=== PATIENT | female | born 1945 | race Caucasian/White ===

== ENCOUNTER 2018-08-20 19:31 | Inpatient (IN) | payer BC, MEDICAID ==
[~2018-08-20] VITALS: Ht 152.4 cm; Wt 74.7 kg
[~2018-08-20 19:31] MED LIST: ALEN70TA5 PO; ASPI81TA52 PO; CALC500T PO; ENAL5TAB PO; MTF1000T PO; SITA50TA2 PO
--- NOTE | 2018-08-20 21:26 | ERD ---
ER Documentation Chief Complaint Chief Complaint PALPITATIONS, SOB X 2 DAYS; HX OF RT BREAST CA, ON CHEMO HPI During the patient's encounter translation services were utilized Language: Aremenian Source: [employer]. 72-year-old female undergoing breast cancer chemotherapy at outside facility who presents the emergency room with 2 days of shortness of breath. The patient is describing palpitations. No chest pain or pressure or pleuritic pain. Bilateral lower extremity swelling is noted. Patient notes worsening shortness of breath over this timeframe. They do not know the medication she is taking for chemotherapy. No fevers chills or hemoptysis. Symptoms are moderate to severe. ROS All systems reviewed and are negative except as per history of present illness. Medications Home Meds Active Scripts Metformin* (Glucophage*) 1,000 Mg Tablet, 1000 MG PO BID, #60 TAB Prov:JANESSA MEDINA MD 11/25/15 Reported Medications Enalapril Maleate* (Enalapril Maleate*) 5 Mg Tablet, 5 MG PO DAILY, TAB 11/25/15 Calcium Carbonate* (Os-Cody 500*) 1 Tab Tablet, 1 TAB PO BID, TAB 11/25/15 Alendronate Sodium* (Fosamax*) 70 Mg Tablet, 70 MG PO Q7D, #4 TAB 11/25/15 Aspirin (Low Dose Aspirin) 81 Mg Tablet.dr, 81 MG PO DAILY, #30 TAB 11/25/15 Sitagliptin* (Januvia*) 50 Mg Tablet, 50 MG PO DAILY, #30 TAB 11/25/15 Allergies Allergies: Coded Allergies: No Known Allergy (Unverified , 11/25/15) PMhx/Soc History of Surgery: No Anesthesia Reaction: No Hx 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 Disorder: No Hx Respiratory Disorders: No Hx Cardiac Disorders: No Hx Psychiatric Problems: No Hx Miscellaneous Medical Probl: No Hx Alcohol Use: No Hx Substance Use: No Hx Tobacco Use: No FmHx Family History: No diabetes Physical Exam Vitals Vital Signs Date Temp Pulse Resp B/P (MAP) Pulse Ox O2 O2 Flow FiO2 Time Delivery Rate 08/20/18 118 30 122/85 100 BIPAP 22:44 (97) 08/20/18 124 100 50 21:36 08/20/18 122 29 124/83 99 21:20 (97) 08/20/18 Nasal 3 21:20 Cannula 08/20/18 97.7 135 32 165/72 98 20:40 (103) Physical Exam General: Increased work of breathing, anxious Head: Normocephalic, atraumatic. Eyes: Pupils equally reactive, EOM intact ENT: Moist mucous membranes Neck: Supple, no lymphadenopathy Respiratory: Scant rales at the right base, good aeration, increased work of breathing Cardiovascular: RRR, no murmurs, rubs, or gallops Abdominal: Soft, non-tender, non-distended, no peritoneal signs : Deferred MSK: bilateral lower extremity pitting edema, no unilateral swelling, 5/5 stre ngth Neurologic: Alert and oriented, moving all extremities, normal speech, no focal weakness, no cerebellar signs Skin: No rash Psych: Normal mood Result Diagram: 08/20/18213308/20/182133 Results 24 hrs Laboratory Tests Test 08/20/18 21:34 White Blood Count 6.2 10^3/ul Red Blood Count 3.59 10^6/ul Hemoglobin 10.2 g/dl Hematocrit 33.1 % Mean Corpuscular Volume 92.2 fl Mean Corpuscular Hemoglobin 28.4 pg Mean Corpuscular Hemoglobin Concent 30.8 g/dl Red Cell Distribution Width 18.4 % Platelet Count 304 10^3/UL Mean Platelet Volume 10.3 fl Immature Granulocytes % 1.500 % Neutrophils % 66.8 % Lymphocytes % 21.8 % Monocytes % 8.1 % Eosinophils % 1.3 % Basophils % 0.5 % Nucleated Red Blood Cells % 0.0 /100WBC Immature Granulocytes # 0.090 10^3/ul Neutrophils # 4.1 10^3/ul Lymphocytes # 1.4 10^3/ul Monocytes # 0.5 10^3/ul Eosinophils # 0.1 10^3/ul Basophils # 0.0 10^3/ul Nucleated Red Blood Cells # 0.0 10^3/ul Prothrombin Time 14.1 Sec Prothrombin Time Ratio 1.1 INR International Normalized Ratio 1.08 Activated Partial Thromboplast Time 36.0 Sec Sodium Level 144 mmol/L Potassium Level 4.8 mmol/L Chloride Level 107 mmol/L Carbon Dioxide Level 24 mmol/L Anion Gap 13 Blood Urea Nitrogen 14 mg/dl Creatinine 0.77 mg/dl Est Glomerular Filtrat Rate mL/min mL/min Glucose Level 183 mg/dl Calcium Level 9.3 mg/dl Total Bilirubin 0.2 mg/dl Direct Bilirubin 0.00 mg/dl Indirect Bilirubin 0.2 mg/dl Aspartate Amino Transf (AST/SGOT) 32 IU/L Alanine Aminotransferase (ALT/SGPT) 40 IU/L Alkaline Phosphatase 44 IU/L Troponin I 0.138 ng/ml B-Type Natriuretic Peptide 7300 PG/ML Total Protein 7.1 g/dl Albumin 3.9 g/dl Globulin 3.20 g/dl Albumin/Globulin Ratio 1.21 Current Medications Medications Dose Sig/Tera Start Time Status Last (Trade) Ordered Route PRN Stop Time Admin Dose Reason Admin Furosemide 40 mg ONCE ONCE 08/20/18 DC 08/20/18 (Lasix) IV 22:00 22:46 08/20/18 22:01 1 inch ONCE ONCE 08/20/18 DC 08/20/18 Nitroglycerin TD 22:00 22:46 08/20/18 22:01 (Nitroglyceri n 2% Oint) IV Flush 10 ml STK-MED 08/20/18 DC (NS 10 ml) ONCE .ROUTE 22:14 08/20/18 22:15 Sodium 100 ml @ ud STK-MED 08/20/18 DC Chloride ONCE .ROUTE 22:14 08/20/18 22:15 Iohexol 100 ml @ ud STK-MED 08/20/18 DC ONCE .ROUTE 22:14 08/20/18 22:15 Aspirin 162 mg ONCE ONCE 08/21/18 (Aspirin) PO 00:00 08/21/18 00:01 Procedures/MDM EKG, MONITORS, & DIAGNOSTIC IMAGING: EKG: I reviewed and interpreted a 12-lead EKG. Rhythm: Normal sinus rhythm ST Changes: No contiguous ST segment elevations T waves: No contiguous T wave inversions Impression: [No evidence of acute cardiac ischemia] Chest x-ray: I reviewed and interpreted a 1 view of the chest Mediastinum: No enlargement Cardiac silhouette: Mild cardiomegaly Airspace: Pulmonary edema Bones: No evidence of fracture CT PE: Pending LAB INTERPRETATION: I reviewed the laboratory testing and it shows small troponin elevation and BNP elevation MEDICAL DECISION MAKING: The patient has shortness of breath, increased work of breathing in the setting of breast cancer, chemotherapy and lower extremity edema. Consider possible chemotherapy-induced cardiomyopathy, CHF, pulmonary embolism, anxiety, pleural effusion. BP elevated but possibly stress response. Tx based on CXR if volume noted, lasix would be indication with mild NTG. Patient's work of breathing necessitates BIPAP. ER COURSE: * The patient was initially placed on positive pressure ventilation with improved symptomatology. She was given diuretic and nitroglycerin with appropriate preload and afterload reduction. The patient is better and has discontinued positive pressure ventilation. * Unclear etiology of the patient's non-ST elevation myocardial infarction. Consider possible chemo related cardiomyopathy, pulmonary embolism among others. The patient would warrant inpatient hospitalization and is unstable for transfer. * CTPA is pending at the time of signout. To be endorsed to the oncoming team and admitting team to follow-up. * Aspirin provided CONSULTATION: [None] DISPOSITION PLAN: Telemetry admission for management of non-ST elevation microinfarction Accepting care team and consultations: I discussed the current laboratory data, diagnostic imaging and emergency care provided. Admitting team: Dr. Dupree Admitting team indication: Insurance directed Critical Care Note: Total time: 30 minutes Indication/Organ System Threat: Acute respiratory failure I spent the above amount of critical care time with the patient, not including billable procedures. This included chart review, consultations, repeat bedside evaluations, and titration of appropriate medications to prevent cardiopulmonary or respiratory collapse. Departure Diagnosis: Primary Impression: Acute respiratory failure Respiratory failure complication: unspecified whether with hypoxia or hypercapnia Qualified Codes: J96.00 - Acute respiratory failure, unspecified whether with hypoxia or hypercapnia Additional Impressions: Acute pulmonary edema Non-ST elevation myocardial infarction (NSTEMI) History of breast cancer Condition: ANAM Barrios MD Aug 20, 2018 21:26
[2018-08-20] MEDS ORDERED: FUROSEMIDE 40 MG INJ IV ONE (22:00)
[2018-08-20] MEDS ORDERED: NITROGLYCERIN 2% 1 GM OINT PKT TD ONE (22:00)
[2018-08-20] MEDS ORDERED: IOHEXOL 100 ML ONE (22:14)
[2018-08-20] MEDS ORDERED: SOD CHLORIDE 0.9% 100 ML ONE (22:14)
[2018-08-21] VITALS (17 sets, daily range): BP systolic 78–127; BP diastolic 54–96; PULSE 95–108; RESP 20–39; Ht 152.4 cm; Wt 74.7 kg
[2018-08-21] MEDS ORDERED: ASPIRIN 81 MG TAB PO ONE
[2018-08-21] MEDS ORDERED: IBUPROFEN 200 MG TAB ONE (01:03)
[2018-08-21] MEDS ORDERED: ATOR20TA65 PO (01:22)
[2018-08-21] MEDS ORDERED: AMIT100T2 PO (01:22)
[2018-08-21] MEDS ORDERED: FENO134C PO (01:22)
[2018-08-21] MEDS ORDERED: ERGO500013 PO (01:22)
[2018-08-21] MEDS ORDERED: SITA1TAB5 PO (01:22)
[2018-08-21] MEDS ORDERED: CALC500T11 PO (01:22)
[2018-08-21] MEDS ORDERED: ASPI-817 PO (01:22)
[2018-08-21] MEDS ORDERED: LOSA1TAB22 PO (01:22)
[2018-08-21] MEDS ORDERED: METO-335 PO (01:22)
[2018-08-21] MEDS ORDERED: GABA300C16 PO (01:22)
[2018-08-21] MEDS ORDERED: INSU100I33 SQ (01:22)
[2018-08-21] MEDS ORDERED: NACL 0.9% 3 ML SYG IV SCH (04:00)
[2018-08-21] MEDS ORDERED: ONDANSETRON 4 MG INJ IV PRN ×2 (04:00)
[2018-08-21] MEDS ORDERED: NITROGLYCERIN (SL) 0.4 MG TAB SL PRN (04:00)
[2018-08-21] MEDS ORDERED: ACETAMINOPHEN 325 MG TAB PO PRN ×2 (04:00)
--- NOTE | 2018-08-21 05:51 | HP ---
Date/Time of Note Date/Time of Note DATE: 08/21/18 TIME: 05:47 Assessment/Plan VTE Prophylaxis Pharmacological prophylaxis: heparin Lines/Catheters IV Catheter Type (from Nrs): portacath accessed Assessment/Plan Assessment/Plan 1. Shortness of breath and palpitation, 2/2 new onset CHF: ?Side effect of chemo vs CAD -Obtain 2D echo -Lasix -Trend troponin -CTPA shows no PE 2. Positive troponin: NSTEMI vs demand ischemia -will treat as NSTEMI -Supplemental oxygen, aspirin, treatment of Lovenox 3. Right breast cancer on chemo: Oncology consult Result Diagram: 08/20/18213308/20/182133 Results 24hrs Laboratory Tests Test 08/20/18 21:34 08/21/18 03:42 White Blood Count 6.2 # Red Blood Count 3.59 #L Hemoglobin 10.2 #L Hematocrit 33.1 #L Mean Corpuscular Volume 92.2 Mean Corpuscular Hemoglobin 28.4 L Mean Corpuscular Hemoglobin Concent 30.8 L Red Cell Distribution Width 18.4 #H Platelet Count 304 Mean Platelet Volume 10.3 Immature Granulocytes % 1.500 H Neutrophils % 66.8 Lymphocytes % 21.8 Monocytes % 8.1 Eosinophils % 1.3 Basophils % 0.5 Nucleated Red Blood Cells % 0.0 Immature Granulocytes # 0.090 H Neutrophils # 4.1 Lymphocytes # 1.4 Monocytes # 0.5 Eosinophils # 0.1 Basophils # 0.0 Nucleated Red Blood Cells # 0.0 Prothrombin Time 14.1 Prothrombin Time Ratio 1.1 INR International Normalized Ratio 1.08 Activated Partial Thromboplast Time 36.0 H Sodium Level 144 Potassium Level 4.8 Chloride Level 107 Carbon Dioxide Level 24 Anion Gap 13 Blood Urea Nitrogen 14 Creatinine 0.77 Est Glomerular Filtrat Rate mL/min Glucose Level 183 Calcium Level 9.3 Total Bilirubin 0.2 Direct Bilirubin 0.00 Indirect Bilirubin 0.2 Aspartate Amino Transf (AST/SGOT) 32 Alanine Aminotransferase (ALT/SGPT) 40 Alkaline Phosphatase 44 Troponin I 0.138 *H 0.161 *H B-Type Natriuretic Peptide 7300 H Total Protein 7.1 Albumin 3.9 Globulin 3.20 Albumin/Globulin Ratio 1.21 Creatine Kinase 40 Creatine Kinase Index 4.3 Creatinine Kinase MB (Mass) 1.72 HPI/ROS Admit Date/Time Admit Date/Time Hx of Present Illness This is a 72-year-old female with a history of right breast cancer on chemo who was brought to the ER for a shortness of breath and palpitations. Symptoms been going on for the past 2 days. Denied chest pain. When she presented to ER, she was tachycardic with a heart rate of 135 and tachypneic in the high 20s. Chest x-ray shows mild pulmonary vascular congestion and mild cardiomegaly. CTPA shows findings suggestive of CHF. No PE. A 0.5 cm lung nodule was also noted. PMH/Family/Social Past Medical History Past Surgical History Past Surgical Hx: other (see hpi) Family History Significant Family History: other Social History Smoking Status: Unknown if ever smoked Drug Use: other Exam Constitutional: other (no acute distress) Eyes: EOMI, PERRL Neck: supple Respiratory: normal air movement Cardiovascular: nl pulses Gastrointestinal: soft Extremities: normal pulses Medications Current Medications Ondansetron HCl (Zofran Inj) 4 mg ER BRIDGE PRN IV NAUSEA/VOMITING; Start 07/27 12/13 at 00:00; Stop 08/21/18 at 23:59 Acetaminophen (Tylenol Tab) 650 mg ER BRIDGE PRN PO .MILD PAIN 1-3 OR TEMP; Start 08/21/18 at 00:00; Stop 08/21/18 at 23:59 IV Flush (NS 3 ml) 3 ml PER PROTOCOL IV ; Start 08/21/18 at 04:00 Ondansetron HCl (Zofran Inj) 4 mg Q6H PRN IV NAUSEA/VOMITING; Start 08/21/18 at 04:00 Nitroglycerin (Nitroglycerin (Sl Tab) 0.4 Mg) 1 tab Q5M PRN SL .CHEST PAIN; Start 08/21/18 at 04:00 Acetaminophen (Tylenol Tab) 650 mg Q6H PRN PO .PAIN 1-3 OR TEMP; Start 08/21/18 at 04:00 Heparin Sodium (Porcine) (Heparin (5000 Units/1ml)) 5,000 unit Q12 SC ; Start 08/21/18 at 09:00 Albuterol/ Ipratropium (Duoneb) 3 ml Q2H RESP THERAPY PRN HHN SHORTNESS OF BREATH; Start 08/21/18 at 04:00 Amitriptyline HCl (Elavil) 1,200 mg DAILY PO ; Start 08/21/18 at 09:00; Status UNV Aspirin (Halfprin) 81 mg DAILY PO ; Start 08/21/18 at 09:00 Atorvastatin Calcium (Lipitor) 20 mg DAILY@2100 PO ; Start 08/21/18 at 21:00 Calcium Carbonate (Oyster Shell Calcium) 1.25 gm DAILY PO ; Start 08/21/18 at 09:00 Enalapril Maleate (Vasotec) 5 mg DAILY PO ; Start 08/21/18 at 09:00 Gabapentin (Neurontin) 30 mg TID PO ; Start 08/21/18 at 09:00; Status UNV Metoprolol Succinate (Toprol Xl) 25 mg DAILY PO ; Start 08/21/18 at 09:00 Furosemide (Lasix) 20 mg DAILY IV ; Start 08/21/18 at 09:00 Fenofibrate (Tricor) 145 mg DAILY PO ; Start 08/21/18 at 09:00 Coded Allergies: No Known Allergy (Unverified , 08/21/18) Social History Smoking Status: Unknown if ever smoked Exam/Review of Systems Vital Signs Vitals Vital Signs Date Temp Pulse Resp B/P (MAP) Pulse Ox O2 O2 Flow FiO2 Time Delivery Rate 08/21/18 107 25 108/75 100 Nasal 2.0 04:45 (86) Cannula 08/20/18 50 21:36 08/20/18 97.7 20:40 EVERETT RUSSELL MD Aug 21, 2018 05:51
[2018-08-21] MEDS ORDERED: ENOXAPARIN 80 MG/0.8 ML SYG SC SCH (06:00)
[2018-08-21] MEDS ORDERED: NON-FORMULARY/PATIENT OWN MED (Fenofibrate, Micronized (Fenofibrate) 134 MG) PO SCH (09:00)
[2018-08-21] MEDS ORDERED: METOPROLOL (XL) 25 MG TAB PO SCH (09:00)
[2018-08-21] MEDS ORDERED: HEPARIN 5,000 UNIT/1 ML VIAL SC SCH (09:00)
[2018-08-21] MEDS ORDERED: AMITRIPTYLINE 50 MG TAB PO SCH (09:00)
[2018-08-21] MEDS ORDERED: ENALAPRIL 5 MG TAB PO SCH (09:00)
[2018-08-21] MEDS: FUROSEMIDE 20 MG INJ IV SCH (11:18)
[2018-08-21] MEDS: ASPIRIN (EC) 81 MG TAB PO SCH (11:26)
[2018-08-21] MEDS: FENOFIBRATE 145 MG TAB PO SCH (11:27)
[2018-08-21] MEDS: CALCIUM CARBONATE 1.25 GM TAB PO SCH (11:28)
[2018-08-21] MEDS ORDERED: SOD CHLORIDE 0.9% 500 ML IV ONE (14:30)
[2018-08-21] MEDS ORDERED: GLUCOSE GEL 15 GRAM TUBE BUCCAL PRN (15:00)
[2018-08-21] MEDS ORDERED: GLUCAGON 1 MG INJ IM PRN (15:00)
[2018-08-21] MEDS ORDERED: GLUCOSE GEL 15 GRAM TUBE PO PRN ×2 (15:00)
[2018-08-21] MEDS ORDERED: DEXTROSE 50% 50 ML SYRINGE IV PRN ×2 (15:00)
--- NOTE | 2018-08-21 15:27 | PN ---
Date/Time of Note Date/Time of Note DATE: 08/21/18 TIME: 15:16 Assessment/Plan VTE Prophylaxis Pharmacological prophylaxis: LMWH Lines/Catheters IV Catheter Type (from Nrs): portacath accessed Assessment/Plan Hospital Course Subjective : feels a bit better, hungry also having headaches, per son , patient has also been having flulike symptoms Objective : General: A&O x3, answering questions appropriately, obese, has lost all her hair, elderly, ill looking HEENT: NC/ AT. PERRL. EOM intact, + pallor Neck: supple CVS: S1, S2,tachycardia. no murmurs. no pain on chest wall palpation Lungs: CTA b/l. no wheezing or rhonchi, but quite diminished bilaterally Abd: soft, nontender, +BS Ext: moving all extremities, edema skin: no rashes CTA 08/21/18 2am : 1. Limited CT pulmonary angiogram due to breathing motion artifact. Negative for evidence of central PE in the main pulmonary arteries, lobar branches or first order segmental branches. Evaluation of subsegmental branches of the pulmonary arteries is not possible. 2. Interstitial pulmonary edema with interlobular septal thickening and right greater than left pleural effusions in keeping with volume overload or CHF. 3. Mild cardiomegaly. Reflux of contrast from the right heart into the intrahepatic IVC may be due to right heart dysfunction. 4. Focal bronchiolitis in the right middle lobe may be infectious or inflammatory. 5. 0.5 cm pulmonary nodule in the right middle lobe. In the absence of risk factors or a known primary neoplasm, no further imaging is required per 2017 Fleischner Society guidelines. In a high risk patient, follow-up low-dose chest CT at 12 months is optional. Alternatively, recommend correlation with previous imaging. assessment and plan: 72-year-old female undergoing breast cancer chemotherapy at outside facility who presents the emergency room with 2 days of shortness of breath managed as follws : 1. Resp failure, mild, acute , 2/2 #2, improved, now on 3L 2. Fluid overload, New CHF? -BNP 7300, f/u echo -2/2 #3 3. NSTEMI vs demand: 4. Hypotension -got lasix, metoprolol and enalapril, likely med induced 5. LRTI, Bronchiolitis 6. DM A1c 8.0 7. Breast Ca on weekly chemo [facility]?) 8. dyslipidemia 9. Hypochromic anemia : -likely 2/2 chronic disease PLAN: -change level of care to ICU based on hypotension -send blood and urine cultures -empiric abx -Cardiology consult, f/u echo report -No further diuresis for now -continue treatment dose lovenox -continue to trend troponins -SSI and diabetic diet -Continue supportive care Further interventions per course Care time >40mins Result Diagram: 08/21/18 0754 08/21/18 0754 Results 24hrs Laboratory Tests Test 08/20/18 21:34 08/21/18 03:42 08/21/18 07:54 08/21/18 09:41 White Blood Count 6.2 # 6.3 Red Blood Count 3.59 #L 3.71 L Hemoglobin 10.2 #L 10.5 L Hematocrit 33.1 #L 33.9 L Mean Corpuscular 92.2 91.4 Volume Mean Corpuscular 28.4 L 28.3 L Hemoglobin Mean Corpuscular 30.8 L 31.0 L Hemoglobin Concent Red Cell 18.4 #H 18.4 H Distribution Width Platelet Count 304 298 Mean Platelet Volume 10.3 10.0 Immature 1.500 H 1.300 H Granulocytes % Neutrophils % 66.8 70.6 Lymphocytes % 21.8 18.5 Monocytes % 8.1 7.6 Eosinophils % 1.3 1.7 Basophils % 0.5 0.3 Nucleated Red Blood 0.0 0.3 H Cells % Immature 0.090 H 0.080 H Granulocytes # Neutrophils # 4.1 4.5 Lymphocytes # 1.4 1.2 Monocytes # 0.5 0.5 Eosinophils # 0.1 0.1 Basophils # 0.0 0.0 Nucleated Red Blood 0.0 0.0 Cells # Prothrombin Time 14.1 Prothrombin Time 1.1 Ratio INR International 1.08 Normalized Ratio Activated 36.0 H Partial Thromboplast Time Sodium Level 144 145 H Potassium Level 4.8 4.8 Chloride Level 107 106 Carbon Dioxide Level 24 27 Anion Gap 13 12 Blood Urea Nitrogen 14 14 Creatinine 0.77 0.84 Est Glomerular Filtrat Rate mL/min Glucose Level 183 133 # Calcium Level 9.3 9.5 Total Bilirubin 0.2 0.3 Direct Bilirubin 0.00 0.00 Indirect Bilirubin 0.2 0.3 Aspartate Amino 32 30 Transf (AST/SGOT) Alanine 40 31 Aminotransferase (AL T/SGPT) Alkaline Phosphatase 44 43 Troponin I 0.138 *H 0.161 *H 0.121 H B-Type Natriuretic 7300 H Peptide Total Protein 7.1 7.2 Albumin 3.9 4.0 Globulin 3.20 3.20 Albumin/Globulin 1.21 1.25 Ratio Creatine Kinase 40 39 Creatine Kinase 4.3 3.9 Index Creatinine Kinase MB 1.72 1.53 (Mass) Hemoglobin A1c 8.0 H Magnesium Level 1.9 Triglycerides Level 193 H Cholesterol Level 118 LDL Cholesterol, 50 Calculated HDL Cholesterol 29 L Cholesterol/HDL 4.0 Ratio Thyroid Stimulating 4.060 Hormone (TSH) Test 08/21/18 11:30 08/21/18 11:42 08/21/18 12:24 Bedside Glucose 142 131 Lab Scanned Report LAB Exam/Review of Systems Exam Vitals Vital Signs Date Temp Pulse Resp B/P (MAP) Pulse Ox O2 O2 Flow FiO2 Time Delivery Rate 08/21/18 101 28 82/53 (63) 99 Nasal 2.0 13:30 Cannula 08/21/18 98.0 11:00 08/20/18 50 21:36 Results Results 24hrs Laboratory Tests Test 08/20/18 21:34 08/21/18 03:42 08/21/18 07:54 08/21/18 09:41 White Blood Count 6.2 # 6.3 Red Blood Count 3.59 #L 3.71 L Hemoglobin 10.2 #L 10.5 L Hematocrit 33.1 #L 33.9 L Mean Corpuscular 92.2 91.4 Volume Mean Corpuscular 28.4 L 28.3 L Hemoglobin Mean Corpuscular 30.8 L 31.0 L Hemoglobin Concent Red Cell 18.4 #H 18.4 H Distribution Width Platelet Count 304 298 Mean Platelet Volume 10.3 10.0 Immature 1.500 H 1.300 H Granulocytes % Neutrophils % 66.8 70.6 Lymphocytes % 21.8 18.5 Monocytes % 8.1 7.6 Eosinophils % 1.3 1.7 Basophils % 0.5 0.3 Nucleated Red Blood 0.0 0.3 H Cells % Immature 0.090 H 0.080 H Granulocytes # Neutrophils # 4.1 4.5 Lymphocytes # 1.4 1.2 Monocytes # 0.5 0.5 Eosinophils # 0.1 0.1 Basophils # 0.0 0.0 Nucleated Red Blood 0.0 0.0 Cells # Prothrombin Time 14.1 Prothrombin Time 1.1 Ratio INR International 1.08 Normalized Ratio Activated 36.0 H Partial Thromboplast Time Sodium Level 144 145 H Potassium Level 4.8 4.8 Chloride Level 107 106 Carbon Dioxide Level 24 27 Anion Gap 13 12 Blood Urea Nitrogen 14 14 Creatinine 0.77 0.84 Est Glomerular Filtrat Rate mL/min Glucose Level 183 133 # Calcium Level 9.3 9.5 Total Bilirubin 0.2 0.3 Direct Bilirubin 0.00 0.00 Indirect Bilirubin 0.2 0.3 Aspartate Amino 32 30 Transf (AST/SGOT) Alanine 40 31 Aminotransferase (AL T/SGPT) Alkaline Phosphatase 44 43 Troponin I 0.138 *H 0.161 *H 0.121 H B-Type Natriuretic 7300 H Peptide Total Protein 7.1 7.2 Albumin 3.9 4.0 Globulin 3.20 3.20 Albumin/Globulin 1.21 1.25 Ratio Creatine Kinase 40 39 Creatine Kinase 4.3 3.9 Index Creatinine Kinase MB 1.72 1.53 (Mass) Hemoglobin A1c 8.0 H Magnesium Level 1.9 Triglycerides Level 193 H Cholesterol Level 118 LDL Cholesterol, 50 Calculated HDL Cholesterol 29 L Cholesterol/HDL 4.0 Ratio Thyroid Stimulating 4.060 Hormone (TSH) Test 08/21/18 11:30 08/21/18 11:42 08/21/18 12:24 Bedside Glucose 142 131 Lab Scanned Report LAB Medications Medication Current Medications Ondansetron HCl (Zofran Inj) 4 mg ER BRIDGE PRN IV NAUSEA/VOMITING; Start 08/21/18 at 00:00; Stop 08/21/18 at 23:59 Acetaminophen (Tylenol Tab) 650 mg ER BRIDGE PRN PO .MILD PAIN 1-3 OR TEMP; Start 08/21/18 at 00:00; Stop 08/21/18 at 23:59 IV Flush (NS 3 ml) 3 ml PER PROTOCOL IV ; Start 08/21/18 at 04:00 Ondansetron HCl (Zofran Inj) 4 mg Q6H PRN IV NAUSEA/VOMITING; Start 08/21/18 at 04:00 Nitroglycerin (Nitroglycerin (Sl Tab) 0.4 Mg) 1 tab Q5M PRN SL .CHEST PAIN; Start 08/21/18 at 04:00 Acetaminophen (Tylenol Tab) 650 mg Q6H PRN PO .PAIN 1-3 OR TEMP; Start 08/21/18 at 04:00 Albuterol/ Ipratropium (Duoneb) 3 ml Q2H RESP THERAPY PRN HHN SHORTNESS OF BREATH; Start 08/21/18 at 04:00 Aspirin (Halfprin) 81 mg DAILY PO Last administered on 08/21/18at 11:26; Admin Dose 81 MG; Start 08/21/18 at 09:00 Atorvastatin Calcium (Lipitor) 20 mg DAILY@2100 PO ; Start 08/21/18 at 21:00 Calcium Carbonate (Oyster Shell Calcium) 1.25 gm DAILY PO Last administered on 08/21/18at 11:28; Admin Dose 1.25 GM; Start 08/21/18 at 09:00 Gabapentin (Neurontin) 300 mg TID PO ; Start 08/21/18 at 13:00 Furosemide (Lasix) 20 mg DAILY IV Last administered on 08/21/18at 11:18; Admin Dose 20 MG; Start 08/21/18 at 09:00 Fenofibrate (Tricor) 145 mg DAILY PO Last administered on 08/21/18at 11:27; Admin Dose 145 MG; Start 08/21/18 at 09:00 Enoxaparin Sodium (Lovenox) 75 mg Q12H SC Last administered on 08/21/18at 11:18; Admin Dose 75 MG; Start 08/21/18 at 06:00 Sodium Chloride 500 ml @ 500 mls/hr Q1H ONCE IV ; Start 08/21/18 at 14:30; Stop 08/21/18 at 15:29 Insulin Aspart (Novolog Insulin Pen) NOVOLOG *MILD* ALGORITHM WITH MEALS BEDTIME SC ; Start 08/21/18 at 18:00 Miscellaneous Information 1 ea NOTE XX ; Start 08/21/18 at 15:00 Glucose (Glutose) 15 gm Q15M PRN PO DECREASED GLUCOSE; Start 08/21/18 at 15:00 Glucose (Glutose) 22.5 gm Q15M PRN PO DECREASED GLUCOSE; Start 08/21/18 at 15:00 Dextrose (D50w Syringe) 25 ml Q15M PRN IV DECREASED GLUCOSE; Start 08/21/18 at 15:00 Dextrose (D50w Syringe) 50 ml Q15M PRN IV DECREASED GLUCOSE; Start 08/21/18 at 15:00 Glucagon (Glucagen) 1 mg Q15M PRN IM DECREASED GLUCOSE; Start 08/21/18 at 15:00 Glucose (Glutose) 15 gm Q15M PRN BUCCAL DECREASED GLUCOSE; Start 08/21/18 at 15:00 ALEXYS VÁZQUEZ Aug 21, 2018 15:27
--- NOTE | 2018-08-21 15:32 | RADRPT ---
Echocardiogram Report Patient Name: BRANDON PICHARDOPatient ID: [id number] : 1945 (72y 10m)Study Date: 08/21/2018 8:21:24 AM Gender: FAccession #: [id number] Tech: Haley Mcneil SHYAM [facility] Ref.Physician: EVERETT RUSSELL Height(Cm): BSA: Weight(Kg): Quality: AdequateAccount #: Procedures: Echocardiographic Report: Transthoracic echocardiogram with complete 2D, M-Mode, and doppler examination. Indications: NSTEMI. Measurements: 2D/M Mode Doppler Measurement Value Normal Range Measurement Value Normal Range LVIDd 2D 5.4 [ 3.8 - 5.2 ] cm AV Peak Carlos 0.9 [ 100.0 - 170.0 ] cm/sec LVIDs 2D 4.7 [ 2.2 - 3.5 ] cm AV Peak PG 4.0 [ 2.0 - 9.0 ] mmHg LVPWd 2D 0.9 [ 0.6 - 0.9 ] cm LVOT Peak Carlos 0.7 [ 70.0 - 110.0 ] cm/sec IVSd 2D 1.0 [ 0.6 - 0.9 ] cm LVOT Peak PG 2.0 [ 2.0 - 6.0 ] mmHg IVS/LVPW 2D 1.0 ratio AoR Diam 2D 2.6 [ 2.3 - 3.1 ] cm LA/Ao 2D 1 ratio LA Dimen 2D 3.8 [ 2.7 - 3.8 ] cm Findings: Left Ventricle: Normal left ventricular cavity size. Mild concentric left ventricular hypertrophy. Severe left ventricular systolic dysfunction. Ejection fraction is visually estimated at 30 %. Abnormal Diastolic Function. Right Ventricle: Normal right ventricular size. Normal right ventricular systolic function. Left Atrium: Upper limit of normal left atrial size. Right Atrium: The right atrium is normal in size. Mitral Valve: Mitral valve leaflets appear mildly thickened. Mild mitral annular calcification. Moderate mitral valve regurgitation. Aortic Valve: Normal appearance of the aortic valve. No significant aortic stenosis or insufficiency. Tricuspid Valve: Normal appearance of the tricuspid valve. There is mild tricuspid regurgitation. Pulmonic Valve: Normal pulmonic valve appearance. Pericardium: Normal pericardium with no significant pericardial effusion. Aorta: Normal aortic root. IVC: Normal size and normal respiratory collapse consistent with normal right atrial pressure. Conclusions: Normal left ventricular cavity size. Mild concentric left ventricular hypertrophy. Severe left ventricular systolic dysfunction. Ejection fraction is visually estimated at 30 %. Abnormal Diastolic Function. Normal right ventricular size. Normal right ventricular systolic function. Upper limit of normal left atrial size. The right atrium is normal in size. Moderate mitral valve regurgitation. No significant aortic stenosis or insufficiency. There is mild tricuspid regurgitation. Normal pericardium with no significant pericardial effusion. Electronically Signed By: Lucas Otto 2018-08-21 15:31:10 PDT
--- NOTE | 2018-08-21 16:10 | CONS ---
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 Echocardiogram with LV ejection fraction 30%. -Patient was put on antihypertensives and diuretics there was sudden drop in blood pressure. -Would hold antihypertensives at the current time, would continue diuretics as blood pressure and renal function tolerates -Troponins minimally elevated and trending down, this is likely secondary to decompensated congestive heart failure and overall clinical state -Continue telemetry monitoring. Consultation Date/Type/Reason Admit Date/Time Type of Consult Cardiology Reason for Consultation Shortness of breath and fatigue Date/Time of Note DATE: 08/21/18 TIME: 16:04 Hx of Present Illness This is a very pleasant 72-year-old female with history of breast cancer undergoing chemotherapy, hypertension who presents with multiple complaints. Patient underwent chemotherapy 1 week ago today for breast cancer. Since then, she has been feeling progressively weaker and tired. She also developed shortness of breath over the past few days, intermittent palpitations. She denies any chest pain. Because of worsening symptoms, she came to the emergency room for evaluation and care. With standing up, she does get symptoms of dizziness at times. She does feel weak but is requesting food. She does complain of intermittent nausea and abdominal discomfort. She denies any fevers or chills. She does have intermittent cough but is nonproductive. 12 point review of systems was performed with all pertinent positives and negatives mentioned above and all else is negative Past Medical History Breast cancer Medical History: diabetes, hypertension Home Meds Reported Medications Insulin Glargine,Hum.rec.anlog (Basaglar Kwikpen U-100) 100 Unit/1 Ml Insuln.pen, 40 UNIT SQ QHS 08/21/18 Sitagliptin Phos/Metformin HCl (Janumet 50-1,000 mg Tablet) 1 Each Tablet, 1 TAB PO BID for 30 Days, #60 08/21/18 Metoprolol Succinate* (Toprol XL*) 25 Mg Tab.sr.24h, 25 MG PO DAILY for 30 Days, #30 08/21/18 Amitriptyline Hcl* (Amitriptyline Hcl*) 100 Mg Tablet, 100 MG PO DAILY for 30 Days, #30 08/21/18 Fenofibrate, Micronized (Fenofibrate) 134 Mg Capsule, 134 MG PO DAILY for 30 Days, #30 08/21/18 Atorvastatin Calcium (Atorvastatin Calcium) 20 Mg Tablet, 20 MG PO DAILY for 30 Days, #30 08/21/18 Losartan-Hydrochlorothiazide (Losartan-HCTZ) 50-12.5 Mg Tab, 1 TAB PO DAILY for 30 Days, #30 08/21/18 Gabapentin* (Gabapentin*) 300 Mg Capsule, 300 MG PO TID for 30 Days, #90 08/21/18 Aspirin* (Aspirin* EC) 81 Mg Tablet.dr, 81 MG PO DAILY for 30 Days, #30 08/21/18 Ergocalciferol (Vitamin D2) (VITAMIN D2) 50,000 Unit Capsule, 19358 MG PO Q7D for 28 Days, #4 08/21/18 Calcium Carbonate (Oysco-500) 500 Mg Tablet, 500 MG PO DAILY for 30 Days, #60 08/21/18 Enalapril Maleate* (Enalapril Maleate*) 5 Mg Tablet, 5 MG PO DAILY, TAB 11/25/15 Calcium Carbonate* (Os-Cody 500*) 1 Tab Tablet, 1 TAB PO BID, TAB 11/25/15 Alendronate Sodium* (Fosamax*) 70 Mg Tablet, 70 MG PO Q7D PRN for QFRI, #4 TAB 11/25/15 Discontinued Reported Medications Aspirin (Low Dose Aspirin) 81 Mg Tablet.dr, 81 MG PO DAILY, #30 TAB 11/25/15 Sitagliptin* (Januvia*) 50 Mg Tablet, 50 MG PO DAILY, #30 TAB 11/25/15 Discontinued Scripts Metformin* (Glucophage*) 1,000 Mg Tablet, 1000 MG PO BID, #60 TAB Prov:JANESSA MEDINA MD 11/25/15 Medications Current Medications Ondansetron HCl (Zofran Inj) 4 mg ER BRIDGE PRN IV NAUSEA/VOMITING; Start 08/21/18 at 00:00; Stop 08/21/18 at 23:59 Acetaminophen (Tylenol Tab) 650 mg ER BRIDGE PRN PO .MILD PAIN 1-3 OR TEMP; Start 08/21/18 at 00:00; Stop 08/21/18 at 23:59 IV Flush (NS 3 ml) 3 ml PER PROTOCOL IV ; Start 08/21/18 at 04:00 Ondansetron HCl (Zofran Inj) 4 mg Q6H PRN IV NAUSEA/VOMITING; Start 08/21/18 at 04:00 Nitroglycerin (Nitroglycerin (Sl Tab) 0.4 Mg) 1 tab Q5M PRN SL .CHEST PAIN; Start 08/21/18 at 04:00 Acetaminophen (Tylenol Tab) 650 mg Q6H PRN PO .PAIN 1-3 OR TEMP Last administered on 08/21/18at 15:33; Admin Dose 650 MG; Start 08/21/18 at 04:00 Albuterol/ Ipratropium (Duoneb) 3 ml Q2H RESP THERAPY PRN HHN SHORTNESS OF BREATH; Start 08/21/18 at 04:00 Aspirin (Halfprin) 81 mg DAILY PO Last administered on 08/21/18 11:26; Admin Dose 81 MG; Start 08/21/18 at 09:00 Atorvastatin Calcium (Lipitor) 20 mg DAILY@2100 PO ; Start 08/21/18 at 21:00 Calcium Carbonate (Oyster Shell Calcium) 1.25 gm DAILY PO Last administered on 08/21/18at 11:28; Admin Dose 1.25 GM; Start 08/21/18 at 09:00 Gabapentin (Neurontin) 300 mg TID PO ; Start 08/21/18 at 13:00 Furosemide (Lasix) 20 mg DAILY IV Last administered on 08/21/18 11:18; Admin Dose 20 MG; Start 08/21/18 at 09:00 Fenofibrate (Tricor) 145 mg DAILY PO Last administered on 08/21/18 11:27; Admin Dose 145 MG; Start 08/21/18 at 09:00 Enoxaparin Sodium (Lovenox) 75 mg Q12H SC Last administered on 08/21/18at 11:18; Admin Dose 75 MG; Start 08/21/18 at 06:00 Insulin Aspart (Novolog Insulin Pen) NOVOLOG *MILD* ALGORITHM WITH MEALS BEDTIME SC ; Start 08/21/18 at 18:00 Miscellaneous Information 1 ea NOTE XX ; Start 08/21/18 at 15:00 Glucose (Glutose) 15 gm Q15M PRN PO DECREASED GLUCOSE; Start 08/21/18 at 15:00 Glucose (Glutose) 22.5 gm Q15M PRN PO DECREASED GLUCOSE; Start 08/21/18 at 15:00 Dextrose (D50w Syringe) 25 ml Q15M PRN IV DECREASED GLUCOSE; Start 08/21/18 at 15:00 Dextrose (D50w Syringe) 50 ml Q15M PRN IV DECREASED GLUCOSE; Start 08/21/18 at 15:00 Glucagon (Glucagen) 1 mg Q15M PRN IM DECREASED GLUCOSE; Start 08/21/18 at 15:00 Glucose (Glutose) 15 gm Q15M PRN BUCCAL DECREASED GLUCOSE; Start 08/21/18 at 15:00 Cefepime HCl 50 ml @ 100 mls/hr Q24H IVPB ; Start 08/21/18 at 15:30 Allergies: Coded Allergies: No Known Allergy (Unverified , 08/21/18) Family History Significant Family History: no pertinent family hx Social History Smoking Status: Unknown if ever smoked Exam/Review of Systems Vital Signs Vitals Vital Signs Date Temp Pulse Resp B/P (MAP) Pulse Ox O2 O2 Flow FiO2 Time Delivery Rate 08/21/18 98.7 105 28 106/87 99 Nasal 2.0 15:27 (93) Cannula 08/20/18 50 21:36 Exam Constitutional: alert, oriented (Lying in bed, appears tired, able to 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 to me 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 with 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) Head: normocephalic Respiratory: other (Coarse breath sounds bilaterally, mild scattered crackles, no wheezing) Cardiovascular: regular rate and rhythm (S1-S2 heard) Gastrointestinal: soft, non-tender, bowel sounds Extremities: edema Labs Result Diagram: 08/21/18 0754 08/21/18 0754 Results 24hrs Laboratory Tests Test 08/20/18 21:34 08/21/18 03:42 08/21/18 07:54 08/21/18 09:41 White Blood Count 6.2 # 6.3 Red Blood Count 3.59 #L 3.71 L Hemoglobin 10.2 #L 10.5 L Hematocrit 33.1 #L 33.9 L Mean Corpuscular 92.2 91.4 Volume Mean Corpuscular 28.4 L 28.3 L Hemoglobin Mean Corpuscular 30.8 L 31.0 L Hemoglobin Concent Red Cell 18.4 #H 18.4 H Distribution Width Platelet Count 304 298 Mean Platelet Volume 10.3 10.0 Immature 1.500 H 1.300 H Granulocytes % Neutrophils % 66.8 70.6 Lymphocytes % 21.8 18.5 Monocytes % 8.1 7.6 Eosinophils % 1.3 1.7 Basophils % 0.5 0.3 Nucleated Red Blood 0.0 0.3 H Cells % Immature 0.090 H 0.080 H Granulocytes # Neutrophils # 4.1 4.5 Lymphocytes # 1.4 1.2 Monocytes # 0.5 0.5 Eosinophils # 0.1 0.1 Basophils # 0.0 0.0 Nucleated Red Blood 0.0 0.0 Cells # Prothrombin Time 14.1 Prothrombin Time 1.1 Ratio INR International 1.08 Normalized Ratio Activated 36.0 H Partial Thromboplast Time Sodium Level 144 145 H Potassium Level 4.8 4.8 Chloride Level 107 106 Carbon Dioxide Level 24 27 Anion Gap 13 12 Blood Urea Nitrogen 14 14 Creatinine 0.77 0.84 Est Glomerular Filtrat Rate mL/min Glucose Level 183 133 # Calcium Level 9.3 9.5 Total Bilirubin 0.2 0.3 Direct Bilirubin 0.00 0.00 Indirect Bilirubin 0.2 0.3 Aspartate Amino 32 30 Transf (AST/SGOT) Alanine 40 31 Aminotransferase (AL T/SGPT) Alkaline Phosphatase 44 43 Troponin I 0.138 *H 0.161 *H 0.121 H B-Type Natriuretic 7300 H Peptide Total Protein 7.1 7.2 Albumin 3.9 4.0 Globulin 3.20 3.20 Albumin/Globulin 1.21 1.25 Ratio Creatine Kinase 40 39 Creatine Kinase 4.3 3.9 Index Creatinine Kinase MB 1.72 1.53 (Mass) Hemoglobin A1c 8.0 H Magnesium Level 1.9 Triglycerides Level 193 H Cholesterol Level 118 LDL Cholesterol, 50 Calculated HDL Cholesterol 29 L Cholesterol/HDL 4.0 Ratio Thyroid Stimulating 4.060 Hormone (TSH) Test 08/21/18 11:30 08/21/18 11:42 08/21/18 12:24 08/21/18 15:00 Bedside Glucose 142 131 Lab Scanned Report LAB D-Dimer 829.88 H D-Dimer Comment Imaging Imaging ECG with sinus rhythm/tachycardia at 130 bpm, QRS 72 ms, poor R wave progre ssion, nonspecific ST abnormalities Telemetry currently heart rate 105 Medications Medications Current Medications Ondansetron HCl (Zofran Inj) 4 mg ER BRIDGE PRN IV NAUSEA/VOMITING; Start 08/21/18 at 00:00; Stop 08/21/18 at 23:59 Acetaminophen (Tylenol Tab) 650 mg ER BRIDGE PRN PO .MILD PAIN 1-3 OR TEMP; Start 08/21/18 at 00:00; Stop 08/21/18 at 23:59 IV Flush (NS 3 ml) 3 ml PER PROTOCOL IV ; Start 08/21/18 at 04:00 Ondansetron HCl (Zofran Inj) 4 mg Q6H PRN IV NAUSEA/VOMITING; Start 08/21/18 at 04:00 Nitroglycerin (Nitroglycerin (Sl Tab) 0.4 Mg) 1 tab Q5M PRN SL .CHEST PAIN; Start 08/21/18 at 04:00 Acetaminophen (Tylenol Tab) 650 mg Q6H PRN PO .PAIN 1-3 OR TEMP Last administered on 08/21/18at 15:33; Admin Dose 650 MG; Start 08/21/18 at 04:00 Albuterol/ Ipratropium (Duoneb) 3 ml Q2H RESP THERAPY PRN HHN SHORTNESS OF BREATH; Start 08/21/18 at 04:00 Aspirin (Halfprin) 81 mg DAILY PO Last administered on 08/21/18at 11:26; Admin Dose 81 MG; Start 08/21/18 at 09:00 Atorvastatin Calcium (Lipitor) 20 mg DAILY@2100 PO ; Start 08/21/18 at 21:00 Calcium Carbonate (Oyster Shell Calcium) 1.25 gm DAILY PO Last administered on 08/21/18at 11:28; Admin Dose 1.25 GM; Start 08/21/18 at 09:00 Gabapentin (Neurontin) 300 mg TID PO ; Start 08/21/18 at 13:00 Furosemide (Lasix) 20 mg DAILY IV Last administered on 08/21/18 11:18; Admin Dose 20 MG; Start 08/21/18 at 09:00 Fenofibrate (Tricor) 145 mg DAILY PO Last administered on 08/21/18 11:27; Admin Dose 145 MG; Start 08/21/18 at 09:00 Enoxaparin Sodium (Lovenox) 75 mg Q12H SC Last administered on 3/27/19at 11:18; Admin Dose 75 MG; Start 08/21/18 at 06:00 Insulin Aspart (Novolog Insulin Pen) NOVOLOG *MILD* ALGORITHM WITH MEALS BEDTIME SC ; Start 08/21/18 at 18:00 Miscellaneous Information 1 ea NOTE XX ; Start 08/21/18 at 15:00 Glucose (Glutose) 15 gm Q15M PRN PO DECREASED GLUCOSE; Start 08/21/18 at 15:00 Glucose (Glutose) 22.5 gm Q15M PRN PO DECREASED GLUCOSE; Start 08/21/18 at 15:00 Dextrose (D50w Syringe) 25 ml Q15M PRN IV DECREASED GLUCOSE; Start 08/21/18 at 15:00 Dextrose (D50w Syringe) 50 ml Q15M PRN IV DECREASED GLUCOSE; Start 08/21/18 at 15:00 Glucagon (Glucagen) 1 mg Q15M PRN IM DECREASED GLUCOSE; Start 08/21/18 at 15:00 Glucose (Glutose) 15 gm Q15M PRN BUCCAL DECREASED GLUCOSE; Start 08/21/18 at 15:00 Cefepime HCl 50 ml @ 100 mls/hr Q24H IVPB ; Start 08/21/18 at 15:30 Lucas Otto DO Aug 21, 2018 16:10
[2018-08-21] MEDS: GABAPENTIN 300 MG CAP PO SCH ×2 (17:09→21:00)
[2018-08-21] MEDS: CEFEPIME 1GM/50 ML (PMX) 50 ML IVPB SCH (17:09)
[2018-08-21] MEDS: ATORVASTATIN 20 MG TAB PO SCH (21:00)
[2018-08-21] MEDS ORDERED: PHENYLephrine 20MG IN 250 ML 250 ML IV SCH (21:30)
[2018-08-21] MEDS ORDERED: SOD CHLORIDE 0.9% 250 ML IV ONE (21:30)
[2018-08-21] MEDS: INSULIN ASPART [NOVOLOG] 3 ML PEN SC SCH ×2 (22:06→22:27)
[2018-08-21] MEDS: PHENYLephrine 20MG IN 250 ML 250 ML IV SCH (22:23)
[2018-08-22] VITALS (73 sets, daily range): BP systolic 72–133; BP diastolic 44–119; PULSE 79–118; RESP 18–34
[2018-08-22] MEDS: PHENYLephrine 20MG IN 250 ML 250 ML IV SCH ×2 (02:59→10:14)
[2018-08-22] MEDS: GABAPENTIN 300 MG CAP PO SCH ×3 (08:12→20:39)
[2018-08-22] MEDS: FUROSEMIDE 20 MG INJ IV SCH (08:12)
[2018-08-22] MEDS: ASPIRIN (EC) 81 MG TAB PO SCH (08:12)
[2018-08-22] MEDS: INSULIN ASPART [NOVOLOG] 3 ML PEN SC SCH ×4 (08:17→20:39)
[2018-08-22] MEDS: CALCIUM CARBONATE 1.25 GM TAB PO SCH (09:00)
[2018-08-22] MEDS: FENOFIBRATE 145 MG TAB PO SCH (09:00)
--- NOTE | 2018-08-22 10:16 | PN ---
Date/Time of Note Date/Time of Note DATE: 08/22/18 TIME: 10:16 Assessment/Plan VTE Prophylaxis Pharmacological prophylaxis: LMWH Lines/Catheters IV Catheter Type (from Nrs): port-a-cath Assessment/Plan Hospital Course Subjective : remains on pressor support, but is very "mobile" per nurses Objective : General: A&O x3, answering questions appropriately, obese, has lost all her hair, elderly, ill looking HEENT: NC/ AT. PERRL. EOM intact, + pallor Neck: supple CVS: S1, S2,tachycardia. no murmurs. no pain on chest wall palpation Lungs: CTA b/l. no wheezing or rhonchi, but quite diminished bilaterally Abd: soft, nontender, +BS Ext: moving all extremities, edema skin: no rashes CTA 08/21/18 2am : 1. Limited CT pulmonary angiogram due to breathing motion artifact. Negative for evidence of central PE in the main pulmonary arteries, lobar branches or first order segmental branches. Evaluation of subsegmental branches of the pulmonary arteries is not possible. 2. Interstitial pulmonary edema with interlobular septal thickening and right greater than left pleural effusions in keeping with volume overload or CHF. 3. Mild cardiomegaly. Reflux of contrast from the right heart into the intrahepatic IVC may be due to right heart dysfunction. 4. Focal bronchiolitis in the right middle lobe may be infectious or in flammatory. 5. 0.5 cm pulmonary nodule in the right middle lobe. In the absence of risk factors or a known primary neoplasm, no further imaging is required per 2017 Fleischner Society guidelines. In a high risk patient, follow-up low-dose chest CT at 12 months is optional. Alternatively, recommend correlation with previous imaging. assessment and plan: 72-year-old female undergoing breast cancer chemotherapy at outside facility who presents the emergency room with 2 days of shortness of breath managed as follws : 1. Resp failure, mild, acute , 2/2 #2, improved, now on 2L 2. CHF , acute, systolic and diastolic -BNP 7300 -echo showed Severe left ventricular systolic dysfunction with EF of 30 % and abnormal Diastolic Function, also with moderate mitral valve regurgitation. 3. NSTEMI vs demand: -levels trending down, trend to normal? 4. Hypotension / shock -got lasix, metoprolol and enalapril, likely med induced -labile BP versus septic shock, less likely cardiogenic -wean pressors 5. LRTI, Bronchiolitis -try to get sputum belinda cultures 6. DM A1c 8.0 7. Breast Ca on weekly chemo -oncologist is in [place] (raulito hamm?) 8. dyslipidemia 9. Hypochromic anemia : -likely 2/2 chronic disease 10. CM with EF 30% PLAN: -Continue diuresis with Lasix -Iron reserves are low, so will gently replenish with IV iron -Continue gentle diuresis with Lasix, cardiology managing -Continue empiric antibiotics until at least patient's blood pressure is stable and we have negative blood and urine cultures -Continue Lovenox at DVT prophylactic dose -Continue all other supportive care. -If we are able to wean the patient off pressor support, may be transferred to telemetry for continued management. -SSI and diabetic diet -Continue supportive care Further interventions per course Care time >40mins Result Diagram: 08/22/18 0434 08/22/18 0434 Results 24hrs Laboratory Tests Test 08/21/18 11:30 08/21/18 11:42 08/21/18 12:24 08/21/18 15:00 Bedside Glucose 142 131 Lab Scanned Report LAB D-Dimer 829.88 H D-Dimer Comment Test 08/21/18 21:07 08/21/18 22:03 08/22/18 04:34 08/22/18 08:15 Bedside Glucose 151 167 151 White Blood Count 9.0 # Red Blood Count 3.69 L Hemoglobin 10.6 L Hematocrit 34.1 L Mean Corpuscular 92.4 Volume Mean Corpuscular 28.7 L Hemoglobin Mean Corpuscular 31.1 L Hemoglobin Concent Red Cell 18.9 H Distribution Width Platelet Count 364 # Mean Platelet Volume 10.8 H Immature 1.700 H Granulocytes % Neutrophils % 66.6 Lymphocytes % 20.2 Monocytes % 9.5 Eosinophils % 1.6 Basophils % 0.4 Nucleated Red Blood 0.6 H Cells % Immature 0.150 H Granulocytes # Neutrophils # 6.0 Lymphocytes # 1.8 Monocytes # 0.9 Eosinophils # 0.1 Basophils # 0.0 Nucleated Red Blood 0.1 H Cells # Sodium Level 144 Potassium Level 4.5 Chloride Level 104 Carbon Dioxide Level 27 Anion Gap 13 Blood Urea Nitrogen 15 Creatinine 0.95 Est Glomerular Filtrat Rate mL/min Glucose Level 134 Calcium Level 9.1 Phosphorus Level 5.7 H Magnesium Level 2.1 Iron Level 49 Total Iron Binding 385 Capacity Percent Iron 13 L Saturation Exam/Review of Systems Exam Vitals Vital Signs Date Temp Pulse Resp B/P (MAP) Pulse Ox O2 O2 Flow FiO2 Time Delivery Rate 08/22/18 102 26 102/88 100 06:45 (93) 08/22/18 Nasal 06:00 Cannula 08/22/18 97.9 04:00 08/22/18 2.0 03:00 08/20/18 50 21:36 Intake and Output 08/21/18 08/21/18 08/22/18 1515:00 23:00 07:00 IntakeIntake Total 430 ml 316.875 ml OutputOutput Total 450 ml 300 ml BalanceBalance -20 ml 16.875 ml Results Results 24hrs Laboratory Tests Test 08/21/18 11:30 08/21/18 11:42 08/21/18 12:24 08/21/18 15:00 Bedside Glucose 142 131 Lab Scanned Report LAB D-Dimer 829.88 H D-Dimer Comment Test 08/21/18 21:07 08/21/18 22:03 08/22/18 04:34 08/22/18 08:15 Bedside Glucose 151 167 151 White Blood Count 9.0 # Red Blood Count 3.69 L Hemoglobin 10.6 L Hematocrit 34.1 L Mean Corpuscular 92.4 Volume Mean Corpuscular 28.7 L Hemoglobin Mean Corpuscular 31.1 L Hemoglobin Concent Red Cell 18.9 H Distribution Width Platelet Count 364 # Mean Platelet Volume 10.8 H Immature 1.700 H Granulocytes % Neutrophils % 66.6 Lymphocytes % 20.2 Monocytes % 9.5 Eosinophils % 1.6 Basophils % 0.4 Nucleated Red Blood 0.6 H Cells % Immature 0.150 H Granulocytes # Neutrophils # 6.0 Lymphocytes # 1.8 Monocytes # 0.9 Eosinophils # 0.1 Basophils # 0.0 Nucleated Red Blood 0.1 H Cells # Sodium Level 144 Potassium Level 4.5 Chloride Level 104 Carbon Dioxide Level 27 Anion Gap 13 Blood Urea Nitrogen 15 Creatinine 0.95 Est Glomerular Filtrat Rate mL/min Glucose Level 134 Calcium Level 9.1 Phosphorus Level 5.7 H Magnesium Level 2.1 Iron Level 49 Total Iron Binding 385 Capacity Percent Iron 13 L Saturation Medications Medication Current Medications IV Flush (NS 3 ml) 3 ml PER PROTOCOL IV ; Start 08/21/18 at 04:00 Ondansetron HCl (Zofran Inj) 4 mg Q6H PRN IV NAUSEA/VOMITING; Start 08/21/18 at 04:00 Nitroglycerin (Nitroglycerin (Sl Tab) 0.4 Mg) 1 tab Q5M PRN SL .CHEST PAIN; Start 08/21/18 at 04:00 Acetaminophen (Tylenol Tab) 650 mg Q6H PRN PO .PAIN 1-3 OR TEMP Last administered on 08/21/18at 15:33; Admin Dose 650 MG; Start 08/21/18 at 04:00 Albuterol/ Ipratropium (Duoneb) 3 ml Q2H RESP THERAPY PRN HHN SHORTNESS OF BREATH; Start 08/21/18 at 04:00 Aspirin (Halfprin) 81 mg DAILY PO Last administered on 08/22/18 08:12; Admin Dose 81 MG; Start 08/21/18 at 09:00 Atorvastatin Calcium (Lipitor) 20 mg DAILY@2100 PO Last administered on 08/21/18 21:00; Admin Dose 20 MG; Start 08/21/18 at 21:00 Calcium Carbonate (Oyster Shell Calcium) 1.25 gm DAILY PO Last administered on 08/21/18 11:28; Admin Dose 1.25 GM; Start 08/21/18 at 09:00 Gabapentin (Neurontin) 300 mg TID PO Last administered on 08/22/18 08:12; Admin Dose 300 MG; Start 08/21/18 at 13:00 Furosemide (Lasix) 20 mg DAILY IV Last administered on 08/22/18 08:12; Admin Dose 20 MG; Start 08/21/18 at 09:00 Fenofibrate (Tricor) 145 mg DAILY PO Last administered on 08/21/18 11:27; Admin Dose 145 MG; Start 08/21/18 at 09:00 Insulin Aspart (Novolog Insulin Pen) NOVOLOG *MILD* ALGORITHM WITH MEALS BEDTIME SC Last administered on 08/22/18 08:17; Admin Dose 1 UNIT; Start 08/21/18 at 18:00 Miscellaneous Information 1 ea NOTE XX ; Start 08/21/18 at 15:00 Glucose (Glutose) 15 gm Q15M PRN PO DECREASED GLUCOSE; Start 08/21/18 at 15:00 Glucose (Glutose) 22.5 gm Q15M PRN PO DECREASED GLUCOSE; Start 08/21/18 at 15:00 Dextrose (D50w Syringe) 25 ml Q15M PRN IV DECREASED GLUCOSE; Start 08/21/18 at 15:00 Dextrose (D50w Syringe) 50 ml Q15M PRN IV DECREASED GLUCOSE; Start 08/21/18 at 15:00 Glucagon (Glucagen) 1 mg Q15M PRN IM DECREASED GLUCOSE; Start 08/21/18 at 15:00 Glucose (Glutose) 15 gm Q15M PRN BUCCAL DECREASED GLUCOSE; Start 08/21/18 at 15:00 Cefepime HCl 50 ml @ 100 mls/hr Q24H IVPB Last administered on 08/21/18at 17:09; Admin Dose 100 MLS/HR; Start 08/21/18 at 15:30 Phenylephrine HCl 250 ml @ 75 mls/hr TITRATE IV Last administered on 08/22/18at 10:14; Admin Dose 15 MLS/HR; Start 08/21/18 at 21:32 ALEXYS VÁZQUEZ Aug 22, 2018 10:16
--- NOTE | 2018-08-22 10:43 | CONS ---
Assessment/Plan Assessment/Plan Assessment/Plan (Daily) Assessment and recommendations; 1. Patient admitted with shortness of breath likely due to underlying CHF possibly exacerbated by chemotherapy for breast cancer. 2. Other comorbidities include history of recently diagnosed right breast cancer, history of hypertension, and neuropathy. 3. Positive troponins, and STEMI. Significance is unclear at this point. Continue current supportive care. Consider stopping antibiotics 24 hours. Further recommendations per special education aide. I did have a detailed discussion with the patient's son at bedside and answered all his questions. Consultation Date/Type/Reason Admit Date/Time Date of Consultation: Aug 22, 2018 Type of Consult Pulmonary/critical care Pulmonary consult requested for evaluation of shortness of breath. Patient is a pleasant 72-year-old lady who came into the emergency room with a history of 2 days of shortness of breath without any associated chest pain, wheezing coughing or sputum production. Patient also denies having any fever or chills. Upon e valuation chest x-ray was done which is showing changes of mild pulmonary edema which was subsequently confirmed by CT of the chest. Also there was no pulmonary embolism seen on CT of the chest as well. Patient has been started on IV Lasix and also requiring low-dose pressor support. By the time I saw her, the patient is completely awake and alert and according to her she is markedly improved. Denies any recent fever, chills, any abdominal pain, nausea vomiting. Past medical history; 1. History of right breast cancer currently on chemotherapy. 2. History of hypertension. 3. Neuropathy. 4. Positive troponins during current admission, significance of that is unclear. Possibly demand ischemia. Medications; reviewed. Allergies; none. Family history; noncontributory. Patient does have a supportive family though. Social history; patient never smoked. Occupational history; noncontributory. Review of systems; denies any headache, seizures, visual changes. Shortness of breath is markedly improved. Denies any coughing, wheezing, sputum production or hemoptysis. Denies any abdominal pain, nausea vomiting. Any melena hematochezia, diarrhea or constipation. Any urinary symptoms. Any orthopnea. Any weight change. Any skin changes or any new arthritis symptoms. General exam; elderly female, awake alert, currently no distress. Laying comfortably in bed. Date/Time of Note DATE: 08/22/18 TIME: 10:38 Past Medical History Home Meds Reported Medications Insulin Glargine,Hum.rec.anlog (Basaglar Kwikpen U-100) 100 Unit/1 Ml Insuln.pen, 40 UNIT SQ QHS 08/21/18 Sitagliptin Phos/Metformin HCl (Janumet 50-1,000 mg Tablet) 1 Each Tablet, 1 TAB PO BID for 30 Days, #60 08/21/18 Metoprolol Succinate* (Toprol XL*) 25 Mg Tab.sr.24h, 25 MG PO DAILY for 30 Days, #30 08/21/18 Amitriptyline Hcl* (Amitriptyline Hcl*) 100 Mg Tablet, 100 MG PO DAILY for 30 Days, #30 08/21/18 Fenofibrate, Micronized (Fenofibrate) 134 Mg Capsule, 134 MG PO DAILY for 30 Days, #30 08/21/18 Atorvastatin Calcium (Atorvastatin Calcium) 20 Mg Tablet, 20 MG PO DAILY for 30 Days, #30 08/21/18 Losartan-Hydrochlorothiazide (Losartan-HCTZ) 50-12.5 Mg Tab, 1 TAB PO DAILY for 30 Days, #30 08/21/18 Gabapentin* (Gabapentin*) 300 Mg Capsule, 300 MG PO TID for 30 Days, #90 08/21/18 Aspirin* (Aspirin* EC) 81 Mg Tablet.dr, 81 MG PO DAILY for 30 Days, #30 08/21/18 Ergocalciferol (Vitamin D2) (VITAMIN D2) 50,000 Unit Capsule, 15422 MG PO Q7D for 28 Days, #4 08/21/18 Calcium Carbonate (Oysco-500) 500 Mg Tablet, 500 MG PO DAILY for 30 Days, #60 08/21/18 Enalapril Maleate* (Enalapril Maleate*) 5 Mg Tablet, 5 MG PO DAILY, TAB 11/25/15 Calcium Carbonate* (Os-Cody 500*) 1 Tab Tablet, 1 TAB PO BID, TAB 11/25/15 Alendronate Sodium* (Fosamax*) 70 Mg Tablet, 70 MG PO Q7D PRN for QFRI, #4 TAB 11/25/15 Discontinued Reported Medications Aspirin (Low Dose Aspirin) 81 Mg Tablet.dr, 81 MG PO DAILY, #30 TAB 11/25/15 Sitagliptin* (Januvia*) 50 Mg Tablet, 50 MG PO DAILY, #30 TAB 11/25/15 Discontinued Scripts Metformin* (Glucophage*) 1,000 Mg Tablet, 1000 MG PO BID, #60 TAB Prov:JANESSA MEDINA MD 11/25/15 Medications Current Medications IV Flush (NS 3 ml) 3 ml PER PROTOCOL IV ; Start 08/21/18 at 04:00 Ondansetron HCl (Zofran Inj) 4 mg Q6H PRN IV NAUSEA/VOMITING; Start 08/21/18 at 04:00 Nitroglycerin (Nitroglycerin (Sl Tab) 0.4 Mg) 1 tab Q5M PRN SL .CHEST PAIN; Start 08/21/18 at 04:00 Acetaminophen (Tylenol Tab) 650 mg Q6H PRN PO .PAIN 1-3 OR TEMP Last administered on 08/21/18 15:33; Admin Dose 650 MG; Start 08/21/18 at 04:00 Albuterol/ Ipratropium (Duoneb) 3 ml Q2H RESP THERAPY PRN HHN SHORTNESS OF BREATH; Start 08/21/18 at 04:00 Aspirin (Halfprin) 81 mg DAILY PO Last administered on 08/22/18 08:12; Admin Dose 81 MG; Start 08/21/18 at 09:00 Atorvastatin Calcium (Lipitor) 20 mg DAILY@2100 PO Last administered on 08/21/18 21:00; Admin Dose 20 MG; Start 08/21/18 at 21:00 Calcium Carbonate (Oyster Shell Calcium) 1.25 gm DAILY PO Last administered on 08/21/18 11:28; Admin Dose 1.25 GM; Start 08/21/18 at 09:00 Gabapentin (Neurontin) 300 mg TID PO Last administered on 08/22/18 08:12; Admin Dose 300 MG; Start 08/21/18 at 13:00 Furosemide (Lasix) 20 mg DAILY IV Last administered on 08/22/18 08:12; Admin Dose 20 MG; Start 08/21/18 at 09:00 Fenofibrate (Tricor) 145 mg DAILY PO Last administered on 08/21/18 11:27; Admin Dose 145 MG; Start 08/21/18 at 09:00 Insulin Aspart (Novolog Insulin Pen) NOVOLOG *MILD* ALGORITHM WITH MEALS BEDTIME SC Last administered on 08/22/18 08:17; Admin Dose 1 UNIT; Start 08/21/18 at 18:00 Miscellaneous Information 1 ea NOTE XX ; Start 08/21/18 at 15:00 Glucose (Glutose) 15 gm Q15M PRN PO DECREASED GLUCOSE; Start 08/21/18 at 15:00 Glucose (Glutose) 22.5 gm Q15M PRN PO DECREASED GLUCOSE; Start 08/21/18 at 15:00 Dextrose (D50w Syringe) 25 ml Q15M PRN IV DECREASED GLUCOSE; Start 08/21/18 at 15:00 Dextrose (D50w Syringe) 50 ml Q15M PRN IV DECREASED GLUCOSE; Start 08/21/18 at 15:00 Glucagon (Glucagen) 1 mg Q15M PRN IM DECREASED GLUCOSE; Start 08/21/18 at 15:00 Glucose (Glutose) 15 gm Q15M PRN BUCCAL DECREASED GLUCOSE; Start 08/21/18 at 15:00 Cefepime HCl 50 ml @ 100 mls/hr Q24H IVPB Last administered on 08/21/18at 17:09; Admin Dose 100 MLS/HR; Start 08/21/18 at 15:30 Phenylephrine HCl 250 ml @ 75 mls/hr TITRATE IV Last administered on 08/22/18at 10:14; Admin Dose 15 MLS/HR; Start 08/21/18 at 21:32 Allergies: Coded Allergies: No Known Allergy (Unverified , 08/21/18) Social History Smoking Status: Never smoker Exam/Review of Systems Exam Vitals Vital Signs Date Temp Pulse Resp B/P (MAP) Pulse Ox O2 O2 Flow FiO2 Time Delivery Rate 08/22/18 102 26 102/88 100 06:45 (93) 08/22/18 Nasal 06:00 Cannula 08/22/18 97.9 04:00 08/22/18 2.0 03:00 08/20/18 50 21:36 Intake and Output 08/21/18 08/21/18 08/22/18 1515:00 23:00 07:00 IntakeIntake Total 430 ml 316.875 ml OutputOutput Total 450 ml 300 ml BalanceBalance -20 ml 16.875 ml Exam HEENT exam; supple neck, no JVD. No lymphadenopathy. Midline trachea. No thyromegaly. Patient is alopecic. Is edentulous. No neck masses. Chest exam; diminished but clear breath sounds. S1-S2 audible, no murmurs. Regular rhythm. Abdomen exam; soft, no organomegaly. Bowel sounds audible. Extremity exam; no peripheral edema or clubbing. Pulses 1+. [employer] exam; no focal deficit. Results Result Diagram: 08/22/18 0434 08/22/18 0434 Results 24hrs Laboratory Tests Test 08/21/18 11:30 08/21/18 11:42 08/21/18 12:24 08/21/18 15:00 Bedside Glucose 142 131 Lab Scanned Report LAB D-Dimer 829.88 H D-Dimer Comment Test 08/21/18 21:07 08/21/18 22:03 08/22/18 04:34 08/22/18 08:15 Bedside Glucose 151 167 151 White Blood Count 9.0 # Red Blood Count 3.69 L Hemoglobin 10.6 L Hematocrit 34.1 L Mean Corpuscular 92.4 Volume Mean Corpuscular 28.7 L Hemoglobin Mean Corpuscular 31.1 L Hemoglobin Concent Red Cell 18.9 H Distribution Width Platelet Count 364 # Mean Platelet Volume 10.8 H Immature 1.700 H Granulocytes % Neutrophils % 66.6 Lymphocytes % 20.2 Monocytes % 9.5 Eosinophils % 1.6 Basophils % 0.4 Nucleated Red Blood 0.6 H Cells % Immature 0.150 H Granulocytes # Neutrophils # 6.0 Lymphocytes # 1.8 Monocytes # 0.9 Eosinophils # 0.1 Basophils # 0.0 Nucleated Red Blood 0.1 H Cells # Sodium Level 144 Potassium Level 4.5 Chloride Level 104 Carbon Dioxide Level 27 Anion Gap 13 Blood Urea Nitrogen 15 Creatinine 0.95 Est Glomerular Filtrat Rate mL/min Glucose Level 134 Calcium Level 9.1 Phosphorus Level 5.7 H Magnesium Level 2.1 Iron Level 49 Total Iron Binding 385 Capacity Percent Iron 13 L Saturation Medications Medication Current Medications IV Flush (NS 3 ml) 3 ml PER PROTOCOL IV ; Start 08/21/18 at 04:00 Ondansetron HCl (Zofran Inj) 4 mg Q6H PRN IV NAUSEA/VOMITING; Start 08/21/18 at 04:00 Nitroglycerin (Nitroglycerin (Sl Tab) 0.4 Mg) 1 tab Q5M PRN SL .CHEST PAIN; Start 08/21/18 at 04:00 Acetaminophen (Tylenol Tab) 650 mg Q6H PRN PO .PAIN 1-3 OR TEMP Last administered on 08/21/18at 15:33; Admin Dose 650 MG; Start 08/21/18 at 04:00 Albuterol/ Ipratropium (Duoneb) 3 ml Q2H RESP THERAPY PRN HHN SHORTNESS OF BREATH; Start 08/21/18 at 04:00 Aspirin (Halfprin) 81 mg DAILY PO Last administered on 08/22/18 08:12; Admin Dose 81 MG; Start 08/21/18 at 09:00 Atorvastatin Calcium (Lipitor) 20 mg DAILY@2100 PO Last administered on 08/21/18 21:00; Admin Dose 20 MG; Start 08/21/18 at 21:00 Calcium Carbonate (Oyster Shell Calcium) 1.25 gm DAILY PO Last administered on 08/21/18 11:28; Admin Dose 1.25 GM; Start 08/21/18 at 09:00 Gabapentin (Neurontin) 300 mg TID PO Last administered on 08/22/18 08:12; Admin Dose 300 MG; Start 08/21/18 at 13:00 Furosemide (Lasix) 20 mg DAILY IV Last administered on 08/22/18 08:12; Admin Dose 20 MG; Start 08/21/18 at 09:00 Fenofibrate (Tricor) 145 mg DAILY PO Last administered on 08/21/18 11:27; Admin Dose 145 MG; Start 08/21/18 at 09:00 Insulin Aspart (Novolog Insulin Pen) NOVOLOG *MILD* ALGORITHM WITH MEALS BEDTIME SC Last administered on 08/22/18 08:17; Admin Dose 1 UNIT; Start 08/21/18 at 18:00 Miscellaneous Information 1 ea NOTE XX ; Start 08/21/18 at 15:00 Glucose (Glutose) 15 gm Q15M PRN PO DECREASED GLUCOSE; Start 08/21/18 at 15:00 Glucose (Glutose) 22.5 gm Q15M PRN PO DECREASED GLUCOSE; Start 08/21/18 at 15:00 Dextrose (D50w Syringe) 25 ml Q15M PRN IV DECREASED GLUCOSE; Start 08/21/18 at 15:00 Dextrose (D50w Syringe) 50 ml Q15M PRN IV DECREASED GLUCOSE; Start 08/21/18 at 15:00 Glucagon (Glucagen) 1 mg Q15M PRN IM DECREASED GLUCOSE; Start 08/21/18 at 15:00 Glucose (Glutose) 15 gm Q15M PRN BUCCAL DECREASED GLUCOSE; Start 08/21/18 at 15:00 Cefepime HCl 50 ml @ 100 mls/hr Q24H IVPB Last administered on 08/21/18at 17:09; Admin Dose 100 MLS/HR; Start 08/21/18 at 15:30 Phenylephrine HCl 250 ml @ 75 mls/hr TITRATE IV Last administered on 08/22/18at 10:14; Admin Dose 15 MLS/HR; Start 08/21/18 at 21:32 BRIEN BUSBY Aug 22, 2018 10:43
[2018-08-22] MEDS ORDERED: SOD FERRIC GLUC COMPLX 125 MG in SOD CHLORIDE 0.9% 100 ML IVPB SCH (13:30)
[2018-08-22] MEDS: CEFEPIME 1GM/50 ML (PMX) 50 ML IVPB SCH (14:48)
--- NOTE | 2018-08-22 15:16 | CONS ---
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 Continue to titrate down as tolerated with maintaining SBP greater than 90 and/or map above 55 -Continue to hold antihypertensives -Antibiotics as per primary team -Troponins minimally elevated and trending down, this is likely secondary to decompensated congestive heart failure and overall clinical state -Continue aspirin and statin therapy -Continue telemetry monitoring. -Greater than 33 minutes of critical care time taken in the care of this patient Consultation Date/Type/Reason Admit Date/Time Aug 20, 2018 at 23:52 Initial Consult Date 08/22/18 Type of Consult Cardiology Date/Time of Note DATE: 08/22/18 TIME: 15:13 24 HR Interval Summary Free Text/Dictation Shortness of breath is better. No palpitations, chest pain Exam/Review of Systems Vital Signs Vitals Vital Signs Date Temp Pulse Resp B/P (MAP) Pulse Ox O2 O2 Flow FiO2 Time Delivery Rate 08/22/18 107 27 98/74 (82) 97 14:00 08/22/18 97.8 Nasal 2.0 12:00 Cannula 08/20/18 50 21:36 Intake and Output 08/21/18 08/21/18 08/22/18 1515:00 23:00 07:00 IntakeIntake Total 430 ml 326.250 ml OutputOutput Total 450 ml 300 ml BalanceBalance -20 ml 26.250 ml Exam Constitutional: alert, oriented (No apparent distress, speaking 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, on the phone) Head: normocephalic Respiratory: other (Coarse breath sounds bilaterally, minimal scattered crackles) Cardiovascular: regular rate and rhythm (S1-S2 heard), systolic murmur Gastrointestinal: soft, non-tender, bowel sounds Extremities: edema Labs Result Diagram: 08/22/18 0434 08/22/18 0434 Results 24hrs Laboratory Tests Test 08/21/18 21:07 08/21/18 22:03 08/22/18 04:34 08/22/18 08:15 Bedside Glucose 151 167 151 White Blood Count 9.0 # Red Blood Count 3.69 L Hemoglobin 10.6 L Hematocrit 34.1 L Mean Corpuscular 92.4 Volume Mean Corpuscular 28.7 L Hemoglobin Mean Corpuscular 31.1 L Hemoglobin Concent Red Cell 18.9 H Distribution Width Platelet Count 364 # Mean Platelet Volume 10.8 H Immature 1.700 H Granulocytes % Neutrophils % 66.6 Lymphocytes % 20.2 Monocytes % 9.5 Eosinophils % 1.6 Basophils % 0.4 Nucleated Red Blood 0.6 H Cells % Immature 0.150 H Granulocytes # Neutrophils # 6.0 Lymphocytes # 1.8 Monocytes # 0.9 Eosinophils # 0.1 Basophils # 0.0 Nucleated Red Blood 0.1 H Cells # Sodium Level 144 Potassium Level 4.5 Chloride Level 104 Carbon Dioxide Level 27 Anion Gap 13 Blood Urea Nitrogen 15 Creatinine 0.95 Est Glomerular Filtrat Rate mL/min Glucose Level 134 Calcium Level 9.1 Phosphorus Level 5.7 H Magnesium Level 2.1 Iron Level 49 Total Iron Binding 385 Capacity Percent Iron 13 L Saturation Medications Medications Current Medications IV Flush (NS 3 ml) 3 ml PER PROTOCOL IV ; Start 08/21/18 at 04:00 Ondansetron HCl (Zofran Inj) 4 mg Q6H PRN IV NAUSEA/VOMITING; Start 08/21/18 at 04:00 Nitroglycerin (Nitroglycerin (Sl Tab) 0.4 Mg) 1 tab Q5M PRN SL .CHEST PAIN; Start 08/21/18 at 04:00 Acetaminophen (Tylenol Tab) 650 mg Q6H PRN PO .PAIN 1-3 OR TEMP Last administered on 08/21/18at 15:33; Admin Dose 650 MG; Start 08/21/18 at 04:00 Albuterol/ Ipratropium (Duoneb) 3 ml Q2H RESP THERAPY PRN HHN SHORTNESS OF BREATH; Start 08/21/18 at 04:00 Aspirin (Halfprin) 81 mg DAILY PO Last administered on 08/22/18at 08:12; Admin Dose 81 MG; Start 08/21/18 at 09:00 Atorvastatin Calcium (Lipitor) 20 mg DAILY@2100 PO Last administered on 08/21/18at 21:00; Admin Dose 20 MG; Start 08/21/18 at 21:00 Calcium Carbonate (Oyster Shell Calcium) 1.25 gm DAILY PO Last administered on 08/21/18at 11:28; Admin Dose 1.25 GM; Start 08/21/18 at 09:00 Gabapentin (Neurontin) 300 mg TID PO Last administered on 08/22/18at 14:48; Ad min Dose 300 MG; Start 08/21/18 at 13:00 Furosemide (Lasix) 20 mg DAILY IV Last administered on 08/22/18at 08:12; Admin Dose 20 MG; Start 08/21/18 at 09:00 Fenofibrate (Tricor) 145 mg DAILY PO Last administered on 08/21/18at 11:27; Admin Dose 145 MG; Start 08/21/18 at 09:00 Insulin Aspart (Novolog Insulin Pen) NOVOLOG *MILD* ALGORITHM WITH MEALS BEDTIME SC Last administered on 08/22/18at 08:17; Admin Dose 1 UNIT; Start 08/21/18 at 18:00 Miscellaneous Information 1 ea NOTE XX ; Start 08/21/18 at 15:00 Glucose (Glutose) 15 gm Q15M PRN PO DECREASED GLUCOSE; Start 08/21/18 at 15:00 Glucose (Glutose) 22.5 gm Q15M PRN PO DECREASED GLUCOSE; Start 08/21/18 at 15:00 Dextrose (D50w Syringe) 25 ml Q15M PRN IV DECREASED GLUCOSE; Start 08/21/18 at 15:00 Dextrose (D50w Syringe) 50 ml Q15M PRN IV DECREASED GLUCOSE; Start 08/21/18 at 15:00 Glucagon (Glucagen) 1 mg Q15M PRN IM DECREASED GLUCOSE; Start 08/21/18 at 15:00 Glucose (Glutose) 15 gm Q15M PRN BUCCAL DECREASED GLUCOSE; Start 08/21/18 at 15:00 Cefepime HCl 50 ml @ 100 mls/hr Q24H IVPB Last administered on 08/22/18at 14:48; Admin Dose 100 MLS/HR; Start 08/21/18 at 15:30 Phenylephrine HCl 250 ml @ 75 mls/hr TITRATE IV Last administered on 08/22/18at 10:14; Admin Dose 15 MLS/HR; Start 08/21/18 at 21:32 Enoxaparin Sodium (Lovenox) 40 mg DAILY SC ; Start 08/23/18 at 09:00 Polysaccharide Iron Complex (Niferex-150) 1 cap BID PO ; Start 3/29/19 at 09:00 Lucas Otto DO Aug 22, 2018 15:16
[2018-08-22] MEDS: ATORVASTATIN 20 MG TAB PO SCH (20:39)
[2018-08-23] VITALS (31 sets, daily range): BP systolic 72–136; BP diastolic 48–106; PULSE 96–114; RESP 18–38
[2018-08-23] MEDS: INSULIN ASPART [NOVOLOG] 3 ML PEN SC SCH ×6 (07:42→20:15)
[2018-08-23] MEDS: CALCIUM CARBONATE 1.25 GM TAB PO SCH (08:17)
[2018-08-23] MEDS: ASPIRIN (EC) 81 MG TAB PO SCH (08:18)
[2018-08-23] MEDS: FUROSEMIDE 20 MG INJ IV SCH (08:18)
[2018-08-23] MEDS: FENOFIBRATE 145 MG TAB PO SCH (08:18)
[2018-08-23] MEDS: POLYSACCHARIDE IRON COMPLEX CAP PO SCH ×2 (08:21→20:13)
[2018-08-23] MEDS: GABAPENTIN 300 MG CAP PO SCH ×3 (08:21→20:13)
[2018-08-23] MEDS: ENOXAPARIN 40 MG/0.4 ML SYG SC SCH (08:28)
--- NOTE | 2018-08-23 09:13 | PN ---
Date/Time of Note Date/Time of Note DATE: 08/23/18 TIME: 09:09 Assessment/Plan VTE Prophylaxis Risk score (from Ns)>0 risk: 3 SCD applied (from Nsg): Yes Pharmacological prophylaxis: LMWH Lines/Catheters IV Catheter Type (from [facility]): portacath Urinary Cath still in place: No Assessment/Plan Hospital Course Subjective : off pressors, no new complaints, looks and feels better, tolerating diet, occasional wet cough Objective : General: A&O x3, answering questions appropriately, obese, has lost all her hair, elderly, ill looking HEENT: NC/ AT. PERRL. EOM intact, + pallor Neck: supple CVS: S1, S2,tachycardia. no murmurs. no pain on chest wall palpation Lungs: diminished bilaterally, coarse crackles R lung base? Abd: soft, nontender, +BS Ext: moving all extremities, edema skin: no rashes CTA 08/21/18 2am : 1. Limited CT pulmonary angiogram due to breathing motion artifact. Negative for evidence of central PE in the main pulmonary arteries, lobar branches or first order segmental branches. Evaluation of subsegmental branches of the pulmonary arteries is not possible. 2. Interstitial pulmonary edema with interlobular septal thickening and right greater than left pleural effusions in keeping with volume overload or CHF. 3. Mild cardiomegaly. Reflux of contrast from the right heart into the intrahepatic IVC may be due to right heart dysfunction. 4. Focal bronchiolitis in the right middle lobe may be infectious or inflammatory. 5. 0.5 cm pulmonary nodule in the right middle lobe. In the absence of risk factors or a known primary neoplasm, no further imaging is required per 2017 Fleischner Society guidelines. In a high risk patient, follow-up low-dose chest CT at 12 months is optional. Alternatively, recommend correlation with previous imaging. assessment and plan: 72-year-old female undergoing breast cancer chemotherapy at outside facility who presents the emergency room with 2 days of shortness of breath managed as follws : 1. Resp failure, mild, acute , 2/2 #2, improved, now on 2L 2. CHF , acute, systolic and diastolic -BNP 7300 -echo showed Severe left ventricular systolic dysfunction with EF of 30 % and abnormal Diastolic Function, also with moderate mitral valve regurgitation. 3. NSTEMI vs demand: -levels trending down, trend to normal? 4. Hypotension / shock -got lasix, metoprolol and enalapril, likely med induced -labile BP versus septic shock, less likely cardiogenic -wean pressors 5. LRTI, Bronchiolitis -try to get sputum for cultures 6. DM A1c 8.0 7. Breast Ca on weekly chemo -oncologist is in [place] (raulito hamm?) 8. dyslipidemia 9. Hypochromic anemia : -likely 2/2 chronic disease and mild iron deficiency -s/p IV iron x 1 -continue PO bid 10. CM with EF 30% 11. 0.5 cm pulmonary nodule in the right middle lobe. follow-up low-dose chest CT at 12 months PLAN: -Continue diuresis with Lasix, CXR today showing increased congestion -Blood pressure limiting more aggressive diuresis, encourage ambulation -Continue empiric antibiotics, sputum cultures ordered as well -Continue Lovenox at DVT prophylactic dose -Continue all other supportive care. -tele transfer today -SSI and diabetic diet, start low dose lantus and premeal novolog -Continue supportive care Further interventions per course Care time >40mins Result Diagram: 08/23/18 0434 08/23/18 0434 Results 24hrs Laboratory Tests Test 08/22/18 16:22 08/22/18 16:59 08/22/18 20:35 08/23/18 04:34 Bedside Glucose 313 H 204 266 H White Blood Count 5.9 # Red Blood Count 3.43 L Hemoglobin 9.9 L Hematocrit 31.0 L Mean Corpuscular 90.4 Volume Mean Corpuscular 28.9 L Hemoglobin Mean Corpuscular 31.9 L Hemoglobin Concent Red Cell 18.8 H Distribution Width Platelet Count 228 # Mean Platelet Volume 11.1 H Immature 1.200 H Granulocytes % Neutrophils % 63.3 Lymphocytes % 21.9 Monocytes % 11.4 H Eosinophils % 1.9 Basophils % 0.3 Nucleated Red Blood 0.7 H Cells % Immature 0.070 H Granulocytes # Neutrophils # 3.7 Lymphocytes # 1.3 Monocytes # 0.7 Eosinophils # 0.1 Basophils # 0.0 Nucleated Red Blood 0.0 Cells # Sodium Level 141 Potassium Level 4.0 Chloride Level 104 Carbon Dioxide Level 27 Anion Gap 10 Blood Urea Nitrogen 15 Creatinine 0.85 Est Glomerular Filtrat Rate mL/min Glucose Level 154 Calcium Level 8.6 Magnesium Level 2.2 Test 08/23/18 07:28 Bedside Glucose 160 Exam/Review of Systems Exam Vitals Vital Signs Date Temp Pulse Resp B/P (MAP) Pulse Ox O2 O2 Flow FiO2 Time Delivery Rate 08/23/18 98 08:00 08/23/18 20 96/62 (73) 98 06:30 08/23/18 Nasal 06:00 Cannula 08/23/18 97.8 04:00 08/22/18 2.0 21:00 08/20/18 50 21:36 Intake and Output 08/22/18 08/22/18 08/23/18 1515:00 23:00 07:00 IntakeIntake Total 254.375 ml 300 ml 0 ml OutputOutput Total 500 ml BalanceBalance 254.375 ml -200 ml 0 ml Results Results 24hrs Laboratory Tests Test 08/22/18 16:22 08/22/18 16:59 08/22/18 20:35 08/23/18 04:34 Bedside Glucose 313 H 204 266 H White Blood Count 5.9 # Red Blood Count 3.43 L Hemoglobin 9.9 L Hematocrit 31.0 L Mean Corpuscular 90.4 Volume Mean Corpuscular 28.9 L Hemoglobin Mean Corpuscular 31.9 L Hemoglobin Concent Red Cell 18.8 H Distribution Width Platelet Count 228 # Mean Platelet Volume 11.1 H Immature 1.200 H Granulocytes % Neutrophils % 63.3 Lymphocytes % 21.9 Monocytes % 11.4 H Eosinophils % 1.9 Basophils % 0.3 Nucleated Red Blood 0.7 H Cells % Immature 0.070 H Granulocytes # Neutrophils # 3.7 Lymphocytes # 1.3 Monocytes # 0.7 Eosinophils # 0.1 Basophils # 0.0 Nucleated Red Blood 0.0 Cells # Sodium Level 141 Potassium Level 4.0 Chloride Level 104 Carbon Dioxide Level 27 Anion Gap 10 Blood Urea Nitrogen 15 Creatinine 0.85 Est Glomerular Filtrat Rate mL/min Glucose Level 154 Calcium Level 8.6 Magnesium Level 2.2 Test 08/23/18 07:28 Bedside Glucose 160 Medications Medication Current Medications IV Flush (NS 3 ml) 3 ml PER PROTOCOL IV ; Start 08/21/18 at 04:00 Ondansetron HCl (Zofran Inj) 4 mg Q6H PRN IV NAUSEA/VOMITING; Start 08/21/18 at 04:00 Nitroglycerin (Nitroglycerin (Sl Tab) 0.4 Mg) 1 tab Q5M PRN SL .CHEST PAIN; Start 08/21/18 at 04:00 Acetaminophen (Tylenol Tab) 650 mg Q6H PRN PO .PAIN 1-3 OR TEMP Last administered on 08/21/18 15:33; Admin Dose 650 MG; Start 08/21/18 at 04:00 Albuterol/ Ipratropium (Duoneb) 3 ml Q2H RESP THERAPY PRN HHN SHORTNESS OF BREATH; Start 08/21/18 at 04:00 Aspirin (Halfprin) 81 mg DAILY PO Last administered on 08/23/18 08:18; Admin Dose 81 MG; Start 08/21/18 at 09:00 Atorvastatin Calcium (Lipitor) 20 mg DAILY@2100 PO Last administered on 08/22/18 20:39; Admin Dose 20 MG; Start 08/21/18 at 21:00 Calcium Carbonate (Oyster Shell Calcium) 1.25 gm DAILY PO Last administered on 08/23/18 08:17; Admin Dose 1.25 GM; Start 08/21/18 at 09:00 Gabapentin (Neurontin) 300 mg TID PO Last administered on 08/23/18 08:21; Admin Dose 300 MG; Start 08/21/18 at 13:00 Furosemide (Lasix) 20 mg DAILY IV Last administered on 08/23/18 08:18; Admin Dose 20 MG; Start 08/21/18 at 09:00 Fenofibrate (Tricor) 145 mg DAILY PO Last administered on 08/23/18 08:18; Admin Dose 145 MG; Start 08/21/18 at 09:00 Insulin Aspart (Novolog Insulin Pen) NOVOLOG *MILD* ALGORITHM WITH MEALS BEDTIME SC Last administered on 08/23/18 07:42; Admin Dose 1 UNIT; Start 08/21/18 at 18:00 Miscellaneous Information 1 ea NOTE XX ; Start 08/21/18 at 15:00 Glucose (Glutose) 15 gm Q15M PRN PO DECREASED GLUCOSE; Start 08/21/18 at 15:00 Glucose (Glutose) 22.5 gm Q15M PRN PO DECREASED GLUCOSE; Start 08/21/18 at 15:00 Dextrose (D50w Syringe) 25 ml Q15M PRN IV DECREASED GLUCOSE; Start 08/21/18 at 15:00 Dextrose (D50w Syringe) 50 ml Q15M PRN IV DECREASED GLUCOSE; Start 08/21/18 at 15:00 Glucagon (Glucagen) 1 mg Q15M PRN IM DECREASED GLUCOSE; Start 08/21/18 at 15:00 Glucose (Glutose) 15 gm Q15M PRN BUCCAL DECREASED GLUCOSE; Start 08/21/18 at 15:00 Cefepime HCl 50 ml @ 100 mls/hr Q24H IVPB Last administered on 08/22/18at 14:48; Admin Dose 100 MLS/HR; Start 08/21/18 at 15:30 Phenylephrine HCl 250 ml @ 75 mls/hr TITRATE IV Last administered on 08/22/18at 10:14; Admin Dose 15 MLS/HR; Start 08/21/18 at 21:32 Enoxaparin Sodium (Lovenox) 40 mg DAILY SC Last administered on 08/23/18at 08:28; Admin Dose 40 MG; Start 08/23/18 at 09:00 Polysaccharide Iron Complex (Niferex-150) 1 cap BID PO Last administered on 08/23/18at 08:21; Admin Dose 1 CAP; Start 08/23/18 at 09:00 ALEXYS VÁZQUEZ Aug 23, 2018 09:13
--- NOTE | 2018-08-23 09:44 | CONS ---
Assessment/Plan Assessment/Plan Assessment/Plan (Daily) Assessment and recommendations; 1. 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 Chest x-ray from today showing increasing pulmonary edema mostly involving right lung. 2. Difficult to rule out some element of superimposed pneumonia as well. Patient however, currently on appropriate antimicrobial regimen. 3. Recently diagnosed breast cancer, patient received chemotherapy about a week ago. 4. Hypotension with interval resolution. Patient off pressor support. 5. Interval resolution of encephalopathy as well. 6. History of diabetes. 7. Anemia. Continue current supportive care. Increase Lasix to 40 mg IV daily from 20 mg IV daily dosing. Obtain follow-up chest x-ray in 48 hours. Patient also can be transferred to medical floor. Consultation Date/Type/Reason Admit Date/Time Aug 20, 2018 at 23:52 Initial Consult Date 08/22/18 Type of Consult Pulmonary/critical care Pulmonary consult requested for evaluation of shortness of breath. Patient is a pleasant 72-year-old lady who came into the emergency room with a history of 2 days of shortness of breath without any associated chest pain, wheezing coughing or sputum production. Patient also denies having any fever or chills. Upon evaluation chest x-ray was done which is showing changes of mild pulmonary edema which was subsequently confirmed by CT of the chest. Also there was no p ulmonary embolism seen on CT of the chest as well. Patient has been started on IV Lasix and also requiring low-dose pressor support. By the time I saw her, the patient is completely awake and alert and according to her she is markedly improved. Denies any recent fever, chills, any abdominal pain, nausea vomiting. Past medical history; 1. History of right breast cancer currently on chemotherapy. 2. History of hypertension. 3. Neuropathy. 4. Positive troponins during current admission, significance of that is unclear. Possibly demand ischemia. Medications; reviewed. Allergies; none. Family history; noncontributory. Patient does have a supportive family though. Social history; patient never smoked. Occupational history; noncontributory. Review of systems; denies any headache, seizures, visual changes. Shortness of breath is markedly improved. Denies any coughing, wheezing, sputum production or hemoptysis. Denies any abdominal pain, nausea vomiting. Any melena hematochezia, diarrhea or constipation. Any urinary symptoms. Any orthopnea. Any weight change. Any skin changes or any new arthritis symptoms. General exam; elderly female, awake alert, currently no distress. Laying comfortably in bed. Date/Time of Note DATE: 08/23/18 TIME: 09:40 24 HR Interval Summary Free Text/Dictation Patient's condition is markedly improved. Patient has improved hemodynamically and is off pressor support. Denies any shortness breath, coughing, chest pain, fever, chills. General exam; elderly female, awake and alert. Currently in no distress. Exam/Review of Systems Exam Vitals Vital Signs Date Temp Pulse Resp B/P (MAP) Pulse Ox O2 O2 Flow FiO2 Time Delivery Rate 08/23/18 104 24 98/54 (69) 90 09:00 08/23/18 98.2 08:00 08/23/18 Nasal 06:00 Cannula 08/22/18 2.0 21:00 08/20/18 50 21:36 Intake and Output 08/22/18 08/22/18 08/23/18 1515:00 23:00 07:00 IntakeIntake Total 254.375 ml 300 ml 0 ml OutputOutput Total 500 ml BalanceBalance 254.375 ml -200 ml 0 ml Exam HEENT exam; supple neck, positive JVD. No lymphadenopathy. Midline trachea. No thyromegaly. Pharynx is clear. Patient has fair dentition. Patient is alopecic. No neck masses. Chest exam; clear to auscultation. S1-S2 audible, no murmurs. Regular rhythm. Abdomen exam; soft, mildly protuberant. Nontender. No organomegaly. Bowel sounds audible. Extremity exam; no edema or clubbing. CHOKER HOOKER exam; no focal deficit. Results Result Diagram: 08/23/18 0434 08/23/18 0434 Results 24hrs Laboratory Tests Test 08/22/18 16:22 08/22/18 16:59 08/22/18 20:35 08/23/18 04:34 Bedside Glucose 313 H 204 266 H White Blood Count 5.9 # Red Blood Count 3.43 L Hemoglobin 9.9 L Hematocrit 31.0 L Mean Corpuscular 90.4 Volume Mean Corpuscular 28.9 L Hemoglobin Mean Corpuscular 31.9 L Hemoglobin Concent Red Cell 18.8 H Distribution Width Platelet Count 228 # Mean Platelet Volume 11.1 H Immature 1.200 H Granulocytes % Neutrophils % 63.3 Lymphocytes % 21.9 Monocytes % 11.4 H Eosinophils % 1.9 Basophils % 0.3 Nucleated Red Blood 0.7 H Cells % Immature 0.070 H Granulocytes # Neutrophils # 3.7 Lymphocytes # 1.3 Monocytes # 0.7 Eosinophils # 0.1 Basophils # 0.0 Nucleated Red Blood 0.0 Cells # Sodium Level 141 Potassium Level 4.0 Chloride Level 104 Carbon Dioxide Level 27 Anion Gap 10 Blood Urea Nitrogen 15 Creatinine 0.85 Est Glomerular Filtrat Rate mL/min Glucose Level 154 Calcium Level 8.6 Magnesium Level 2.2 Test 08/23/18 07:28 Bedside Glucose 160 Medications Medication Current Medications IV Flush (NS 3 ml) 3 ml PER PROTOCOL IV ; Start 08/21/18 at 04:00 Ondansetron HCl (Zofran Inj) 4 mg Q6H PRN IV NAUSEA/VOMITING; Start 08/21/18 at 04:00 Nitroglycerin (Nitroglycerin (Sl Tab) 0.4 Mg) 1 tab Q5M PRN SL .CHEST PAIN; Start 08/21/18 at 04:00 Acetaminophen (Tylenol Tab) 650 mg Q6H PRN PO .PAIN 1-3 OR TEMP Last administered on 08/21/18at 15:33; Admin Dose 650 MG; Start 08/21/18 at 04:00 Albuterol/ Ipratropium (Duoneb) 3 ml Q2H RESP THERAPY PRN HHN SHORTNESS OF BREATH; Start 08/21/18 at 04:00 Aspirin (Halfprin) 81 mg DAILY PO Last administered on 08/23/18 08:18; Admin Dose 81 MG; Start 08/21/18 at 09:00 Atorvastatin Calcium (Lipitor) 20 mg DAILY@2100 PO Last administered on 08/22/18 20:39; Admin Dose 20 MG; Start 08/21/18 at 21:00 Calcium Carbonate (Oyster Shell Calcium) 1.25 gm DAILY PO Last administered on 08/23/18 08:17; Admin Dose 1.25 GM; Start 08/21/18 at 09:00 Gabapentin (Neurontin) 300 mg TID PO Last administered on 08/23/18 08:21; Admin Dose 300 MG; Start 08/21/18 at 13:00 Fenofibrate (Tricor) 145 mg DAILY PO Last administered on 08/23/18at 08:18; Admin Dose 145 MG; Start 08/21/18 at 09:00 Insulin Aspart (Novolog Insulin Pen) NOVOLOG *MILD* ALGORITHM WITH MEALS BEDTIME SC Last administered on 08/23/18at 07:42; Admin Dose 1 UNIT; Start 08/21/18 at 18:00 Miscellaneous Information 1 ea NOTE XX ; Start 08/21/18 at 15:00 Glucose (Glutose) 15 gm Q15M PRN PO DECREASED GLUCOSE; Start 08/21/18 at 15:00 Glucose (Glutose) 22.5 gm Q15M PRN PO DECREASED GLUCOSE; Start 08/21/18 at 15:00 Dextrose (D50w Syringe) 25 ml Q15M PRN IV DECREASED GLUCOSE; Start 08/21/18 at 15:00 Dextrose (D50w Syringe) 50 ml Q15M PRN IV DECREASED GLUCOSE; Start 08/21/18 at 15:00 Glucagon (Glucagen) 1 mg Q15M PRN IM DECREASED GLUCOSE; Start 08/21/18 at 15:00 Glucose (Glutose) 15 gm Q15M PRN BUCCAL DECREASED GLUCOSE; Start 08/21/18 at 15:00 Cefepime HCl 50 ml @ 100 mls/hr Q24H IVPB Last administered on 08/22/18at 14:48; Admin Dose 100 MLS/HR; Start 08/21/18 at 15:30 Enoxaparin Sodium (Lovenox) 40 mg DAILY SC Last administered on 08/23/18at 08:28; Admin Dose 40 MG; Start 08/23/18 at 09:00 Polysaccharide Iron Complex (Niferex-150) 1 cap BID PO Last administered on 08/23/18at 08:21; Admin Dose 1 CAP; Start 08/23/18 at 09:00 Insulin Glargine (Lantus) 11 units DAILY@0800 SC ; Start 08/24/18 at 08:00 Insulin Aspart (Novolog Insulin Pen) 4 unit WITH MEALS SC ; Start 08/23/18 at 11:30 BRIEN BUSBY Aug 23, 2018 09:44
[2018-08-23] MEDS ORDERED: FUROSEMIDE 40 MG INJ IV SCH (10:00)
--- NOTE | 2018-08-23 11:21 | CONS ---
Assessment/Plan Cardiology NYHA: II Heart Failure Type: Acute Heart Failure Type: Systolic Assessment/Plan Hospital Course (Demo Recall) Acute decompensated systolic congestive heart failure Labile blood pressure with hypotension off IV pressor Cardia myopathy with left ventricular ejection fraction 30% Breast cancer status post chemotherapy History of hypertension -Discussion with family, patient did have an echocardiogram performed prior to chemotherapy and they were told the results were normal. They stated they have the re-port at home, I did ask him to bring it in. She has been on chemotherapy for approximately 3 months. -Patient has been titrated off IV pressor -Would start gentle diuretics as renal function blood pressure permits -Continue to hold antihypertensives -Antibiotics as per primary team -Troponins minimally elevated and trending down, this is likely secondary to decompensated congestive heart failure and overall clinical state -Continue aspirin and statin therapy -Continue telemetry monitoring. Consultation Date/Type/Reason Admit Date/Time Aug 20, 2018 at 23:52 Initial Consult Date 08/22/18 Type of Consult Cardiology Date/Time of Note DATE: 08/23/18 TIME: 11:19 24 HR Interval Summary Free Text/Dictation With increased shortness of breath today. Denies chest pain or palpitations Exam/Review of Systems Vital Signs Vitals Vital Signs Date Temp Pulse Resp B/P (MAP) Pulse Ox O2 O2 Flow FiO2 Time Delivery Rate 08/23/18 104 24 98/54 (69) 90 09:00 08/23/18 98.2 08:00 08/23/18 Nasal 2.0 08:00 Cannula 08/20/18 50 21:36 Intake and Output 08/22/18 08/22/18 08/23/18 1515:00 23:00 07:00 IntakeIntake Total 254.375 ml 300 ml 0 ml OutputOutput Total 500 ml BalanceBalance 254.375 ml -200 ml 0 ml Exam Constitutional: alert, oriented Head: normocephalic Respiratory: other (Coarse breath sounds bilaterally, scattered crackles) Cardiovascular: regular rate and rhythm (S1-S2 heard) Gastrointestinal: soft, non-tender, bowel sounds Extremities: edema Labs Result Diagram: 08/23/18 0434 08/23/18 0434 Results 24hrs Laboratory Tests Test 08/22/18 16:22 08/22/18 16:59 08/22/18 20:35 08/23/18 04:34 Bedside Glucose 313 H 204 266 H White Blood Count 5.9 # Red Blood Count 3.43 L Hemoglobin 9.9 L Hematocrit 31.0 L Mean Corpuscular 90.4 Volume Mean Corpuscular 28.9 L Hemoglobin Mean Corpuscular 31.9 L Hemoglobin Concent Red Cell 18.8 H Distribution Width Platelet Count 228 # Mean Platelet Volume 11.1 H Immature 1.200 H Granulocytes % Neutrophils % 63.3 Lymphocytes % 21.9 Monocytes % 11.4 H Eosinophils % 1.9 Basophils % 0.3 Nucleated Red Blood 0.7 H Cells % Immature 0.070 H Granulocytes # Neutrophils # 3.7 Lymphocytes # 1.3 Monocytes # 0.7 Eosinophils # 0.1 Basophils # 0.0 Nucleated Red Blood 0.0 Cells # Sodium Level 141 Potassium Level 4.0 Chloride Level 104 Carbon Dioxide Level 27 Anion Gap 10 Blood Urea Nitrogen 15 Creatinine 0.85 Est Glomerular Filtrat Rate mL/min Glucose Level 154 Calcium Level 8.6 Magnesium Level 2.2 Test 08/23/18 07:28 Bedside Glucose 160 Medications Medications Current Medications IV Flush (NS 3 ml) 3 ml PER PROTOCOL IV ; Start 08/21/18 at 04:00 Ondansetron HCl (Zofran Inj) 4 mg Q6H PRN IV NAUSEA/VOMITING; Start 08/21/18 at 04:00 Nitroglycerin (Nitroglycerin (Sl Tab) 0.4 Mg) 1 tab Q5M PRN SL .CHEST PAIN; Start 08/21/18 at 04:00 Acetaminophen (Tylenol Tab) 650 mg Q6H PRN PO .PAIN 1-3 OR TEMP Last administered on 08/21/18at 15:33; Admin Dose 650 MG; Start 08/21/18 at 04:00 Albuterol/ Ipratropium (Duoneb) 3 ml Q2H RESP THERAPY PRN HHN SHORTNESS OF BREATH; Start 08/21/18 at 04:00 Aspirin (Halfprin) 81 mg DAILY PO Last administered on 08/23/18at 08:18; Admin Dose 81 MG; Start 08/21/18 at 09:00 Atorvastatin Calcium (Lipitor) 20 mg DAILY@2100 PO Last administered on 08/22/18at 20:39; Admin Dose 20 MG; Start 08/21/18 at 21:00 Calcium Carbonate (Oyster Shell Calcium) 1.25 gm DAILY PO Last administered on 08/23/18at 08:17; Admin Dose 1.25 GM; Start 08/21/18 at 09:00 Gabapentin (Neurontin) 300 mg TID PO Last administered on 08/23/18at 08:21; Admin Dose 300 MG; Start 08/21/18 at 13:00 Fenofibrate (Tricor) 145 mg DAILY PO Last administered on 08/23/18at 08:18; Admin Dose 145 MG; Start 08/21/18 at 09:00 Insulin Aspart (Novolog Insulin Pen) NOVOLOG *MILD* ALGORITHM WITH MEALS BEDTIME SC Last administered on 08/23/18at 07:42; Admin Dose 1 UNIT; Start 08/21/18 at 18:00 Miscellaneous Information 1 ea NOTE XX ; Start 08/21/18 at 15:00 Glucose (Glutose) 15 gm Q15M PRN PO DECREASED GLUCOSE; Start 08/21/18 at 15:00 Glucose (Glutose) 22.5 gm Q15M PRN PO DECREASED GLUCOSE; Start 08/21/18 at 15:00 Dextrose (D50w Syringe) 25 ml Q15M PRN IV DECREASED GLUCOSE; Start 08/21/18 at 15:00 Dextrose (D50w Syringe) 50 ml Q15M PRN IV DECREASED GLUCOSE; Start 08/21/18 at 15:00 Glucagon (Glucagen) 1 mg Q15M PRN IM DECREASED GLUCOSE; Start 08/21/18 at 15:00 Glucose (Glutose) 15 gm Q15M PRN BUCCAL DECREASED GLUCOSE; Start 08/21/18 at 15:00 Cefepime HCl 50 ml @ 100 mls/hr Q24H IVPB Last administered on 08/22/18at 14:48; Admin Dose 100 MLS/HR; Start 08/21/18 at 15:30 Enoxaparin Sodium (Lovenox) 40 mg DAILY SC Last administered on 08/23/18at 08:28; Admin Dose 40 MG; Start 08/23/18 at 09:00 Polysaccharide Iron Complex (Niferex-150) 1 cap BID PO Last administered on 08/23/18at 08:21; Admin Dose 1 CAP; Start 08/23/18 at 09:00 Insulin Glargine (Lantus) 11 units DAILY@0800 SC ; Start 08/24/18 at 08:00 Insulin Aspart (Novolog Insulin Pen) 4 unit WITH MEALS SC ; Start 08/23/18 at 11:30 Furosemide (Lasix) 40 mg DAILY IV Last administered on 08/23/18at 09:50; Admin Dose 40 MG; Start 08/23/18 at 10:00 Lucas Otto DO Aug 23, 2018 11:21
[2018-08-23] MEDS: CEFEPIME 1GM/50 ML (PMX) 50 ML IVPB SCH (14:31)
[2018-08-23] MEDS: FUROSEMIDE 40 MG INJ IV SCH (17:23)
[2018-08-23] MEDS: ATORVASTATIN 20 MG TAB PO SCH (20:13)
[2018-08-23] MEDS ORDERED: INSULIN ASPART [NOVOLOG] 3 ML PEN SC ONE (20:30)
[2018-08-23] MEDS: INSULIN GLARGINE [LANTus] (100 UNITS/ML) SYG SC SCH (21:46)
[2018-08-24] VITALS (12 sets, daily range): BP systolic 98–121; BP diastolic 55–79; PULSE 100–120; RESP 18–20
[2018-08-24] MEDS: FUROSEMIDE 40 MG INJ IV SCH ×2 (06:31→17:23)
[2018-08-24] MEDS ORDERED: INSULIN GLARGINE [LANTus] (100 UNITS/ML) SYG SC SCH (08:00)
[2018-08-24] MEDS: GABAPENTIN 300 MG CAP PO SCH ×3 (09:36→20:43)
[2018-08-24] MEDS: CALCIUM CARBONATE 1.25 GM TAB PO SCH (09:36)
[2018-08-24] MEDS: ASPIRIN (EC) 81 MG TAB PO SCH (09:36)
[2018-08-24] MEDS: FENOFIBRATE 145 MG TAB PO SCH (09:36)
[2018-08-24] MEDS: ENOXAPARIN 40 MG/0.4 ML SYG SC SCH (09:38)
[2018-08-24] MEDS: INSULIN ASPART [NOVOLOG] 3 ML PEN SC SCH ×7 (09:40→20:53)
--- NOTE | 2018-08-24 09:46 | CONS ---
Assessment/Plan Assessment/Plan Assessment/Plan (Daily) Assessment recommendations; 1. 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 2. Breast cancer, status post chemotherapy about 8 days ago. 3. Difficult to rule out some element of pneumonia involving right lung. Patient however currently on appropriate antimicrobial regimen. 4. History of diabetes. 5. Peripheral neuropathy. Continue current supportive care. Obtain follow-up chest x-ray 24 hours. Consultation Date/Type/Reason Admit Date/Time Aug 20, 2018 at 23:52 Initial Consult Date 08/22/18 Type of Consult Pulmonary/critical care Pulmonary consult requested for evaluation of shortness of breath. Patient is a pleasant 72-year-old lady who came into the emergency room with a history of 2 days of shortness of breath without any associated chest pain, wheezing coughing or sputum production. Patient also denies having any fever or chills. Upon evaluation chest x-ray was done which is showing changes of mild pulmonary edema which was subsequently confirmed by CT of the chest. Also there was no pulmonary embolism seen on CT of the chest as well. Patient has been started on IV Lasix and also requiring low-dose pressor support. By the time I saw her, the patient is completely awake and alert and according to her she is markedly improved. Denies any recent fever, chills, any abdominal pain, nausea vomiting. Past medical history; 1. History of right breast cancer currently on chemotherapy. 2. History of hypertension. 3. Neuropathy. 4. Positive troponins during current admission, significance of that is unclear. Possibly demand ischemia. Medications; reviewed. Allergies; none. Family history; noncontributory. Patient does have a supportive family though. Social history; patient never smoked. Occupational history; noncontributory. Review of systems; denies any headache, seizures, visual changes. Shortness of breath is markedly improved. Denies any coughing, wheezing, sputum production or hemoptysis. Denies any abdominal pain, nausea vomiting. Any melena hematochezia, diarrhea or constipation. Any urinary symptoms. Any orthopnea. Any weight change. Any skin changes or any new arthritis symptoms. General exam; elderly female, awake alert, currently no distress. Laying comfortably in bed. Date/Time of Note DATE: 08/24/18 TIME: 09:44 24 HR Interval Summary Free Text/Dictation Patient's condition is stable. Has been transferred out of ICU to medical floor. Reports significant decrease in shortness of breath. Denies any coughing, wheezing, sputum production or chest pain. General exam; elderly female, awake and alert. Currently in no distress. Exam/Review of Systems Exam Vitals Vital Signs Date Temp Pulse Resp B/P (MAP) Pulse Ox O2 O2 Flow FiO2 Time Delivery Rate 08/24/18 97.5 109 20 121/69 94 07:33 (86) 08/24/18 2.0 05:37 08/23/18 Nasal 22:38 Cannula 08/20/18 50 21:36 Intake and Output 08/23/18 08/23/18 08/24/18 1515:00 23:00 07:00 IntakeIntake Total 0 ml 50 ml 100 ml OutputOutput Total 850 ml 750 ml 450 ml BalanceBalance -850 ml -700 ml -350 ml Exam H EENT exam; supple neck, positive JVD. No lymphadenopathy. Midline trachea. No thyromegaly. Patient has fair dentition. Patient is alopecic. Pharynx is clear. Chest exam; diminished but clear breath sounds. S1-S2 audible, no murmurs. Regular rhythm. Abdomen exam; soft, protuberant. Nontender. Bowel sounds audible. Extremity exam; peripheral edema clubbing. W[employer]OWS [employer] exam; no focal deficit. Results Result Diagram: 08/24/18 0548 08/24/18 0548 Results 24hrs Laboratory Tests Test 08/23/18 11:34 08/23/18 17:19 08/23/18 20:11 08/24/18 01:43 Bedside Glucose 279 H 359 H 305 H 180 Test 08/24/18 05:48 08/24/18 08:06 White Blood Count 6.7 Red Blood Count 3.66 L Hemoglobin 10.7 L Hematocrit 33.2 L Mean Corpuscular 90.7 Volume Mean Corpuscular 29.2 Hemoglobin Mean Corpuscular 32.2 Hemoglobin Concent Red Cell 18.7 H Distribution Width Platelet Count 284 # Mean Platelet Volume 10.4 Immature 0.900 H Granulocytes % Neutrophils % 68.9 Lymphocytes % 17.4 Monocytes % 11.4 H Eosinophils % 1.1 Basophils % 0.3 Nucleated Red Blood 0.3 H Cells % Immature 0.060 H Granulocytes # Neutrophils # 4.6 Lymphocytes # 1.2 Monocytes # 0.8 Eosinophils # 0.1 Basophils # 0.0 Nucleated Red Blood 0.0 Cells # Sodium Level 143 Potassium Level 4.1 Chloride Level 108 Carbon Dioxide Level 29 Anion Gap 6 Blood Urea Nitrogen 14 Creatinine 0.76 Est Glomerular Filtrat Rate mL/min Glucose Level 187 Calcium Level 8.5 Bedside Glucose 210 Medications Medication Current Medications IV Flush (NS 3 ml) 3 ml PER PROTOCOL IV ; Start 08/21/18 at 04:00 Ondansetron HCl (Zofran Inj) 4 mg Q6H PRN IV NAUSEA/VOMITING; Start 08/21/18 at 04:00 Nitroglycerin (Nitroglycerin (Sl Tab) 0.4 Mg) 1 tab Q5M PRN SL .CHEST PAIN; Start 08/21/18 at 04:00 Acetaminophen (Tylenol Tab) 650 mg Q6H PRN PO .PAIN 1-3 OR TEMP Last administered on 08/21/18 15:33; Admin Dose 650 MG; Start 08/21/18 at 04:00 Albuterol/ Ipratropium (Duoneb) 3 ml Q2H RESP THERAPY PRN HHN SHORTNESS OF BREATH; Start 08/21/18 at 04:00 Aspirin (Halfprin) 81 mg DAILY PO Last administered on 08/24/18 09:36; Admin Dose 81 MG; Start 08/21/18 at 09:00 Atorvastatin Calcium (Lipitor) 20 mg DAILY@2100 PO Last administered on 08/23/18 20:13; Admin Dose 20 MG; Start 08/21/18 at 21:00 Calcium Carbonate (Oyster Shell Calcium) 1.25 gm DAILY PO Last administered on 08/24/18 09:36; Admin Dose 1.25 GM; Start 08/21/18 at 09:00 Gabapentin (Neurontin) 300 mg TID PO Last administered on 08/24/18 09:36; Admin Dose 300 MG; Start 08/21/18 at 13:00 Fenofibrate (Tricor) 145 mg DAILY PO Last administered on 08/24/18 09:36; Adm in Dose 145 MG; Start 08/21/18 at 09:00 Insulin Aspart (Novolog Insulin Pen) NOVOLOG *MILD* ALGORITHM WITH MEALS BEDTIME SC Last administered on 08/24/18 09:40; Admin Dose 2 UNIT; Start 08/21/18 at 18:00 Miscellaneous Information 1 ea NOTE XX ; Start 08/21/18 at 15:00 Glucose (Glutose) 15 gm Q15M PRN PO DECREASED GLUCOSE; Start 08/21/18 at 15:00 Glucose (Glutose) 22.5 gm Q15M PRN PO DECREASED GLUCOSE; Start 08/21/18 at 15:00 Dextrose (D50w Syringe) 25 ml Q15M PRN IV DECREASED GLUCOSE; Start 08/21/18 at 15:00 Dextrose (D50w Syringe) 50 ml Q15M PRN IV DECREASED GLUCOSE; Start 08/21/18 at 15:00 Glucagon (Glucagen) 1 mg Q15M PRN IM DECREASED GLUCOSE; Start 08/21/18 at 15:00 Glucose (Glutose) 15 gm Q15M PRN BUCCAL DECREASED GLUCOSE; Start 08/21/18 at 15:00 Cefepime HCl 50 ml @ 100 mls/hr Q24H IVPB Last administered on 08/23/18 14:31; Admin Dose 100 MLS/HR; Start 08/21/18 at 15:30 Enoxaparin Sodium (Lovenox) 40 mg DAILY SC Last administered on 08/24/18 09:38; Admin Dose 40 MG; Start 08/23/18 at 09:00 Polysaccharide Iron Complex (Niferex-150) 1 cap BID PO Last administered on 08/23/18 20:13; Admin Dose 1 CAP; Start 08/23/18 at 09:00 Insulin Aspart (Novolog Insulin Pen) 4 unit WITH MEALS SC Last administered on 08/24/18 09:40; Admin Dose 4 UNIT; Start 08/23/18 at 11:30 Furosemide (Lasix) 20 mg BID DIURETICS IV Last administered on 08/24/18 06:31; Admin Dose 20 MG; Start 08/23/18 at 18:00 Insulin Glargine (Lantus) 12 units HS SC Last administered on 08/23/18 21:46; Admin Dose 12 UNITS; Start 08/23/18 at 21:30 BRIEN BUSBY Aug 24, 2018 09:46
[2018-08-24] MEDS: POLYSACCHARIDE IRON COMPLEX CAP PO SCH ×2 (10:56→20:43)
--- NOTE | 2018-08-24 11:50 | PN ---
Date/Time of Note Date/Time of Note DATE: 08/24/18 TIME: 11:46 Assessment/Plan VTE Prophylaxis Risk score (from Ns)>0 risk: 8 SCD applied (from Ns): No SCD contraindicated: low risk/ambulating Pharmacological prophylaxis: heparin Lines/Catheters IV Catheter Type (from [facility]): PORTACATH Central line still needed: Yes Urinary Cath still in place: No Assessment/Plan Problems: (1) Systolic and diastolic CHF, acute on chronic Status: Acute Comment: The patient's son has a copy of the echocardiogram photographed on his cell phone. In February of last year she had an ejection fraction above 60%. As of now we will start her on beta-blockade at low-dose using carvedilol and low- dose losartan at bedtime. Continue with diuresis (2) Carcinoma of right breast Status: Chronic Comment: Presently in the hospital but she has been receiving chemotherapy regularly and has a Port-A-Cath in the left upper chest Qualifiers: Breast location: unspecified site of breast Estrogen receptor status: unspecified Patient sex: female Qualified Codes: C50.911 - Malignant neoplasm of unspecified site of right female breast (3) Right middle lobe pulmonary nodule Comment: Noted. This will be followed up as an outpatient (4) Diabetes mellitus type 2 in obese Status: Chronic Comment: Continue with treatment. (5) Iron deficiency anemia Status: Chronic Comment: Patient is on oral iron replacement therapy Qualifiers: Iron deficiency anemia type: unspecified iron deficiency Qualified Codes: D50.9 - Iron deficiency anemia, unspecified (6) Osteoporosis Status: Chronic Comment: Noted. Qualifiers: Osteoporosis type: age-related Presence of current pathological fracture: without current pathological fracture Qualified Codes: M81.0 - Age-related osteoporosis without current pathological fracture (7) Peripheral neuropathy Status: Chronic Comment: Likely secondary diabetes although this can also be a side effect of chemotherapy Qualifiers: Peripheral neuropathy type: mononeuropathy due to underlying disease Qualified Codes: G59 - Mononeuropathy in diseases classified elsewhere (8) Obesity (BMI 30.0-34.9) Status: Chronic Comment: Noted. Calorie restriction diet Result Diagram: 08/24/18 0548 08/24/18 0548 Results 24hrs Laboratory Tests Test 08/23/18 17:19 08/23/18 20:11 08/24/18 01:43 08/24/18 05:48 Bedside Glucose 359 H 305 H 180 White Blood Count 6.7 Red Blood Count 3.66 L Hemoglobin 10.7 L Hematocrit 33.2 L Mean Corpuscular 90.7 Volume Mean Corpuscular 29.2 Hemoglobin Mean Corpuscular 32.2 Hemoglobin Concent Red Cell 18.7 H Distribution Width Platelet Count 284 # Mean Platelet Volume 10.4 Immature 0.900 H Granulocytes % Neutrophils % 68.9 Lymphocytes % 17.4 Monocytes % 11.4 H Eosinophils % 1.1 Basophils % 0.3 Nucleated Red Blood 0.3 H Cells % Immature 0.060 H Granulocytes # Neutrophils # 4.6 Lymphocytes # 1.2 Monocytes # 0.8 Eosinophils # 0.1 Basophils # 0.0 Nucleated Red Blood 0.0 Cells # Sodium Level 143 Potassium Level 4.1 Chloride Level 108 Carbon Dioxide Level 29 Anion Gap 6 Blood Urea Nitrogen 14 Creatinine 0.76 Est Glomerular Filtrat Rate mL/min Glucose Level 187 Calcium Level 8.5 Test 08/24/18 08:06 Bedside Glucose 210 Subjective 24 Hr Interval Summary Free Text/Dictation Patient with family at bedside who are assisting with translation. Patient reports that she is feeling better but not perfect. Constitutional: no complaints Respiratory: shortness of breath (Shortness of breath) Cardiovascular: no complaints (His chest pain palpitations), paroxysmal nocturnal dyspnea Gastrointestinal: no complaints Genitourinary: no complaints Skin: no complaints Exam/Review of Systems Exam Vitals Vital Signs Date Temp Pulse Resp B/P (MAP) Pulse Ox O2 O2 Flow FiO2 Time Delivery Rate 08/24/18 97.6 106 20 121/79 98 11:14 (93) 08/24/18 Nasal 2.0 08:15 Cannula 08/20/18 50 21:36 Intake and Output 08/23/18 08/23/18 08/24/18 1515:00 23:00 07:00 IntakeIntake Total 0 ml 50 ml 100 ml OutputOutput Total 850 ml 750 ml 450 ml BalanceBalance -850 ml -700 ml -350 ml Constitutional: alert, oriented Neck: supple, non-tender Respiratory: crackles/rales Cardiovascular: regular rate and rhythm, nl pulses Gastrointestinal: soft, nl liver, spleen, non-tender Results Results 24hrs Laboratory Tests Test 08/23/18 17:19 08/23/18 20:11 08/24/18 01:43 08/24/18 05:48 Bedside Glucose 359 H 305 H 180 White Blood Count 6.7 Red Blood Count 3.66 L Hemoglobin 10.7 L Hematocrit 33.2 L Mean Corpuscular 90.7 Volume Mean Corpuscular 29.2 Hemoglobin Mean Corpuscular 32.2 Hemoglobin Concent Red Cell 18.7 H Distribution Width Platelet Count 284 # Mean Platelet Volume 10.4 Immature 0.900 H Granulocytes % Neutrophils % 68.9 Lymphocytes % 17.4 Monocytes % 11.4 H Eosinophils % 1.1 Basophils % 0.3 Nucleated Red Blood 0.3 H Cells % Immature 0.060 H Granulocytes # Neutrophils # 4.6 Lymphocytes # 1.2 Monocytes # 0.8 Eosinophils # 0.1 Basophils # 0.0 Nucleated Red Blood 0.0 Cells # Sodium Level 143 Potassium Level 4.1 Chloride Level 108 Carbon Dioxide Level 29 Anion Gap 6 Blood Urea Nitrogen 14 Creatinine 0.76 Est Glomerular Filtrat Rate mL/min Glucose Level 187 Calcium Level 8.5 Test 08/24/18 08:06 Bedside Glucose 210 Medications Medication Current Medications IV Flush (NS 3 ml) 3 ml PER PROTOCOL IV ; Start 08/21/18 at 04:00 Ondansetron HCl (Zofran Inj) 4 mg Q6H PRN IV NAUSEA/VOMITING; Start 08/21/18 at 04:00 Nitroglycerin (Nitroglycerin (Sl Tab) 0.4 Mg) 1 tab Q5M PRN SL .CHEST PAIN; Start 08/21/18 at 04:00 Acetaminophen (Tylenol Tab) 650 mg Q6H PRN PO .PAIN 1-3 OR TEMP Last administered on 08/21/18at 15:33; Admin Dose 650 MG; Start 08/21/18 at 04:00 Albuterol/ Ipratropium (Duoneb) 3 ml Q2H RESP THERAPY PRN HHN SHORTNESS OF BREATH; Start 08/21/18 at 04:00 Aspirin (Halfprin) 81 mg DAILY PO Last administered on 08/24/18at 09:36; Admin Dose 81 MG; Start 08/21/18 at 09:00 Atorvastatin Calcium (Lipitor) 20 mg DAILY@2100 PO Last administered on 08/23/18at 20:13; Admin Dose 20 MG; Start 08/21/18 at 21:00 Calcium Carbonate (Oyster Shell Calcium) 1.25 gm DAILY PO Last administered on 08/24/18 09:36; Admin Dose 1.25 GM; Start 08/21/18 at 09:00 Gabapentin (Neurontin) 300 mg TID PO Last administered on 08/24/18 09:36; Admin Dose 300 MG; Start 08/21/18 at 13:00 Fenofibrate (Tricor) 145 mg DAILY PO Last administered on 08/24/18 09:36; Admin Dose 145 MG; Start 08/21/18 at 09:00 Insulin Aspart (Novolog Insulin Pen) NOVOLOG *MILD* ALGORITHM WITH MEALS BEDTIME SC Last administered on 08/24/18 09:40; Admin Dose 2 UNIT; Start 08/21/18 at 18:00 Miscellaneous Information 1 ea NOTE XX ; Start 08/21/18 at 15:00 Glucose (Glutose) 15 gm Q15M PRN PO DECREASED GLUCOSE; Start 08/21/18 at 15:00 Glucose (Glutose) 22.5 gm Q15M PRN PO DECREASED GLUCOSE; Start 08/21/18 at 15:00 Dextrose (D50w Syringe) 25 ml Q15M PRN IV DECREASED GLUCOSE; Start 08/21/18 at 15:00 Dextrose (D50w Syringe) 50 ml Q15M PRN IV DECREASED GLUCOSE; Start 08/21/18 at 15:00 Glucagon (Glucagen) 1 mg Q15M PRN IM DECREASED GLUCOSE; Start 08/21/18 at 15:00 Glucose (Glutose) 15 gm Q15M PRN BUCCAL DECREASED GLUCOSE; Start 08/21/18 at 15:00 Cefepime HCl 50 ml @ 100 mls/hr Q24H IVPB Last administered on 08/23/18at 14:31; Admin Dose 100 MLS/HR; Start 08/21/18 at 15:30 Enoxaparin Sodium (Lovenox) 40 mg DAILY SC Last administered on 08/24/18 09:38; Admin Dose 40 MG; Start 08/23/18 at 09:00 Polysaccharide Iron Complex (Niferex-150) 1 cap BID PO Last administered on 08/24/18 10:56; Admin Dose 1 CAP; Start 08/23/18 at 09:00 Insulin Aspart (Novolog Insulin Pen) 4 unit WITH MEALS SC Last administered on 08/24/18 09:40; Admin Dose 4 UNIT; Start 08/23/18 at 11:30 Furosemide (Lasix) 20 mg BID DIURETICS IV Last administered on 08/24/18at 06:31; Admin Dose 20 MG; Start 08/23/18 at 18:00 Insulin Glargine (Lantus) 12 units HS SC Last administered on 08/23/18at 21:46; Admin Dose 12 UNITS; Start 08/23/18 at 21:30 AILEEN SINGH MD Aug 24, 2018 11:50
[2018-08-24] MEDS: LINAGLIPTIN 5 MG TABLET PO SCH (12:15)
[2018-08-24] MEDS: CEFEPIME 1GM/50 ML (PMX) 50 ML IVPB SCH (14:37)
--- NOTE | 2018-08-24 15:47 | CONS ---
Consult Date/Type/Reason Admit Date/Time Aug 20, 2018 at 23:52 Initial Consult Date 08/22/18 Type of Consultation: CV Date/Time of Note DATE: 08/24/18 TIME: 15:42 Subjective Cardiology follow-up progress note Subjective: Case discussed with staff and telemetry was reviewed. Patient has remained in normal sinus rhythm. She denies any chest pain or pressure to me. She still has shortness of breath but appears to be stable now. Objective: General: no acute distress HEENT: NC/AT. pupils are equal. round. NECK: no stridor. CV: RRR. systolic murmur; no gallop or rubs. PULM: no wheezing or rhonchi. Chest: Left-sided port placement GI: SOFT, NT, ND, no rebound or guarding Extremity: trace B/L LE edema. no clubbing. neuro: awake and alert, OX3. Psych: calm and pleasant rectal: deferred Objective Vitals Vital Signs Date Temp Pulse Resp B/P (MAP) Pulse Ox O2 O2 Flow FiO2 Time Delivery Rate 08/24/18 120 12:28 08/24/18 97.6 20 121/79 98 11:14 (93) 08/24/18 Nasal 2.0 08:15 Cannula 08/20/18 50 21:36 Intake and Output 08/23/18 08/23/18 08/24/18 1515:00 23:00 07:00 IntakeIntake Total 0 ml 50 ml 100 ml OutputOutput Total 850 ml 750 ml 450 ml BalanceBalance -850 ml -700 ml -350 ml Results/Medications Result Diagram: 08/24/18 0548 08/24/18 0548 Results 24 hrs Laboratory Tests Test 08/23/18 17:19 08/23/18 20:11 08/24/18 01:43 08/24/18 05:48 Bedside Glucose 359 H 305 H 180 White Blood Count 6.7 Red Blood Count 3.66 L Hemoglobin 10.7 L Hematocrit 33.2 L Mean Corpuscular 90.7 Volume Mean Corpuscular 29.2 Hemoglobin Mean Corpuscular 32.2 Hemoglobin Concent Red Cell 18.7 H Distribution Width Platelet Count 284 # Mean Platelet Volume 10.4 Immature 0.900 H Granulocytes % Neutrophils % 68.9 Lymphocytes % 17.4 Monocytes % 11.4 H Eosinophils % 1.1 Basophils % 0.3 Nucleated Red Blood 0.3 H Cells % Immature 0.060 H Granulocytes # Neutrophils # 4.6 Lymphocytes # 1.2 Monocytes # 0.8 Eosinophils # 0.1 Basophils # 0.0 Nucleated Red Blood 0.0 Cells # Sodium Level 143 Potassium Level 4.1 Chloride Level 108 Carbon Dioxide Level 29 Anion Gap 6 Blood Urea Nitrogen 14 Creatinine 0.76 Est Glomerular Filtrat Rate mL/min Glucose Level 187 Calcium Level 8.5 Test 08/24/18 08:06 08/24/18 12:01 Bedside Glucose 210 223 H Home Meds Reported Medications Insulin Glargine,Hum.rec.anlog (Basaglar Kwikpen U-100) 100 Unit/1 Ml Insuln .pen, 40 UNIT SQ QHS 08/21/18 Sitagliptin Phos/Metformin HCl (Janumet 50-1,000 mg Tablet) 1 Each Tablet, 1 TAB PO BID for 30 Days, #60 08/21/18 Metoprolol Succinate* (Toprol XL*) 25 Mg Tab.sr.24h, 25 MG PO DAILY for 30 Days, #30 08/21/18 Amitriptyline Hcl* (Amitriptyline Hcl*) 100 Mg Tablet, 100 MG PO DAILY for 30 Days, #30 08/21/18 Fenofibrate, Micronized (Fenofibrate) 134 Mg Capsule, 134 MG PO DAILY for 30 Days, #30 08/21/18 Atorvastatin Calcium (Atorvastatin Calcium) 20 Mg Tablet, 20 MG PO DAILY for 30 Days, #30 08/21/18 Losartan-Hydrochlorothiazide (Losartan-HCTZ) 50-12.5 Mg Tab, 1 TAB PO DAILY for 30 Days, #30 08/21/18 Gabapentin* (Gabapentin*) 300 Mg Capsule, 300 MG PO TID for 30 Days, #90 08/21/18 Aspirin* (Aspirin* EC) 81 Mg Tablet.dr, 81 MG PO DAILY for 30 Days, #30 08/21/18 Ergocalciferol (Vitamin D2) (VITAMIN D2) 50,000 Unit Capsule, 92877 MG PO Q7D for 28 Days, #4 08/21/18 Calcium Carbonate (Oysco-500) 500 Mg Tablet, 500 MG PO DAILY for 30 Days, #60 08/21/18 Enalapril Maleate* (Enalapril Maleate*) 5 Mg Tablet, 5 MG PO DAILY, TAB 11/25/15 Calcium Carbonate* (Os-Cody 500*) 1 Tab Tablet, 1 TAB PO BID, TAB 11/25/15 Alendronate Sodium* (Fosamax*) 70 Mg Tablet, 70 MG PO Q7D PRN for QFRI, #4 TAB 11/25/15 Discontinued Reported Medications Aspirin (Low Dose Aspirin) 81 Mg Tablet.dr, 81 MG PO DAILY, #30 TAB 11/25/15 Sitagliptin* (Januvia*) 50 Mg Tablet, 50 MG PO DAILY, #30 TAB 11/25/15 Discontinued Scripts Metformin* (Glucophage*) 1,000 Mg Tablet, 1000 MG PO BID, #60 TAB Prov:JANESSA MEDINA MD 11/25/15 Medications Current Medications IV Flush (NS 3 ml) 3 ml PER PROTOCOL IV ; Start 08/21/18 at 04:00 Ondansetron HCl (Zofran Inj) 4 mg Q6H PRN IV NAUSEA/VOMITING; Start 08/21/18 at 04:00 Nitroglycerin (Nitroglycerin (Sl Tab) 0.4 Mg) 1 tab Q5M PRN SL .CHEST PAIN; Start 08/21/18 at 04:00 Acetaminophen (Tylenol Tab) 650 mg Q6H PRN PO .PAIN 1-3 OR TEMP Last administered on 08/21/18at 15:33; Admin Dose 650 MG; Start 08/21/18 at 04:00 Albuterol/ Ipratropium (Duoneb) 3 ml Q2H RESP THERAPY PRN HHN SHORTNESS OF BREATH; Start 08/21/18 at 04:00 Aspirin (Halfprin) 81 mg DAILY PO Last administered on 08/24/18 09:36; Admin Dose 81 MG; Start 08/21/18 at 09:00 Atorvastatin Calcium (Lipitor) 20 mg DAILY@2100 PO Last administered on 08/23/18 20:13; Admin Dose 20 MG; Start 08/21/18 at 21:00 Calcium Carbonate (Oyster Shell Calcium) 1.25 gm DAILY PO Last administered on 08/24/18 09:36; Admin Dose 1.25 GM; Start 08/21/18 at 09:00 Gabapentin (Neurontin) 300 mg TID PO Last administered on 08/24/18at 12:15; Admin Dose 300 MG; Start 08/21/18 at 13:00 Fenofibrate (Tricor) 145 mg DAILY PO Last administered on 08/24/18 09:36; Admin Dose 145 MG; Start 08/21/18 at 09:00 Insulin Aspart (Novolog Insulin Pen) NOVOLOG *MILD* ALGORITHM WITH MEALS BEDTIME SC Last administered on 08/24/18 12:18; Admin Dose 3 UNIT; Start 08/21/18 at 18:00 Miscellaneous Information 1 ea NOTE XX ; Start 08/21/18 at 15:00 Glucose (Glutose) 15 gm Q15M PRN PO DECREASED GLUCOSE; Start 08/21/18 at 15:00 Glucose (Glutose) 22.5 gm Q15M PRN PO DECREASED GLUCOSE; Start 08/21/18 at 15:00 Dextrose (D50w Syringe) 25 ml Q15M PRN IV DECREASED GLUCOSE; Start 08/21/18 at 15:00 Dextrose (D50w Syringe) 50 ml Q15M PRN IV DECREASED GLUCOSE; Start 08/21/18 at 15:00 Glucagon (Glucagen) 1 mg Q15M PRN IM DECREASED GLUCOSE; Start 08/21/18 at 15:00 Glucose (Glutose) 15 gm Q15M PRN BUCCAL DECREASED GLUCOSE; Start 08/21/18 at 1 5:00 Cefepime HCl 50 ml @ 100 mls/hr Q24H IVPB Last administered on 08/24/18at 14:37; Admin Dose 100 MLS/HR; Start 08/21/18 at 15:30 Enoxaparin Sodium (Lovenox) 40 mg DAILY SC Last administered on 08/24/18at 09:38; Admin Dose 40 MG; Start 08/23/18 at 09:00 Polysaccharide Iron Complex (Niferex-150) 1 cap BID PO Last administered on 08/24/18at 10:56; Admin Dose 1 CAP; Start 08/23/18 at 09:00 Insulin Aspart (Novolog Insulin Pen) 4 unit WITH MEALS SC Last administered on 08/24/18 12:19; Admin Dose 4 UNIT; Start 08/23/18 at 11:30 Furosemide (Lasix) 20 mg BID DIURETICS IV Last administered on 08/24/18 06:31; Admin Dose 20 MG; Start 08/23/18 at 18:00 Insulin Glargine (Lantus) 12 units HS SC Last administered on 08/23/18at 21:46; Admin Dose 12 UNITS; Start 08/23/18 at 21:30 Linagliptin (Tradjenta) 5 mg DAILY PO Last administered on 08/24/18at 12:15; Admin Dose 5 MG; Start 08/24/18 at 12:00 Diagnostic Test (Pha) (Accu-Chek) 1 ea AC MEALS AND BEDTIME XX ; Start 08/24/18 at 17:25 Carvedilol (Coreg) 3.125 mg BID PO Last administered on 08/24/18at 12:16; Admin Dose 3.125 MG; Start 08/24/18 at 12:00 Losartan Potassium (Cozaar) 25 mg QHS PO ; Start 08/24/18 at 21:00 Assessment/Plan Hospital Course (Demo Recall) congestive heart failure HTN Cardiomyopathy with left ventricular ejection fraction 30% Breast cancer status post chemotherapy anemia Recommendation: Continue with the Coreg and losartan as tolerated -Antibiotics as per primary team We will add digoxin as well -Continue aspirin and statin therapy -Continue telemetry monitoring. Thank you for his referral. We will continue to follow along with you until Dr. Mcdermott returns on Sunday VALERI COATES MD [facility] VALERI COATES MD Aug 24, 2018 15:47
[2018-08-24] MEDS: DIGOXIN 0.125 MG TAB PO SCH (16:34)
[2018-08-24] MEDS: ACCU-CHEK XX SCH ×2 (17:26→21:03)
[2018-08-24] MEDS: LOSARTAN 25 MG TAB PO SCH (20:43)
[2018-08-24] MEDS: ATORVASTATIN 20 MG TAB PO SCH (20:44)
[2018-08-24] MEDS: INSULIN GLARGINE [LANTus] (100 UNITS/ML) SYG SC SCH (20:55)
[2018-08-25] VITALS (12 sets, daily range): BP systolic 94–109; BP diastolic 51–65; PULSE 73–105; RESP 18–20
[2018-08-25] MEDS: FUROSEMIDE 40 MG INJ IV SCH (05:28)
[2018-08-25] MEDS: ACCU-CHEK XX SCH ×4 (07:51→21:15)
[2018-08-25] MEDS: INSULIN ASPART [NOVOLOG] 3 ML PEN SC SCH ×7 (07:56→21:00)
[2018-08-25] MEDS: FENOFIBRATE 145 MG TAB PO SCH (08:37)
[2018-08-25] MEDS: POLYSACCHARIDE IRON COMPLEX CAP PO SCH ×2 (08:37→20:41)
[2018-08-25] MEDS: CALCIUM CARBONATE 1.25 GM TAB PO SCH (08:38)
[2018-08-25] MEDS: ASPIRIN (EC) 81 MG TAB PO SCH (08:38)
[2018-08-25] MEDS: GABAPENTIN 300 MG CAP PO SCH ×3 (08:38→20:41)
[2018-08-25] MEDS: ENOXAPARIN 40 MG/0.4 ML SYG SC SCH (08:39)
[2018-08-25] MEDS: LINAGLIPTIN 5 MG TABLET PO SCH (08:57)
--- NOTE | 2018-08-25 10:46 | CONS ---
Assessment/Plan Assessment/Plan Assessment/Plan (Daily) Chest x-ray was reviewed from today which is showing mild persistent pulmonary edema Assessment and recommendations; 1. Patient admitted with shortness of breath due to CHF exacerbation due to underlying cardiomyopathy which likely is chemotherapy induced. 2. History of recently diagnosed breast cancer, patient on outpatient chemotherapy. 3. History of diabetes and neuropathy. Continue current supportive care. Consider stopping antibiotics. Consider discharge. Consultation Date/Type/Reason Admit Date/Time Aug 20, 2018 at 23:52 Initial Consult Date 08/22/18 Type of Consult Pulmonary/critical care Pulmonary consult requested for evaluation of shortness of breath. Patient is a pleasant 72-year-old lady who came into the emergency room with a history of 2 days of shortness of breath without any associated chest pain, wheezing coughing or sputum production. Patient also denies having any fever or chills. Upon evaluation chest x-ray was done which is showing changes of mild pulmonary edema which was subsequently confirmed by CT of the chest. Also there was no pulmonary embolism seen on CT of the chest as well. Patient has been started on IV Lasix and also requiring low-dose pressor support. By the time I saw her, the patient is completely awake and alert and according to her she is markedly improved. Denies any recent fever, chills, any abdominal pain, nausea vomiting. Past medical history; 1. History of right breast cancer currently on chemotherapy. 2. History of hypertension. 3. Neuropathy. 4. Positive troponins during current admission, significance of that is unclear. Possibly demand ischemia. Medications; reviewed. Allergies; none. Family history; noncontributory. Patient does have a supportive family though. Social history; patient never smoked. Occupational history; noncontributory. Review of systems; denies any headache, seizures, visual changes. Shortness of breath is markedly improved. Denies any coughing, wheezing, sputum production or hemoptysis. Denies any abdominal pain, nausea vomiting. Any melena hematochezia, diarrhea or constipation. Any urinary symptoms. Any orthopnea. Any weight change. Any skin changes or any new arthritis symptoms. General exam; elderly female, awake alert, currently no distress. Laying comfortably in bed. Date/Time of Note DATE: 08/25/18 TIME: 10:44 24 HR Interval Summary Free Text/Dictation Patient's condition is markedly improved. Denies any shortness of breath, coughing, wheezing. General exam; elderly female, awake and alert. Currently in no distress. On room air. Exam/Review of Systems Exam Vitals Vital Signs Date Temp Pulse Resp B/P (MAP) Pulse Ox O2 O2 Flow FiO2 Time Delivery Rate 08/25/18 98.1 91 20 106/51 96 Nasal 08:16 (69) Cannula 08/25/18 3.0 03:56 Intake and Output 08/24/18 08/24/18 08/25/18 1515:00 23:00 07:00 IntakeIntake Total 750 ml 240 ml OutputOutput Total 450 ml BalanceBalance 300 ml 240 ml Exam H EENT exam; supple neck, positive JVD. No lymphadenopathy. Midline trachea. No thyromegaly. Patient has fair dentition. Patient is alopecic. No neck masses. Chest exam; clear to auscultation. S1-S2 audible, no murmurs. Regular rhythm. Abdomen exam; soft, no organomegaly. Bowel sounds audible. Extremity exam; peripheral edema. [employer] exam; no focal deficit. Results Result Diagram: 08/25/18 0552 08/25/18 0552 Results 24hrs Laboratory Tests Test 08/24/18 12:01 08/24/18 17:25 08/24/18 20:38 08/25/18 05:52 Bedside Glucose 223 H 279 H 232 H White Blood Count 6.2 Red Blood Count 3.88 L Hemoglobin 11.0 L Hematocrit 36.0 L Mean Corpuscular 92.8 Volume Mean Corpuscular 28.4 L Hemoglobin Mean Corpuscular 30.6 L Hemoglobin Concent Red Cell 18.9 H Distribution Width Platelet Count 297 Mean Platelet Volume 10.3 Immature 1.600 H Granulocytes % Neutrophils % 63.6 Lymphocytes % 20.9 Monocytes % 12.1 H Eosinophils % 1.6 Basophils % 0.2 Nucleated Red Blood 0.3 H Cells % Immature 0.100 H Granulocytes # Neutrophils # 4.0 Lymphocytes # 1.3 Monocytes # 0.8 Eosinophils # 0.1 Basophils # 0.0 Nucleated Red Blood 0.0 Cells # Sodium Level 143 Potassium Level 4.2 Chloride Level 103 Carbon Dioxide Level 30 Anion Gap 10 Blood Urea Nitrogen 20 Creatinine 0.88 Est Glomerular Filtrat Rate mL/min Glucose Level 197 Calcium Level 8.9 Magnesium Level 2.5 B-Type Natriuretic 5950 H Peptide Test 08/25/18 07:49 Bedside Glucose 172 Medications Medication Current Medications IV Flush (NS 3 ml) 3 ml PER PROTOCOL IV ; Start 08/21/18 at 04:00 Ondansetron HCl (Zofran Inj) 4 mg Q6H PRN IV NAUSEA/VOMITING; Start 08/21/18 at 04:00 Nitroglycerin (Nitroglycerin (Sl Tab) 0.4 Mg) 1 tab Q5M PRN SL .CHEST PAIN; Start 08/21/18 at 04:00 Acetaminophen (Tylenol Tab) 650 mg Q6H PRN PO .PAIN 1-3 OR TEMP Last administered on 08/21/18at 15:33; Admin Dose 650 MG; Start 08/21/18 at 04:00 Albuterol/ Ipratropium (Duoneb) 3 ml Q2H RESP THERAPY PRN HHN SHORTNESS OF BREATH; Start 08/21/18 at 04:00 Aspirin (Halfprin) 81 mg DAILY PO Last administered on 08/25/18 08:38; Admin Dose 81 MG; Start 08/21/18 at 09:00 Atorvastatin Calcium (Lipitor) 20 mg DAILY@2100 PO Last administered on 08/24/18 20:44; Admin Dose 20 MG; Start 08/21/18 at 21:00 Calcium Carbonate (Oyster Shell Calcium) 1.25 gm DAILY PO Last administered on 08/25/18 08:38; Admin Dose 1.25 GM; Start 08/21/18 at 09:00 Gabapentin (Neurontin) 300 mg TID PO Last administered on 08/25/18 08:38; Admin Dose 300 MG; Start 08/21/18 at 13:00 Fenofibrate (Tricor) 145 mg DAILY PO Last administered on 08/25/18 08:37; Admin Dose 145 MG; Start 08/21/18 at 09:00 Insulin Aspart (Novolog Insulin Pen) NOVOLOG *MILD* ALGORITHM WITH MEALS BEDTIME SC Last administered on 08/25/18 07:56; Admin Dose 1 UNIT; Start 08/21/18 at 18:00 Miscellaneous Information 1 ea NOTE XX ; Start 08/21/18 at 15:00 Glucose (Glutose) 15 gm Q15M PRN PO DECREASED GLUCOSE; Start 08/21/18 at 15:00 Glucose (Glutose) 22.5 gm Q15M PRN PO DECREASED GLUCOSE; Start 08/21/18 at 15:00 Dextrose (D50w Syringe) 25 ml Q15M PRN IV DECREASED GLUCOSE; Start 08/21/18 at 15:00 Dextrose (D50w Syringe) 50 ml Q15M PRN IV DECREASED GLUCOSE; Start 08/21/18 at 15:00 Glucagon (Glucagen) 1 mg Q15M PRN IM DECREASED GLUCOSE; Start 08/21/18 at 15:00 Glucose (Glutose) 15 gm Q15M PRN BUCCAL DECREASED GLUCOSE; Start 08/21/18 at 15:00 Cefepime HCl 50 ml @ 100 mls/hr Q24H IVPB Last administered on 08/24/18 14:37; Admin Dose 100 MLS/HR; Start 08/21/18 at 15:30 Enoxaparin Sodium (Lovenox) 40 mg DAILY SC Last administered on 08/25/18 08:39; Admin Dose 40 MG; Start 08/23/18 at 09:00 Polysaccharide Iron Complex (Niferex-150) 1 cap BID PO Last administered on 08/25/18 08:37; Admin Dose 1 CAP; Start 08/23/18 at 09:00 Furosemide (Lasix) 20 mg BID DIURETICS IV Last administered on 08/25/18 05:28; Admin Dose 20 MG; Start 08/23/18 at 18:00 Insulin Glargine (Lantus) 12 units HS SC Last administered on 08/24/18 20:55; Admin Dose 12 UNITS; Start 08/23/18 at 21:30 Linagliptin (Tradjenta) 5 mg DAILY PO Last administered on 08/25/18 08:57; Admin Dose 5 MG; Start 08/24/18 at 12:00 Diagnostic Test (Pha) (Accu-Chek) 1 ea AC MEALS AND BEDTIME XX Last administered on 08/25/18 07:51; Admin Dose 1 EA; Start 08/24/18 at 17:25 Carvedilol (Coreg) 3.125 mg BID PO Last administered on 08/25/18 08:57; Admin Dose 3.125 MG; Start 08/24/18 at 12:00 Losartan Potassium (Cozaar) 25 mg QHS PO Last administered on 08/24/18 20:43; Admin Dose 25 MG; Start 08/24/18 at 21:00 Digoxin (Digoxin) 0.125 mg DAILY@13 PO Last administered on 08/24/18at 16:34; Admin Dose 0.125 MG; Start 08/24/18 at 16:00 Insulin Aspart (Novolog Insulin Pen) 6 unit WITH MEALS SC Last administered on 08/25/18at 07:57; Admin Dose 6 UNIT; Start 08/24/18 at 17:55 BRIEN BUSBY Aug 25, 2018 10:46
--- NOTE | 2018-08-25 11:48 | PN ---
Date/Time of Note Date/Time of Note DATE: 08/25/18 TIME: 11:46 Assessment/Plan VTE Prophylaxis Risk score (from [facility])>0 risk: 6 SCD applied (from [facility]): No SCD contraindicated: low risk/ambulating Pharmacological prophylaxis: heparin Pharm contraindication: low risk/ambulating Lines/Catheters IV Catheter Type (from [facility]): PORTACATH Urinary Cath still in place: No Assessment/Plan Problems: (1) Systolic and diastolic CHF, acute on chronic Status: Acute Comment: She is improving nicely at this time. She is not quite ready for discharge as I can still appreciate an S3 on the exam and basilar crackles. However she is tolerating beta-blockade and afterload reduction therapy. Switch the furosemide over to an oral preparation to get her ready for discharge hopefully tomorrow. Cardiology input (2) Carcinoma of right breast Status: Chronic Comment: Stable at this time. Qualifiers: Breast location: unspecified site of breast Estrogen receptor status: unspecified Patient sex: female Qualified Codes: C50.911 - Malignant neoplasm of unspecified site of right female breast (3) Diabetes mellitus type 2 in obese Status: Chronic Comment: Improved control. (4) Iron deficiency anemia Status: Chronic Comment: Noted. Qualifiers: Iron deficiency anemia type: unspecified iron deficiency Qualified Codes: D50.9 - Iron deficiency anemia, unspecified (5) Right middle lobe pulmonary nodule Status: Chronic Comment: Outpatient follow-up by oncologist Result Diagram: 08/25/18 0552 08/25/18 0552 Results 24hrs Laboratory Tests Test 08/24/18 12:01 08/24/18 17:25 08/24/18 20:38 08/25/18 05:52 Bedside Glucose 223 H 279 H 232 H White Blood Count 6.2 Red Blood Count 3.88 L Hemoglobin 11.0 L Hematocrit 36.0 L Mean Corpuscular 92.8 Volume Mean Corpuscular 28.4 L Hemoglobin Mean Corpuscular 30.6 L Hemoglobin Concent Red Cell 18.9 H Distribution Width Platelet Count 297 Mean Platelet Volume 10.3 Immature 1.600 H Granulocytes % Neutrophils % 63.6 Lymphocytes % 20.9 Monocytes % 12.1 H Eosinophils % 1.6 Basophils % 0.2 Nucleated Red Blood 0.3 H Cells % Immature 0.100 H Granulocytes # Neutrophils # 4.0 Lymphocytes # 1.3 Monocytes # 0.8 Eosinophils # 0.1 Basophils # 0.0 Nucleated Red Blood 0.0 Cells # Sodium Level 143 Potassium Level 4.2 Chloride Level 103 Carbon Dioxide Level 30 Anion Gap 10 Blood Urea Nitrogen 20 Creatinine 0.88 Est Glomerular Filtrat Rate mL/min Glucose Level 197 Calcium Level 8.9 Magnesium Level 2.5 B-Type Natriuretic 5950 H Peptide Test 08/25/18 07:49 Bedside Glucose 172 Subjective 24 Hr Interval Summary Free Text/Dictation Patient reports she is feeling better today than yesterday. Constitutional: no complaints Respiratory: no complaints (Shortness of breath) Cardiovascular: no complaints Gastrointestinal: no complaints Exam/Review of Systems Exam Vitals Vital Signs Date Temp Pulse Resp B/P (MAP) Pulse Ox O2 O2 Flow FiO2 Time Delivery Rate 08/25/18 98.2 97 18 98/51 (67) 96 Nasal 11:07 Cannula 08/25/18 2.0 11:00 Intake and Output 08/24/18 08/24/18 08/25/18 1515:00 23:00 07:00 IntakeIntake Total 750 ml 240 ml OutputOutput Total 450 ml BalanceBalance 300 ml 240 ml Constitutional: alert, oriented Respiratory: crackles/rales (Basilar crackles) Cardiovascular: regular rate and rhythm, nl pulses, S3 Gastrointestinal: soft, nl liver, spleen, non-tender Results Results 24hrs Laboratory Tests Test 08/24/18 12:01 08/24/18 17:25 08/24/18 20:38 08/25/18 05:52 Bedside Glucose 223 H 279 H 232 H White Blood Count 6.2 Red Blood Count 3.88 L Hemoglobin 11.0 L Hematocrit 36.0 L Mean Corpuscular 92.8 Volume Mean Corpuscular 28.4 L Hemoglobin Mean Corpuscular 30.6 L Hemoglobin Concent Red Cell 18.9 H Distribution Width Platelet Count 297 Mean Platelet Volume 10.3 Immature 1.600 H Granulocytes % Neutrophils % 63.6 Lymphocytes % 20.9 Monocytes % 12.1 H Eosinophils % 1.6 Basophils % 0.2 Nucleated Red Blood 0.3 H Cells % Immature 0.100 H Granulocytes # Neutrophils # 4.0 Lymphocytes # 1.3 Monocytes # 0.8 Eosinophils # 0.1 Basophils # 0.0 Nucleated Red Blood 0.0 Cells # Sodium Level 143 Potassium Level 4.2 Chloride Level 103 Carbon Dioxide Level 30 Anion Gap 10 Blood Urea Nitrogen 20 Creatinine 0.88 Est Glomerular Filtrat Rate mL/min Glucose Level 197 Calcium Level 8.9 Magnesium Level 2.5 B-Type Natriuretic 5950 H Peptide Test 08/25/18 07:49 Bedside Glucose 172 Medications Medication Current Medications IV Flush (NS 3 ml) 3 ml PER PROTOCOL IV ; Start 08/21/18 at 04:00 Ondansetron HCl (Zofran Inj) 4 mg Q6H PRN IV NAUSEA/VOMITING; Start 08/21/18 at 04:00 Nitroglycerin (Nitroglycerin (Sl Tab) 0.4 Mg) 1 tab Q5M PRN SL .CHEST PAIN; Start 08/21/18 at 04:00 Acetaminophen (Tylenol Tab) 650 mg Q6H PRN PO .PAIN 1-3 OR TEMP Last administer ed on 08/21/18at 15:33; Admin Dose 650 MG; Start 08/21/18 at 04:00 Albuterol/ Ipratropium (Duoneb) 3 ml Q2H RESP THERAPY PRN HHN SHORTNESS OF BREATH; Start 08/21/18 at 04:00 Aspirin (Halfprin) 81 mg DAILY PO Last administered on 08/25/18 08:38; Admin Dose 81 MG; Start 08/21/18 at 09:00 Atorvastatin Calcium (Lipitor) 20 mg DAILY@2100 PO Last administered on 08/24/18 20:44; Admin Dose 20 MG; Start 08/21/18 at 21:00 Calcium Carbonate (Oyster Shell Calcium) 1.25 gm DAILY PO Last administered on 08/25/18 08:38; Admin Dose 1.25 GM; Start 08/21/18 at 09:00 Gabapentin (Neurontin) 300 mg TID PO Last administered on 08/25/18 08:38; Admin Dose 300 MG; Start 08/21/18 at 13:00 Fenofibrate (Tricor) 145 mg DAILY PO Last administered on 08/25/18 08:37; Admin Dose 145 MG; Start 08/21/18 at 09:00 Insulin Aspart (Novolog Insulin Pen) NOVOLOG *MILD* ALGORITHM WITH MEALS BEDTIME SC Last administered on 08/25/18 07:56; Admin Dose 1 UNIT; Start 08/21/18 at 18:00 Miscellaneous Information 1 ea NOTE XX ; Start 08/21/18 at 15:00 Glucose (Glutose) 15 gm Q15M PRN PO DECREASED GLUCOSE; Start 08/21/18 at 15:00 Glucose (Glutose) 22.5 gm Q15M PRN PO DECREASED GLUCOSE; Start 08/21/18 at 15:00 Dextrose (D50w Syringe) 25 ml Q15M PRN IV DECREASED GLUCOSE; Start 08/21/18 at 15:00 Dextrose (D50w Syringe) 50 ml Q15M PRN IV DECREASED GLUCOSE; Start 08/21/18 at 15:00 Glucagon (Glucagen) 1 mg Q15M PRN IM DECREASED GLUCOSE; Start 08/21/18 at 15:00 Glucose (Glutose) 15 gm Q15M PRN BUCCAL DECREASED GLUCOSE; Start 08/21/18 at 15:00 Cefepime HCl 50 ml @ 100 mls/hr Q24H IVPB Last administered on 08/24/18 14:37; Admin Dose 100 MLS/HR; Start 08/21/18 at 15:30 Enoxaparin Sodium (Lovenox) 40 mg DAILY SC Last administered on 08/25/18 08:39; Admin Dose 40 MG; Start 08/23/18 at 09:00 Polysaccharide Iron Complex (Niferex-150) 1 cap BID PO Last administered on 08/25/18 08:37; Admin Dose 1 CAP; Start 08/23/18 at 09:00 Furosemide (Lasix) 20 mg BID DIURETICS IV Last administered on 08/25/18 05:28 ; Admin Dose 20 MG; Start 08/23/18 at 18:00 Insulin Glargine (Lantus) 12 units HS SC Last administered on 08/24/18 20:55; Admin Dose 12 UNITS; Start 08/23/18 at 21:30 Linagliptin (Tradjenta) 5 mg DAILY PO Last administered on 08/25/18 08:57; Admin Dose 5 MG; Start 08/24/18 at 12:00 Diagnostic Test (Pha) (Accu-Chek) 1 ea AC MEALS AND BEDTIME XX Last administered on 08/25/18 07:51; Admin Dose 1 EA; Start 08/24/18 at 17:25 Carvedilol (Coreg) 3.125 mg BID PO Last administered on 08/25/18 08:57; Admin Dose 3.125 MG; Start 08/24/18 at 12:00 Losartan Potassium (Cozaar) 25 mg QHS PO Last administered on 08/24/18at 20:43; Admin Dose 25 MG; Start 08/24/18 at 21:00 Digoxin (Digoxin) 0.125 mg DAILY@13 PO Last administered on 08/24/18at 16:34; Admin Dose 0.125 MG; Start 08/24/18 at 16:00 Insulin Aspart (Novolog Insulin Pen) 6 unit WITH MEALS SC Last administered on 08/25/18at 07:57; Admin Dose 6 UNIT; Start 08/24/18 at 17:55 AILEEN SINGH MD Aug 25, 2018 11:48
[2018-08-25] MEDS: DIGOXIN 0.125 MG TAB PO SCH (12:15)
[2018-08-25] MEDS: FUROSEMIDE 40 MG TAB PO SCH (12:15)
--- NOTE | 2018-08-25 17:34 | CONS ---
Consult Date/Type/Reason Admit Date/Time Aug 20, 2018 at 23:52 Initial Consult Date 08/22/18 Type of Consultation: CV Date/Time of Note DATE: 08/25/18 TIME: 17:31 Subjective Cardiology follow-up progress note Subjective: Case discussed with staff and telemetry was reviewed. Patient has remained in normal sinus rhythm. She denies any chest pain or pressure to me. She still has shortness of breath but appears to be stable now. Objective: General: no acute distress HEENT: NC/AT. pupils are equal. round. NECK: no stridor. CV: RRR. systolic murmur; no gallop or rubs. PULM: no wheezing or rhonchi. Chest: Left-sided port placement GI: SOFT, NT, ND, no rebound or guarding Extremity: trace B/L LE edema. no clubbing. neuro: awake and alert, OX3. Psych: calm and pleasant rectal: deferred Objective Vitals Vital Signs Date Temp Pulse Resp B/P (MAP) Pulse Ox O2 O2 Flow FiO2 Time Delivery Rate 08/25/18 99 16:00 08/25/18 98.2 18 102/53 93 Nasal 15:24 (69) Cannula 08/25/18 2.0 11:00 Intake and Output 08/24/18 08/24/18 08/25/18 1515:00 23:00 07:00 IntakeIntake Total 750 ml 240 ml OutputOutput Total 450 ml BalanceBalance 300 ml 240 ml Results/Medications Result Diagram: 08/25/18 0552 08/25/18 0552 Results 24 hrs Laboratory Tests Test 08/24/18 20:38 08/25/18 05:52 08/25/18 07:49 08/25/18 12:07 Bedside Glucose 232 H 172 206 White Blood Count 6.2 Red Blood Count 3.88 L Hemoglobin 11.0 L Hematocrit 36.0 L Mean Corpuscular 92.8 Volume Mean Corpuscular 28.4 L Hemoglobin Mean Corpuscular 30.6 L Hemoglobin Concent Red Cell 18.9 H Distribution Width Platelet Count 297 Mean Platelet Volume 10.3 Immature 1.600 H Granulocytes % Neutrophils % 63.6 Lymphocytes % 20.9 Monocytes % 12.1 H Eosinophils % 1.6 Basophils % 0.2 Nucleated Red Blood 0.3 H Cells % Immature 0.100 H Granulocytes # Neutrophils # 4.0 Lymphocytes # 1.3 Monocytes # 0.8 Eosinophils # 0.1 Basophils # 0.0 Nucleated Red Blood 0.0 Cells # Sodium Level 143 Potassium Level 4.2 Chloride Level 103 Carbon Dioxide Level 30 Anion Gap 10 Blood Urea Nitrogen 20 Creatinine 0.88 Est Glomerular Filtrat Rate mL/min Glucose Level 197 Calcium Level 8.9 Magnesium Level 2.5 B-Type Natriuretic 5950 H Peptide Home Meds Reported Medications Insulin Glargine,Hum.rec.anlog (Basaglar Kwikpen U-100) 100 Unit/1 Ml Insuln.pen, 40 UNIT SQ QHS 08/21/18 Sitagliptin Phos/Metformin HCl (Janumet 50-1,000 mg Tablet) 1 Each Tablet, 1 TAB PO BID for 30 Days, #60 08/21/18 Metoprolol Succinate* (Toprol XL*) 25 Mg Tab.sr.24h, 25 MG PO DAILY for 30 Days, #30 08/21/18 Amitriptyline Hcl* (Amitriptyline Hcl*) 100 Mg Tablet, 100 MG PO DAILY for 30 Days, #30 08/21/18 Fenofibrate, Micronized (Fenofibrate) 134 Mg Capsule, 134 MG PO DAILY for 30 Days, #30 08/21/18 Atorvastatin Calcium (Atorvastatin Calcium) 20 Mg Tablet, 20 MG PO DAILY for 30 Days, #30 08/21/18 Losartan-Hydrochlorothiazide (Losartan-HCTZ) 50-12.5 Mg Tab, 1 TAB PO DAILY for 30 Days, #30 08/21/18 Gabapentin* (Gabapentin*) 300 Mg Capsule, 300 MG PO TID for 30 Days, #90 08/21/18 Aspirin* (Aspirin* EC) 81 Mg Tablet.dr, 81 MG PO DAILY for 30 Days, #30 08/21/18 Ergocalciferol (Vitamin D2) (VITAMIN D2) 50,000 Unit Capsule, 07725 MG PO Q7D for 28 Days, #4 08/21/18 Calcium Carbonate (Oysco-500) 500 Mg Tablet, 500 MG PO DAILY for 30 Days, #60 08/21/18 Enalapril Maleate* (Enalapril Maleate*) 5 Mg Tablet, 5 MG PO DAILY, TAB 11/25/15 Calcium Carbonate* (Os-Cody 500*) 1 Tab Tablet, 1 TAB PO BID, TAB 11/25/15 Alendronate Sodium* (Fosamax*) 70 Mg Tablet, 70 MG PO Q7D PRN for QFRI, #4 TAB 11/25/15 Discontinued Reported Medications Aspirin (Low Dose Aspirin) 81 Mg Tablet.dr, 81 MG PO DAILY, #30 TAB 11/25/15 Sitagliptin* (Januvia*) 50 Mg Tablet, 50 MG PO DAILY, #30 TAB 11/25/15 Discontinued Scripts Metformin* (Glucophage*) 1,000 Mg Tablet, 1000 MG PO BID, #60 TAB Prov:JANESSA MEDINA MD 11/25/15 Medications Current Medications IV Flush (NS 3 ml) 3 ml PER PROTOCOL IV ; Start 08/21/18 at 04:00 Ondansetron HCl (Zofran Inj) 4 mg Q6H PRN IV NAUSEA/VOMITING; Start 08/21/18 at 04:00 Nitroglycerin (Nitroglycerin (Sl Tab) 0.4 Mg) 1 tab Q5M PRN SL .CHEST PAIN; Start 08/21/18 at 04:00 Acetaminophen (Tylenol Tab) 650 mg Q6H PRN PO .PAIN 1-3 OR TEMP Last administered on 08/21/18 15:33; Admin Dose 650 MG; Start 08/21/18 at 04:00 Albuterol/ Ipratropium (Duoneb) 3 ml Q2H RESP THERAPY PRN HHN SHORTNESS OF BREATH; Start 08/21/18 at 04:00 Aspirin (Halfprin) 81 mg DAILY PO Last administered on 08/25/18 08:38; Admin Dose 81 MG; Start 08/21/18 at 09:00 Atorvastatin Calcium (Lipitor) 20 mg DAILY@2100 PO Last administered on 08/24/18 20:44; Admin Dose 20 MG; Start 08/21/18 at 21:00 Calcium Carbonate (Oyster Shell Calcium) 1.25 gm DAILY PO Last administered on 08/25/18 08:38; Admin Dose 1.25 GM; Start 08/21/18 at 09:00 Gabapentin (Neurontin) 300 mg TID PO Last administered on 08/25/18 12:15; Admin Dose 300 MG; Start 08/21/18 at 13:00 Fenofibrate (Tricor) 145 mg DAILY PO Last administered on 08/25/18 08:37; Admin Dose 145 MG; Start 08/21/18 at 09:00 Insulin Aspart (Novolog Insulin Pen) NOVOLOG *MILD* ALGORITHM WITH MEALS BEDTIME SC Last administered on 08/25/18 12:11; Admin Dose 2 UNIT; Start 08/21/18 at 18:00 Miscellaneous Information 1 ea NOTE XX ; Start 08/21/18 at 15:00 Glucose (Glutose) 15 gm Q15M PRN PO DECREASED GLUCOSE; Start 08/21/18 at 15:00 Glucose (Glutose) 22.5 gm Q15M PRN PO DECREASED GLUCOSE; Start 08/21/18 at 15:00 Dextrose (D50w Syringe) 25 ml Q15M PRN IV DECREASED GLUCOSE; Start 08/21/18 at 15:00 Dextrose (D50w Syringe) 50 ml Q15M PRN IV DECREASED GLUCOSE; Start 08/21/18 at 15:00 Glucagon (Glucagen) 1 mg Q15M PRN IM DECREASED GLUCOSE; Start 08/21/18 at 15:00 Glucose (Glutose) 15 gm Q15M PRN BUCCAL DECREASED GLUCOSE; Start 08/21/18 at 15:00 Enoxaparin Sodium (Lovenox) 40 mg DAILY SC Last administered on 08/25/18 08:39; Admin Dose 40 MG; Start 08/23/18 at 09:00 Polysaccharide Iron Complex (Niferex-150) 1 cap BID PO Last administered on 08/25/18 08:37; Admin Dose 1 CAP; Start 08/23/18 at 09:00 Linagliptin (Tradjenta) 5 mg DAILY PO Last administered on 08/25/18 08:57; Admin Dose 5 MG; Start 08/24/18 at 12:00 Diagnostic Test (Pha) (Accu-Chek) 1 ea AC MEALS AND BEDTIME XX Last adm inistered on 08/25/18 12:09; Admin Dose 1 EA; Start 08/24/18 at 17:25 Carvedilol (Coreg) 3.125 mg BID PO Last administered on 08/25/18 08:57; Admin Dose 3.125 MG; Start 08/24/18 at 12:00 Losartan Potassium (Cozaar) 25 mg QHS PO Last administered on 08/24/18 20:43; Admin Dose 25 MG; Start 08/24/18 at 21:00 Digoxin (Digoxin) 0.125 mg DAILY@13 PO Last administered on 08/25/18at 12:15; Admin Dose 0.125 MG; Start 08/24/18 at 16:00 Insulin Aspart (Novolog Insulin Pen) 6 unit WITH MEALS SC Last administered on 08/25/18at 12:12; Admin Dose 6 UNIT; Start 08/24/18 at 17:55 Insulin Glargine (Lantus) 14 units HS SC ; Start 08/25/18 at 21:00 Furosemide (Lasix) 40 mg DAILY PO Last administered on 08/25/18at 12:15; Admin Dose 40 MG; Start 08/25/18 at 12:00 Assessment/Plan Hospital Course (Demo Recall) congestive heart failure HTN Cardiomyopathy with left ventricular ejection fraction 30% Breast cancer status post chemotherapy anemia Recommendation: Continue with the Coreg and losartan as tolerated -Antibiotics as per primary team We will cont digoxin as well -Continue aspirin and statin therapy - Thank you for his referral. We will continue to follow along with you until Dr. Mcdermott returns on Sunday VALERI COATES MD [facility] VALERI COATES MD Aug 25, 2018 17:34
[2018-08-25] MEDS: ATORVASTATIN 20 MG TAB PO SCH (20:41)
[2018-08-25] MEDS: LOSARTAN 25 MG TAB PO SCH (20:41)
[2018-08-25] MEDS ORDERED: INSULIN GLARGINE [LANTus] (100 UNITS/ML) SYG SC SCH (21:00)
[2018-08-25] MEDS ORDERED: INSULIN ASPART [NOVOLOG] 3 ML PEN SC ONE (21:00)
[2018-08-25] MEDS: ALBUTEROL/IPRATROPIUM (NEB) 3 ML AMP HHN PRN (23:46)
[2018-08-26] VITALS (11 sets, daily range): BP systolic 97–116; BP diastolic 54–62; PULSE 86–103; RESP 17–20
[2018-08-26] MEDS: ACCU-CHEK XX SCH ×4 (07:25→21:07)
[2018-08-26] MEDS: INSULIN ASPART [NOVOLOG] 3 ML PEN SC SCH ×7 (08:22→20:57)
[2018-08-26] MEDS: POLYSACCHARIDE IRON COMPLEX CAP PO SCH ×2 (08:57→20:52)
[2018-08-26] MEDS: GABAPENTIN 300 MG CAP PO SCH ×3 (08:57→20:52)
[2018-08-26] MEDS: FUROSEMIDE 40 MG TAB PO SCH (08:58)
[2018-08-26] MEDS: FENOFIBRATE 145 MG TAB PO SCH (08:58)
[2018-08-26] MEDS: CALCIUM CARBONATE 1.25 GM TAB PO SCH (08:58)
[2018-08-26] MEDS: ASPIRIN (EC) 81 MG TAB PO SCH (08:58)
[2018-08-26] MEDS: LINAGLIPTIN 5 MG TABLET PO SCH (08:58)
[2018-08-26] MEDS: ENOXAPARIN 40 MG/0.4 ML SYG SC SCH (09:03)
--- NOTE | 2018-08-26 12:17 | CONS ---
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 -We will continue beta-sruthi and CORBIN inhibitor as renal function and blood pressure permits -Patient currently on oral diuretic, titrate as needed -Continue aspirin and statin therapy -DC planning Consultation Date/Type/Reason Admit Date/Time Aug 20, 2018 at 23:52 Initial Consult Date 08/22/18 Type of Consult Cardiology Date/Time of Note DATE: 08/26/18 TIME: 12:16 24 HR Interval Summary Free Text/Dictation Feeling better. Less shortness of breath. No chest pain Exam/Review of Systems Vital Signs Vitals Vital Signs Date Temp Pulse Resp B/P (MAP) Pulse Ox O2 O2 Flow FiO2 Time Delivery Rate 08/26/18 97.6 95 20 104/54 98 11:23 (71) 08/26/18 Nasal 2.0 08:01 Cannula Intake and Output 08/25/18 08/25/18 08/26/18 1515:00 23:00 07:00 IntakeIntake Total 800 ml 240 ml BalanceBalance 800 ml 240 ml Exam Constitutional: alert, oriented (No apparent distress) Respiratory: other (Coarse breath sounds bilaterally, no wheezing) Cardiovascular: regular rate and rhythm (S1-S2 heard) Gastrointestinal: soft, non-tender, bowel sounds Extremities: edema (Trace) Labs Result Diagram: 08/25/18 0552 08/25/18 0552 Results 24hrs Laboratory Tests Test 08/25/18 17:35 08/25/18 20:25 08/26/18 01:15 08/26/18 08:16 Bedside Glucose 272 H 367 H 306 H 215 Medications Medications Current Medications IV Flush (NS 3 ml) 3 ml PER PROTOCOL IV ; Start 08/21/18 at 04:00 Ondansetron HCl (Zofran Inj) 4 mg Q6H PRN IV NAUSEA/VOMITING; Start 08/21/18 at 04:00 Nitroglycerin (Nitroglycerin (Sl Tab) 0.4 Mg) 1 tab Q5M PRN SL .CHEST PAIN; Start 08/21/18 at 04:00 Acetaminophen (Tylenol Tab) 650 mg Q6H PRN PO .PAIN 1-3 OR TEMP Last administered on 08/21/18at 15:33; Admin Dose 650 MG; Start 08/21/18 at 04:00 Albuterol/ Ipratropium (Duoneb) 3 ml Q2H RESP THERAPY PRN HHN SHORTNESS OF BREATH Last administered on 08/25/18at 23:46; Admin Dose 3 ML; Start 08/21/18 at 04:00 Aspirin (Halfprin) 81 mg DAILY PO Last administered on 08/26/18at 08:58; Admin Dose 81 MG; Start 08/21/18 at 09:00 Atorvastatin Calcium (Lipitor) 20 mg DAILY@2100 PO Last administered on 08/25/18 at 20:41; Admin Dose 20 MG; Start 08/21/18 at 21:00 Calcium Carbonate (Oyster Shell Calcium) 1.25 gm DAILY PO Last administered on 08/26/18at 08:58; Admin Dose 1.25 GM; Start 08/21/18 at 09:00 Gabapentin (Neurontin) 300 mg TID PO Last administered on 08/26/18at 08:57; Admin Dose 300 MG; Start 08/21/18 at 13:00 Fenofibrate (Tricor) 145 mg DAILY PO Last administered on 08/26/18 08:58; Admin Dose 145 MG; Start 08/21/18 at 09:00 Insulin Aspart (Novolog Insulin Pen) NOVOLOG *MILD* ALGORITHM WITH MEALS BEDTIME SC Last administered on 08/26/18at 08:22; Admin Dose 2 UNIT; Start 08/21/18 at 18:00 Miscellaneous Information 1 ea NOTE XX ; Start 08/21/18 at 15:00 Glucose (Glutose) 15 gm Q15M PRN PO DECREASED GLUCOSE; Start 08/21/18 at 15:00 Glucose (Glutose) 22.5 gm Q15M PRN PO DECREASED GLUCOSE; Start 08/21/18 at 15:00 Dextrose (D50w Syringe) 25 ml Q15M PRN IV DECREASED GLUCOSE; Start 08/21/18 at 15:00 Dextrose (D50w Syringe) 50 ml Q15M PRN IV DECREASED GLUCOSE; Start 08/21/18 at 15:00 Glucagon (Glucagen) 1 mg Q15M PRN IM DECREASED GLUCOSE; Start 08/21/18 at 15:00 Glucose (Glutose) 15 gm Q15M PRN BUCCAL DECREASED GLUCOSE; Start 08/21/18 at 15:00 Enoxaparin Sodium (Lovenox) 40 mg DAILY SC Last administered on 08/26/18 09:03; Admin Dose 40 MG; Start 08/23/18 at 09:00 Polysaccharide Iron Complex (Niferex-150) 1 cap BID PO Last administered on 08/26/18 08:57; Admin Dose 1 CAP; Start 08/23/18 at 09:00 Linagliptin (Tradjenta) 5 mg DAILY PO Last administered on 08/26/18 08:58; Admin Dose 5 MG; Start 08/24/18 at 12:00 Diagnostic Test (Pha) (Accu-Chek) 1 ea AC MEALS AND BEDTIME XX Last administered on 08/25/18 21:15; Admin Dose 1 EA; Start 08/24/18 at 17:25 Carvedilol (Coreg) 3.125 mg BID PO Last administered on 08/26/18 08:58; Admin Dose 3.125 MG; Start 08/24/18 at 12:00 Losartan Potassium (Cozaar) 25 mg QHS PO Last administered on 08/25/18 20:41; Admin Dose 25 MG; Start 08/24/18 at 21:00 Digoxin (Digoxin) 0.125 mg DAILY@13 PO Last administered on 08/25/18 12:15; Admin Dose 0.125 MG; Start 08/24/18 at 16:00 Insulin Aspart (Novolog Insulin Pen) 6 unit WITH MEALS SC Last administered on 08/26/18 08:22; Admin Dose 6 UNIT; Start 08/24/18 at 17:55 Insulin Glargine (Lantus) 14 units HS SC Last administered on 08/25/18 20:49; Admin Dose 14 UNITS; Start 08/25/18 at 21:00 Furosemide (Lasix) 40 mg DAILY PO Last administered on 08/26/18 08:58; Admin Dose 40 MG; Start 08/25/18 at 12:00 Lucas Otto DO Aug 26, 2018 12:17
[2018-08-26] MEDS: DIGOXIN 0.125 MG TAB PO SCH (13:19)
--- NOTE | 2018-08-26 14:32 | PN ---
Date/Time of Note Date/Time of Note DATE: 08/26/18 TIME: 14:27 Assessment/Plan VTE Prophylaxis Risk score (from Ns)>0 risk: 6 SCD applied (from Ns): Yes Pharmacological prophylaxis: LMWH Lines/Catheters IV Catheter Type (from Nrsg): ELLI CATH Urinary Cath still in place: No Assessment/Plan Assessment/Plan 1. CHF, acute on chronic, systolic with LVEF 30%, on coreg, losartan and lasix 2. DM, increase lantus for better BG control 3. HTN, controlled 4. Breast cancer status post chemotherapy 5. 0.5 cm pulmonary nodule in the right middle lobe, follow up with PCP to repeat CT DVT prophylaxis: lovenox Result Diagram: 08/25/18 0552 08/25/18 0552 Results 24hrs Laboratory Tests Test 08/25/18 17:35 08/25/18 20:25 08/26/18 01:15 08/26/18 08:16 Bedside Glucose 272 H 367 H 306 H 215 Test 08/26/18 12:22 Bedside Glucose 268 H Subjective 24 Hr Interval Summary Free Text/Dictation no respiratory distress Exam/Review of Systems Exam Vitals Vital Signs Date Temp Pulse Resp B/P (MAP) Pulse Ox O2 O2 Flow FiO2 Time Delivery Rate 08/26/18 93 12:01 08/26/18 97.6 20 104/54 98 11:23 (71) 08/26/18 Nasal 2.0 08:01 Cannula Intake and Output 08/25/18 08/25/18 08/26/18 1515:00 23:00 07:00 IntakeIntake Total 800 ml 240 ml BalanceBalance 800 ml 240 ml Constitutional: alert, oriented, well developed Psych: no complaints, nl mood/affect Head: normocephalic, atraumatic Eyes: nl conjunctiva, EOMI, nl lids ENMT: nl external ears & nose, nl lips & teeth, nl nasal mucosa & septum Neck: supple, non-tender Respiratory: clear to auscultation, normal air movement; No congested cough, No crackles/rales, No diminished breath sounds, No intercostal retraction, No labored breathing, No respirations, No tactile fremitus, No wheezing, No other Cardiovascular: regular rate and rhythm, nl pulses Gastrointestinal: soft, nl liver, spleen, non-tender Musculoskeletal: nl extremities to inspection Extremities: normal pulses; No calf tenderness, No cyanosis, No clubbing, No edema, No pitting pedal edema, No palpable cord, No tenderness, No other 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: [employer] II-XII intact, nl mental status, nl speech, nl strength Results Results 24hrs Laboratory Tests Test 08/25/18 17:35 08/25/18 20:25 08/26/18 01:15 08/26/18 08:16 Bedside Glucose 272 H 367 H 306 H 215 Test 08/26/18 12:22 Bedside Glucose 268 H Medications Medication Current Medications IV Flush (NS 3 ml) 3 ml PER PROTOCOL IV ; Start 08/21/18 at 04:00 Ondansetron HCl (Zofran Inj) 4 mg Q6H PRN IV NAUSEA/VOMITING; Start 08/21/18 at 04:00 Nitroglycerin (Nitroglycerin (Sl Tab) 0.4 Mg) 1 tab Q5M PRN SL .CHEST PAIN; Start 08/21/18 at 04:00 Acetaminophen (Tylenol Tab) 650 mg Q6H PRN PO .PAIN 1-3 OR TEMP Last administered on 08/21/18 15:33; Admin Dose 650 MG; Start 08/21/18 at 04:00 Albuterol/ Ipratropium (Duoneb) 3 ml Q2H RESP THERAPY PRN HHN SHORTNESS OF BREATH Last administered on 08/25/18 23:46; Admin Dose 3 ML; Start 08/21/18 at 04:00 Aspirin (Halfprin) 81 mg DAILY PO Last administered on 08/26/18 08:58; Admin Dose 81 MG; Start 08/21/18 at 09:00 Atorvastatin Calcium (Lipitor) 20 mg DAILY@2100 PO Last administered on 08/25/18 20:41; Admin Dose 20 MG; Start 08/21/18 at 21:00 Calcium Carbonate (Oyster Shell Calcium) 1.25 gm DAILY PO Last administered on 08/26/18 08:58; Admin Dose 1.25 GM; Start 08/21/18 at 09:00 Gabapentin (Neurontin) 300 mg TID PO Last administered on 08/26/18 13:19; Admin Dose 300 MG; Start 08/21/18 at 13:00 Fenofibrate (Tricor) 145 mg DAILY PO Last administered on 08/26/18 08:58; Admin Dose 145 MG; Start 08/21/18 at 09:00 Insulin Aspart (Novolog Insulin Pen) NOVOLOG *MILD* ALGORITHM WITH MEALS BEDTIME SC Last administered on 08/26/18 12:27; Admin Dose 4 UNIT; Start at 18:00 Miscellaneous Information 1 ea NOTE XX ; Start 08/21/18 at 15:00 Glucose (Glutose) 15 gm Q15M PRN PO DECREASED GLUCOSE; Start 08/21/18 at 15:00 Glucose (Glutose) 22.5 gm Q15M PRN PO DECREASED GLUCOSE; Start 08/21/18 at 15:00 Dextrose (D50w Syringe) 25 ml Q15M PRN IV DECREASED GLUCOSE; Start 08/21/18 at 15:00 Dextrose (D50w Syringe) 50 ml Q15M PRN IV DECREASED GLUCOSE; Start 08/21/18 at 15:00 Glucagon (Glucagen) 1 mg Q15M PRN IM DECREASED GLUCOSE; Start 08/21/18 at 15:00 Glucose (Glutose) 15 gm Q15M PRN BUCCAL DECREASED GLUCOSE; Start 08/21/18 at 15:00 Enoxaparin Sodium (Lovenox) 40 mg DAILY SC Last administered on 08/26/18 09:03; Admin Dose 40 MG; Start 08/23/18 at 09:00 Polysaccharide Iron Complex (Niferex-150) 1 cap BID PO Last administered on 08/26/18 08:57; Admin Dose 1 CAP; Start 08/23/18 at 09:00 Linagliptin (Tradjenta) 5 mg DAILY PO Last administered on 08/26/18 08:58; Admin Dose 5 MG; Start 08/24/18 at 12:00 Diagnostic Test (Pha) (Accu-Chek) 1 ea AC MEALS AND BEDTIME XX Last administered on 08/25/18 21:15; Admin Dose 1 EA; Start 08/24/18 at 17:25 Carvedilol (Coreg) 3.125 mg BID PO Last administered on 08/26/18 08:58; Admin Dose 3.125 MG; Start 08/24/18 at 12:00 Losartan Potassium (Cozaar) 25 mg QHS PO Last administered on 08/25/18 20:41; Admin Dose 25 MG; Start 08/24/18 at 21:00 Digoxin (Digoxin) 0.125 mg DAILY@13 PO Last administered on 08/26/18at 13:19; Admin Dose 0.125 MG; Start 08/24/18 at 16:00 Insulin Aspart (Novolog Insulin Pen) 6 unit WITH MEALS SC Last administered on 08/26/18at 12:27; Admin Dose 6 UNIT; Start 08/24/18 at 17:55 Insulin Glargine (Lantus) 14 units HS SC Last administered on 08/25/18at 20:49; Admin Dose 14 UNITS; Start 08/25/18 at 21:00 Furosemide (Lasix) 40 mg DAILY PO Last administered on 08/26/18at 08:58; Admin Dose 40 MG; Start 08/25/18 at 12:00 MARIELY HERRERA MD Aug 26, 2018 14:32
[2018-08-26] MEDS ORDERED: INSULIN GLARGINE [LANTus] (100 UNITS/ML) SYG SC ONE (18:30)
[2018-08-26] MEDS: ATORVASTATIN 20 MG TAB PO SCH (20:52)
[2018-08-26] MEDS: LOSARTAN 25 MG TAB PO SCH (20:52)
[2018-08-26] MEDS ORDERED: INSULIN GLARGINE [LANTus] (100 UNITS/ML) SYG SC SCH (21:00)
[2018-08-27] VITALS (12 sets, daily range): BP systolic 83–116; BP diastolic 50–82; PULSE 82–96; RESP 18–20
[2018-08-27] MEDS: ACCU-CHEK XX SCH ×4 (07:58→21:16)
[2018-08-27] MEDS: FENOFIBRATE 145 MG TAB PO SCH (08:07)
[2018-08-27] MEDS: CALCIUM CARBONATE 1.25 GM TAB PO SCH (08:07)
[2018-08-27] MEDS: FUROSEMIDE 40 MG TAB PO SCH (08:08)
[2018-08-27] MEDS: ASPIRIN (EC) 81 MG TAB PO SCH (08:08)
[2018-08-27] MEDS: GABAPENTIN 300 MG CAP PO SCH ×3 (08:08→21:13)
[2018-08-27] MEDS: INSULIN ASPART [NOVOLOG] 3 ML PEN SC SCH ×7 (08:15→21:25)
[2018-08-27] MEDS: ENOXAPARIN 40 MG/0.4 ML SYG SC SCH (08:19)
[2018-08-27] MEDS: POLYSACCHARIDE IRON COMPLEX CAP PO SCH ×2 (08:25→21:14)
[2018-08-27] MEDS: LINAGLIPTIN 5 MG TABLET PO SCH (08:25)
[2018-08-27] MEDS: DIGOXIN 0.125 MG TAB PO SCH (12:49)
--- NOTE | 2018-08-27 15:28 | PN ---
Date/Time of Note Date/Time of Note DATE: 08/27/18 TIME: 15:19 Assessment/Plan VTE Prophylaxis Risk score (from Ns)>0 risk: 5 SCD applied (from Nsg): Yes Pharmacological prophylaxis: LMWH Lines/Catheters IV Catheter Type (from Nrs): [id number] Urinary Cath still in place: No Assessment/Plan Assessment/Plan 1. CHF, acute on chronic, systolic with LVEF 30%, on coreg, digoxin and lasix, hold losartan for high K 2. DM, increase lantus and pre-meal insulin 3. HTN, controlled 4. Breast cancer status post chemotherapy 5. 0.5 cm pulmonary nodule in the right middle lobe, follow up with PCP to repeat CT 6. DVT prophylaxis: lovenox 7. Hyperkalemia, hold losartan 8. I talked to the son and given updates, september d/c home tomorrow Result Diagram: 08/27/18 0654 08/27/18 0654 Results 24hrs Laboratory Tests Test 08/26/18 17:39 08/26/18 18:08 08/26/18 18:17 08/26/18 20:39 Bedside Glucose 408 *H 403 *H 434 *H Glucose Level 406 #*H Test 08/27/18 06:54 08/27/18 07:56 08/27/18 11:48 White Blood Count 6.5 Red Blood Count 3.75 L Hemoglobin 10.8 L Hematocrit 35.3 L Mean Corpuscular Volume 94.1 Mean Corpuscular 28.8 L Hemoglobin Mean Corpuscular 30.6 L Hemoglobin Concent Red Cell Distribution 18.5 H Width Platelet Count 260 Mean Platelet Volume 10.1 Immature Granulocytes % 1.200 H Neutrophils % 64.6 Lymphocytes % 19.4 Monocytes % 11.0 Eosinophils % 3.3 Basophils % 0.5 Nucleated Red Blood 0.0 Cells % Immature Granulocytes # 0.080 H Neutrophils # 4.2 Lymphocytes # 1.3 Monocytes # 0.7 Eosinophils # 0.2 Basophils # 0.0 Nucleated Red Blood 0.0 Cells # Sodium Level 142 Potassium Level 5.2 H Chloride Level 106 Carbon Dioxide Level 28 Anion Gap 8 Blood Urea Nitrogen 25 H Creatinine 0.74 Est Glomerular Filtrat Rate mL/min Glucose Level 208 # Calcium Level 9.3 Bedside Glucose 208 315 H Subjective 24 Hr Interval Summary Free Text/Dictation no respiratory distress, no chest pain Exam/Review of Systems Exam Vitals Vital Signs Date Temp Pulse Resp B/P (MAP) Pulse Ox O2 O2 Flow FiO2 Time Delivery Rate 08/27/18 97.9 94 20 106/60 99 15:12 (75) 08/27/18 Nasal 2.0 09:43 Cannula Intake and Output 08/26/18 08/26/18 08/27/18 1515:00 23:00 07:00 IntakeIntake Total 750 ml BalanceBalance 750 ml Constitutional: alert, oriented, well developed Psych: no complaints, nl mood/affect Head: normocephalic, atraumatic Eyes: nl conjunctiva, EOMI, nl lids, PERRL ENMT: nl external ears & nose, nl lips & teeth, nl nasal mucosa & septum, mucosa pink and moist Neck: supple, non-tender Respiratory: clear to auscultation, normal air movement; No congested cough, No crackles/rales, No diminished breath sounds, No intercostal retraction, No labored breathing, No respirations, No tactile fremitus, No wheezing, No other Cardiovascular: regular rate and rhythm, nl pulses Gastrointestinal: soft, nl liver, spleen, non-tender Musculoskeletal: nl extremities to inspection Extremities: normal pulses; No calf tenderness, No cyanosis, No clubbing, No edema, No pitting pedal edema, No palpable cord, No tenderness, No other 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: 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[employer] RU[employer]ER II-XII 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, nl mental status, nl speech, nl strength Results Results 24hrs Laboratory Tests Test 08/26/18 17:39 08/26/18 18:08 08/26/18 18:17 08/26/18 20:39 Bedside Glucose 408 *H 403 *H 434 *H Glucose Level 406 #*H Test 08/27/18 06:54 08/27/18 07:56 08/27/18 11:48 White Blood Count 6.5 Red Blood Count 3.75 L Hemoglobin 10.8 L Hematocrit 35.3 L Mean Corpuscular Volume 94.1 Mean Corpuscular 28.8 L Hemoglobin Mean Corpuscular 30.6 L Hemoglobin Concent Red Cell Distribution 18.5 H Width Platelet Count 260 Mean Platelet Volume 10.1 Immature Granulocytes % 1.200 H Neutrophils % 64.6 Lymphocytes % 19.4 Monocytes % 11.0 Eosinophils % 3.3 Basophils % 0.5 Nucleated Red Blood 0.0 Cells % Immature Granulocytes # 0.080 H Neutrophils # 4.2 Lymphocytes # 1.3 Monocytes # 0.7 Eosinophils # 0.2 Basophils # 0.0 Nucleated Red Blood 0.0 Cells # Sodium Level 142 Potassium Level 5.2 H Chloride Level 106 Carbon Dioxide Level 28 Anion Gap 8 Blood Urea Nitrogen 25 H Creatinine 0.74 Est Glomerular Filtrat Rate mL/min Glucose Level 208 # Calcium Level 9.3 Bedside Glucose 208 315 H Medications Medication Current Medications IV Flush (NS 3 ml) 3 ml PER PROTOCOL IV ; Start 08/21/18 at 04:00 Ondansetron HCl (Zofran Inj) 4 mg Q6H PRN IV NAUSEA/VOMITING; Start 08/21/18 at 04:00 Nitroglycerin (Nitroglycerin (Sl Tab) 0.4 Mg) 1 tab Q5M PRN SL .CHEST PAIN; Start 08/21/18 at 04:00 Acetaminophen (Tylenol Tab) 650 mg Q6H PRN PO .PAIN 1-3 OR TEMP Last administered on 08/21/18 15:33; Admin Dose 650 MG; Start 08/21/18 at 04:00 Albuterol/ Ipratropium (Duoneb) 3 ml Q2H RESP THERAPY PRN HHN SHORTNESS OF BREATH Last administered on 08/25/18 23:46; Admin Dose 3 ML; Start 08/21/18 at 04:00 Aspirin (Halfprin) 81 mg DAILY PO Last administered on 08/27/18 08:08; Admin Dose 81 MG; Start 08/21/18 at 09:00 Atorvastatin Calcium (Lipitor) 20 mg DAILY@2100 PO Last administered on 08/26/18 20:52; Admin Dose 20 MG; Start 08/21/18 at 21:00 Calcium Carbonate (Oyster Shell Calcium) 1.25 gm DAILY PO Last administered on 08/27/18 08:07; Admin Dose 1.25 GM; Start 08/21/18 at 09:00 Gabapentin (Neurontin) 300 mg TID PO Last administered on 08/27/18 12:49; Admin Dose 300 MG; Start 08/21/18 at 13:00 Fenofibrate (Tricor) 145 mg DAILY PO Last administered on 08/27/18 08:07; Admin Dose 145 MG; Start 08/21/18 at 09:00 Insulin Aspart (Novolog Insulin Pen) NOVOLOG *MILD* ALGORITHM WITH MEALS BEDTIME SC Last administered on 08/27/18 11:55; Admin Dose 5 UNIT; Start 08/21/18 at 18:00 Miscellaneous Information 1 ea NOTE XX ; Start 08/21/18 at 15:00 Glucose (Glutose) 15 gm Q15M PRN PO DECREASED GLUCOSE; Start 08/21/18 at 15:00 Glucose (Glutose) 22.5 gm Q15M PRN PO DECREASED GLUCOSE; Start 08/21/18 at 15: 00 Dextrose (D50w Syringe) 25 ml Q15M PRN IV DECREASED GLUCOSE; Start 08/21/18 at 15:00 Dextrose (D50w Syringe) 50 ml Q15M PRN IV DECREASED GLUCOSE; Start 08/21/18 at 15:00 Glucagon (Glucagen) 1 mg Q15M PRN IM DECREASED GLUCOSE; Start 08/21/18 at 15:00 Glucose (Glutose) 15 gm Q15M PRN BUCCAL DECREASED GLUCOSE; Start 08/21/18 at 15:00 Enoxaparin Sodium (Lovenox) 40 mg DAILY SC Last administered on 08/27/18 08:19; Admin Dose 40 MG; Start 08/23/18 at 09:00 Polysaccharide Iron Complex (Niferex-150) 1 cap BID PO Last administered on 08/27/18 08:25; Admin Dose 1 CAP; Start 08/23/18 at 09:00 Linagliptin (Tradjenta) 5 mg DAILY PO Last administered on 08/27/18 08:25; Admin Dose 5 MG; Start 08/24/18 at 12:00 Diagnostic Test (Pha) (Accu-Chek) 1 ea AC MEALS AND BEDTIME XX Last administered on 08/27/18 11:56; Admin Dose 1 EA; Start 08/24/18 at 17:25 Carvedilol (Coreg) 3.125 mg BID PO Last administered on 08/27/18 08:08; Admin Dose 3.125 MG; Start 08/24/18 at 12:00 Losartan Potassium (Cozaar) 25 mg QHS PO Last administered on 08/26/18at 20:52; Admin Dose 25 MG; Start 08/24/18 at 21:00 Digoxin (Digoxin) 0.125 mg DAILY@13 PO Last administered on 08/27/18at 12:49; Admin Dose 0.125 MG; Start 08/24/18 at 16:00 Furosemide (Lasix) 40 mg DAILY PO Last administered on 08/27/18at 08:08; Admin Dose 40 MG; Start 08/25/18 at 12:00 Insulin Aspart (Novolog Insulin Pen) 8 unit WITH MEALS SC ; Start 08/27/18 at 17:55; Status UNV Insulin Glargine (Lantus) 24 units HS SC ; Start 08/27/18 at 21:00; Status UNV MARIELY HERRERA MD Aug 27, 2018 15:28
--- NOTE | 2018-08-27 15:39 | CONS ---
Consultation Date/Type/Reason Admit Date/Time Aug 20, 2018 at 23:52 Date/Time of Note DATE: 08/27/18 TIME: 15:39 Hx of Present Illness Postdated note on patient. I was called to see patient in the emergency room when patient's son arrived and was upset that his mother was not admitted to the hospital and there was no bryan gnosis initially made. At that time patient was very comfortable on examination she did present with history of fluid overload congestive heart failure she has been treated with diuretics oxygen, was diuresing well. Son did not speak very good [place] but could tell me that she had a history of breast cancer her oncologist is not in this area. Questionable history of coronary heart disease. She had received chemotherapy approximately 2 weeks prior to presentation. She was not complaining of nausea vomiting chest pain palpitations dizziness diplopia disorientation, denies syncopal episodes. I had a discussion with patient's son explained to him that there was no immediate need that patient should be have any type of invasive cardiac workup. I did assure him that patient would be seen by primary care physician and cardiology and oncology if necessary. Answered all his questions at that time but I did not feel the necessity to address any further questions in regards to prognosis, CODE STATUS, level of care. We will be available in the event that there is any necessity for ongoing palliative care discussions with patient's family. Past Medical History Home Meds Reported Medications Insulin Glargine,Hum.rec.anlog (Basaglar Kwikpen U-100) 100 Unit/1 Ml Insuln.pen, 40 UNIT SQ QHS 08/21/18 Sitagliptin Phos/Metformin HCl (Janumet 50-1,000 mg Tablet) 1 Each Tablet, 1 TAB PO BID for 30 Days, #60 08/21/18 Metoprolol Succinate* (Toprol XL*) 25 Mg Tab.sr.24h, 25 MG PO DAILY for 30 Days, #30 08/21/18 Amitriptyline Hcl* (Amitriptyline Hcl*) 100 Mg Tablet, 100 MG PO DAILY for 30 Days, #30 08/21/18 Fenofibrate, Micronized (Fenofibrate) 134 Mg Capsule, 134 MG PO DAILY for 30 Days, #30 08/21/18 Atorvastatin Calcium (Atorvastatin Calcium) 20 Mg Tablet, 20 MG PO DAILY for 30 Days, #30 08/21/18 Losartan-Hydrochlorothiazide (Losartan-HCTZ) 50-12.5 Mg Tab, 1 TAB PO DAILY for 30 Days, #30 08/21/18 Gabapentin* (Gabapentin*) 300 Mg Capsule, 300 MG PO TID for 30 Days, #90 08/21/18 Aspirin* (Aspirin* EC) 81 Mg Tablet.dr, 81 MG PO DAILY for 30 Days, #30 08/21/18 Ergocalciferol (Vitamin D2) (VITAMIN D2) 50,000 Unit Capsule, 95664 MG PO Q7D for 28 Days, #4 08/21/18 Calcium Carbonate (Oysco-500) 500 Mg Tablet, 500 MG PO DAILY for 30 Days, #60 08/21/18 Enalapril Maleate* (Enalapril Maleate*) 5 Mg Tablet, 5 MG PO DAILY, TAB 11/25/15 Calcium Carbonate* (Os-Cody 500*) 1 Tab Tablet, 1 TAB PO BID, TAB 11/25/15 Alendronate Sodium* (Fosamax*) 70 Mg Tablet, 70 MG PO Q7D PRN for QFRI, #4 TAB 11/25/15 Discontinued Reported Medications Aspirin (Low Dose Aspirin) 81 Mg Tablet.dr, 81 MG PO DAILY, #30 TAB 11/25/15 Sitagliptin* (Januvia*) 50 Mg Tablet, 50 MG PO DAILY, #30 TAB 11/25/15 Discontinued Scripts Metformin* (Glucophage*) 1,000 Mg Tablet, 1000 MG PO BID, #60 TAB Prov:JANESSA MEDINA MD 11/25/15 Medications Current Medications IV Flush (NS 3 ml) 3 ml PER PROTOCOL IV ; Start 08/21/18 at 04:00 Ondansetron HCl (Zofran Inj) 4 mg Q6H PRN IV NAUSEA/VOMITING; Start 08/21/18 at 04:00 Nitroglycerin (Nitroglycerin (Sl Tab) 0.4 Mg) 1 tab Q5M PRN SL .CHEST PAIN; Start 08/21/18 at 04:00 Acetaminophen (Tylenol Tab) 650 mg Q6H PRN PO .PAIN 1-3 OR TEMP Last administered on 08/21/18at 15:33; Admin Dose 650 MG; Start 08/21/18 at 04:00 Albuterol/ Ipratropium (Duoneb) 3 ml Q2H RESP THERAPY PRN HHN SHORTNESS OF BREATH Last administered on 08/25/18 23:46; Admin Dose 3 ML; Start 08/21/18 at 04:00 Aspirin (Halfprin) 81 mg DAILY PO Last administered on 08/27/18 08:08; Admin Dose 81 MG; Start 08/21/18 at 09:00 Atorvastatin Calcium (Lipitor) 20 mg DAILY@2100 PO Last administered on 08/26/18 20:52; Admin Dose 20 MG; Start 08/21/18 at 21:00 Calcium Carbonate (Oyster Shell Calcium) 1.25 gm DAILY PO Last administered on 08/27/18 08:07; Admin Dose 1.25 GM; Start 08/21/18 at 09:00 Gabapentin (Neurontin) 300 mg TID PO Last administered on 08/27/18 12:49; Admin Dose 300 MG; Start 08/21/18 at 13:00 Fenofibrate (Tricor) 145 mg DAILY PO Last administered on 08/27/18 08:07; Admin Dose 145 MG; Start 08/21/18 at 09:00 Insulin Aspart (Novolog Insulin Pen) NOVOLOG *MILD* ALGORITHM WITH MEALS BEDTIME SC Last administered on 08/27/18 11:55; Admin Dose 5 UNIT; Start 08/21/18 at 18:00 Miscellaneous Information 1 ea NOTE XX ; Start 08/21/18 at 15:00 Glucose (Glutose) 15 gm Q15M PRN PO DECREASED GLUCOSE; Start 08/21/18 at 15:00 Glucose (Glutose) 22.5 gm Q15M PRN PO DECREASED GLUCOSE; Start 08/21/18 at 15:00 Dextrose (D50w Syringe) 25 ml Q15M PRN IV DECREASED GLUCOSE; Start 08/21/18 at 15:00 Dextrose (D50w Syringe) 50 ml Q15M PRN IV DECREASED GLUCOSE; Start 08/21/18 at 15:00 Glucagon (Glucagen) 1 mg Q15M PRN IM DECREASED GLUCOSE; Start 08/21/18 at 15:00 Glucose (Glutose) 15 gm Q15M PRN BUCCAL DECREASED GLUCOSE; Start 08/21/18 at 15:00 Enoxaparin Sodium (Lovenox) 40 mg DAILY SC Last administered on 08/27/18 08:19; Admin Dose 40 MG; Start 08/23/18 at 09:00 Polysaccharide Iron Complex (Niferex-150) 1 cap BID PO Last administered on 08/27/18 08:25; Admin Dose 1 CAP; Start 08/23/18 at 09:00 Linagliptin (Tradjenta) 5 mg DAILY PO Last administered on 08/27/18 08:25; Admin Dose 5 MG; Start 08/24/18 at 12:00 Diagnostic Test (Pha) (Accu-Chek) 1 ea AC MEALS AND BEDTIME XX Last administered on 08/27/18at 11:56; Admin Dose 1 EA; Start 08/24/18 at 17:25 Carvedilol (Coreg) 3.125 mg BID PO Last administered on 08/27/18 08:08; Admin Dose 3.125 MG; Start 08/24/18 at 12:00 Digoxin (Digoxin) 0.125 mg DAILY@13 PO Last administered on 08/27/18 12:49; Admin Dose 0.125 MG; Start 08/24/18 at 16:00 Furosemide (Lasix) 40 mg DAILY PO Last administered on 08/27/18 08:08; Admin Dose 40 MG; Start 08/25/18 at 12:00 Insulin Aspart (Novolog Insulin Pen) 8 unit WITH MEALS SC ; Start 08/27/18 at 17:55 Insulin Glargine (Lantus) 24 units HS SC ; Start 08/27/18 at 21:00 Allergies: Coded Allergies: No Known Allergy (Unverified , 08/21/18) Social History Smoking Status: Never smoker Exam/Review of Systems Exam Vitals Vital Signs Date Temp Pulse Resp B/P (MAP) Pulse Ox O2 O2 Flow FiO2 Time Delivery Rate 08/27/18 97.9 94 20 106/60 99 15:12 (75) 08/27/18 Nasal 2.0 09:43 Cannula Intake and Output 08/26/18 08/26/18 08/27/18 1515:00 23:00 07:00 IntakeIntake Total 750 ml BalanceBalance 750 ml Results Result Diagram: 08/27/18 0654 08/27/18 0654 Results 24hrs Laboratory Tests Test 08/26/18 17:39 08/26/18 18:08 08/26/18 18:17 08/26/18 20:39 Bedside Glucose 408 *H 403 *H 434 *H Glucose Level 406 #*H Test 08/27/18 06:54 08/27/18 07:56 08/27/18 11:48 White Blood Count 6.5 Red Blood Count 3.75 L Hemoglobin 10.8 L Hematocrit 35.3 L Mean Corpuscular Volume 94.1 Mean Corpuscular 28.8 L Hemoglobin Mean Corpuscular 30.6 L Hemoglobin Concent Red Cell Distribution 18.5 H Width Platelet Count 260 Mean Platelet Volume 10.1 Immature Granulocytes % 1.200 H Neutrophils % 64.6 Lymphocytes % 19.4 Monocytes % 11.0 Eosinophils % 3.3 Basophils % 0.5 Nucleated Red Blood 0.0 Cells % Immature Granulocytes # 0.080 H Neutrophils # 4.2 Lymphocytes # 1.3 Monocytes # 0.7 Eosinophils # 0.2 Basophils # 0.0 Nucleated Red Blood 0.0 Cells # Sodium Level 142 Potassium Level 5.2 H Chloride Level 106 Carbon Dioxide Level 28 Anion Gap 8 Blood Urea Nitrogen 25 H Creatinine 0.74 Est Glomerular Filtrat Rate mL/min Glucose Level 208 # Calcium Level 9.3 Bedside Glucose 208 315 H Medications Medication Current Medications IV Flush (NS 3 ml) 3 ml PER PROTOCOL IV ; Start 08/21/18 at 04:00 Ondansetron HCl (Zofran Inj) 4 mg Q6H PRN IV NAUSEA/VOMITING; Start 08/21/18 at 04:00 Nitroglycerin (Nitroglycerin (Sl Tab) 0.4 Mg) 1 tab Q5M PRN SL .CHEST PAIN; Start 08/21/18 at 04:00 Acetaminophen (Tylenol Tab) 650 mg Q6H PRN PO .PAIN 1-3 OR TEMP Last administered on 08/21/18at 15:33; Admin Dose 650 MG; Start 08/21/18 at 04:00 Albuterol/ Ipratropium (Duoneb) 3 ml Q2H RESP THERAPY PRN HHN SHORTNESS OF BREATH Last administered on 08/25/18at 23:46; Admin Dose 3 ML; Start 08/21/18 at 04:00 Aspirin (Halfprin) 81 mg DAILY PO Last administered on 08/27/18 08:08; Admin Dose 81 MG; Start 08/21/18 at 09:00 Atorvastatin Calcium (Lipitor) 20 mg DAILY@2100 PO Last administered on 08/26/18at 20:52; Admin Dose 20 MG; Start 08/21/18 at 21:00 Calcium Carbonate (Oyster Shell Calcium) 1.25 gm DAILY PO Last administered on 08/27/18 08:07; Admin Dose 1.25 GM; Start 08/21/18 at 09:00 Gabapentin (Neurontin) 300 mg TID PO Last administered on 08/27/18 12:49; Admin Dose 300 MG; Start 08/21/18 at 13:00 Fenofibrate (Tricor) 145 mg DAILY PO Last administered on 08/27/18 08:07; Admin Dose 145 MG; Start 08/21/18 at 09:00 Insulin Aspart (Novolog Insulin Pen) NOVOLOG *MILD* ALGORITHM WITH MEALS BEDTIME SC Last administered on 08/27/18 11:55; Admin Dose 5 UNIT; Start 08/21/18 at 18:00 Miscellaneous Information 1 ea NOTE XX ; Start 08/21/18 at 15:00 Glucose (Glutose) 15 gm Q15M PRN PO DECREASED GLUCOSE; Start 08/21/18 at 15:00 Glucose (Glutose) 22.5 gm Q15M PRN PO DECREASED GLUCOSE; Start 08/21/18 at 15:00 Dextrose (D50w Syringe) 25 ml Q15M PRN IV DECREASED GLUCOSE; Start 08/21/18 at 15:00 Dextrose (D50w Syringe) 50 ml Q15M PRN IV DECREASED GLUCOSE; Start 08/21/18 at 15:00 Glucagon (Glucagen) 1 mg Q15M PRN IM DECREASED GLUCOSE; Start 08/21/18 at 15:00 Glucose (Glutose) 15 gm Q15M PRN BUCCAL DECREASED GLUCOSE; Start 08/21/18 at 15:00 Enoxaparin Sodium (Lovenox) 40 mg DAILY SC Last administered on 08/27/18 08:19; Admin Dose 40 MG; Start 08/23/18 at 09:00 Polysaccharide Iron Complex (Niferex-150) 1 cap BID PO Last administered on 08/27/18 08:25; Admin Dose 1 CAP; Start 08/23/18 at 09:00 Linagliptin (Tradjenta) 5 mg DAILY PO Last administered on 08/27/18 08:25; A dmin Dose 5 MG; Start 08/24/18 at 12:00 Diagnostic Test (Pha) (Accu-Chek) 1 ea AC MEALS AND BEDTIME XX Last administered on 08/27/18at 11:56; Admin Dose 1 EA; Start 08/24/18 at 17:25 Carvedilol (Coreg) 3.125 mg BID PO Last administered on 08/27/18at 08:08; Admin Dose 3.125 MG; Start 08/24/18 at 12:00 Digoxin (Digoxin) 0.125 mg DAILY@13 PO Last administered on 08/27/18at 12:49; Admin Dose 0.125 MG; Start 08/24/18 at 16:00 Furosemide (Lasix) 40 mg DAILY PO Last administered on 08/27/18at 08:08; Admin Dose 40 MG; Start 08/25/18 at 12:00 Insulin Aspart (Novolog Insulin Pen) 8 unit WITH MEALS SC ; Start 08/27/18 at 17:55 Insulin Glargine (Lantus) 24 units HS SC ; Start 08/27/18 at 21:00 ALEXANDRA HOWE Aug 27, 2018 15:39
[2018-08-27] MEDS ORDERED: INSULIN GLARGINE [LANTus] (100 UNITS/ML) SYG SC SCH (21:00)
[2018-08-27] MEDS: ATORVASTATIN 20 MG TAB PO SCH (21:13)
--- NOTE | 2018-08-27 21:35 | CONS ---
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 -We will continue beta-sruthi, ARB on hold secondary to hyperK -Patient currently on oral diuretic, titrate as needed -Continue aspirin and statin therapy -DC planning Consultation Date/Type/Reason Admit Date/Time Aug 20, 2018 at 23:52 Initial Consult Date 08/22/18 Type of Consult Cardiology Date/Time of Note DATE: 08/27/18 TIME: 21:34 24 HR Interval Summary Free Text/Dictation sob better, no cp Exam/Review of Systems Vital Signs Vitals Vital Signs Date Temp Pulse Resp B/P (MAP) Pulse Ox O2 O2 Flow FiO2 Time Delivery Rate 08/27/18 95 20:14 08/27/18 97.9 20 106/64 98 20:00 (78) 08/27/18 2.0 17:30 08/27/18 Nasal 09:43 Cannula Intake and Output 08/26/18 08/26/18 08/27/18 1515:00 23:00 07:00 IntakeIntake Total 750 ml BalanceBalance 750 ml Exam Constitutional: alert, oriented Head: normocephalic Respiratory: other (course bs, no wheeze) Cardiovascular: regular rate and rhythm (s1s2) Gastrointestinal: soft, non-tender, bowel sounds Extremities: edema Labs Result Diagram: 08/27/18 0654 08/27/18 0654 Results 24hrs Laboratory Tests Test 08/27/18 06:54 08/27/18 07:56 08/27/18 11:48 08/27/18 17:34 White Blood Count 6.5 Red Blood Count 3.75 L Hemoglobin 10.8 L Hematocrit 35.3 L Mean Corpuscular Volume 94.1 Mean Corpuscular 28.8 L Hemoglobin Mean Corpuscular 30.6 L Hemoglobin Concent Red Cell Distribution 18.5 H Width Platelet Count 260 Mean Platelet Volume 10.1 Immature Granulocytes % 1.200 H Neutrophils % 64.6 Lymphocytes % 19.4 Monocytes % 11.0 Eosinophils % 3.3 Basophils % 0.5 Nucleated Red Blood 0.0 Cells % Immature Granulocytes # 0.080 H Neutrophils # 4.2 Lymphocytes # 1.3 Monocytes # 0.7 Eosinophils # 0.2 Basophils # 0.0 Nucleated Red Blood 0.0 Cells # Sodium Level 142 Potassium Level 5.2 H Chloride Level 106 Carbon Dioxide Level 28 Anion Gap 8 Blood Urea Nitrogen 25 H Creatinine 0.74 Est Glomerular Filtrat Rate mL/min Glucose Level 208 # Calcium Level 9.3 Bedside Glucose 208 315 H 195 Test 08/27/18 20:46 Bedside Glucose 256 H Medications Medications Current Medications IV Flush (NS 3 ml) 3 ml PER PROTOCOL IV ; Start 08/21/18 at 04:00 Ondansetron HCl (Zofran Inj) 4 mg Q6H PRN IV NAUSEA/VOMITING; Start 08/21/18 at 04:00 Nitroglycerin (Nitroglycerin (Sl Tab) 0.4 Mg) 1 tab Q5M PRN SL .CHEST PAIN; Start 08/21/18 at 04:00 Acetaminophen (Tylenol Tab) 650 mg Q6H PRN PO .PAIN 1-3 OR TEMP Last administered on 08/21/18 15:33; Admin Dose 650 MG; Start 08/21/18 at 04:00 Albuterol/ Ipratropium (Duoneb) 3 ml Q2H RESP THERAPY PRN HHN SHORTNESS OF BREATH Last administered on 08/25/18 23:46; Admin Dose 3 ML; Start 08/21/18 at 04:00 Aspirin (Halfprin) 81 mg DAILY PO Last administered on 08/27/18 08:08; Admin Dose 81 MG; Start 08/21/18 at 09:00 Atorvastatin Calcium (Lipitor) 20 mg DAILY@2100 PO Last administered on 08/27/18 t 21:13; Admin Dose 20 MG; Start 08/21/18 at 21:00 Calcium Carbonate (Oyster Shell Calcium) 1.25 gm DAILY PO Last administered on 08/27/18 08:07; Admin Dose 1.25 GM; Start 08/21/18 at 09:00 Gabapentin (Neurontin) 300 mg TID PO Last administered on 08/27/18 21:13; Admin Dose 300 MG; Start 08/21/18 at 13:00 Fenofibrate (Tricor) 145 mg DAILY PO Last administered on 08/27/18 08:07; Admin Dose 145 MG; Start 08/21/18 at 09:00 Insulin Aspart (Novolog Insulin Pen) NOVOLOG *MILD* ALGORITHM WITH MEALS BEDTIME SC Last administered on 08/27/18 21:25; Admin Dose 2 UNIT; Start 08/21/18 at 18:00 Miscellaneous Information 1 ea NOTE XX ; Start 08/21/18 at 15:00 Glucose (Glutose) 15 gm Q15M PRN PO DECREASED GLUCOSE; Start 08/21/18 at 15:00 Glucose (Glutose) 22.5 gm Q15M PRN PO DECREASED GLUCOSE; Start 08/21/18 at 15:00 Dextrose (D50w Syringe) 25 ml Q15M PRN IV DECREASED GLUCOSE; Start 08/21/18 at 15:00 Dextrose (D50w Syringe) 50 ml Q15M PRN IV DECREASED GLUCOSE; Start 08/21/18 at 15:00 Glucagon (Glucagen) 1 mg Q15M PRN IM DECREASED GLUCOSE; Start 08/21/18 at 15:00 Glucose (Glutose) 15 gm Q15M PRN BUCCAL DECREASED GLUCOSE; Start 08/21/18 at 15:00 Enoxaparin Sodium (Lovenox) 40 mg DAILY SC Last administered on 08/27/18 08:19; Admin Dose 40 MG; Start 08/23/18 at 09:00 Polysaccharide Iron Complex (Niferex-150) 1 cap BID PO Last administered on 08/27/18 21:14; Admin Dose 1 CAP; Start 08/23/18 at 09:00 Linagliptin (Tradjenta) 5 mg DAILY PO Last administered on 08/27/18 08:25; Admin Dose 5 MG; Start 08/24/18 at 12:00 Diagnostic Test (Pha) (Accu-Chek) 1 ea AC MEALS AND BEDTIME XX Last administered on 08/27/18 21:16; Admin Dose 1 EA; Start 08/24/18 at 17:25 Carvedilol (Coreg) 3.125 mg BID PO Last administered on 08/27/18 21:14; Admin Dose 3.125 MG; Start 08/24/18 at 12:00 Digoxin (Digoxin) 0.125 mg DAILY@13 PO Last administered on 08/27/18at 12:49; Admin Dose 0.125 MG; Start 08/24/18 at 16:00 Furosemide (Lasix) 40 mg DAILY PO Last administered on 08/27/18at 08:08; Admin Dose 40 MG; Start 08/25/18 at 12:00 Insulin Aspart (Novolog Insulin Pen) 8 unit WITH MEALS SC Last administered on 08/27/18at 17:41; Admin Dose 8 UNIT; Start 08/27/18 at 17:55 Insulin Glargine (Lantus) 24 units HS SC Last administered on 08/27/18at 21:25; Admin Dose 24 UNITS; Start 08/27/18 at 21:00 Lucas Otto DO Aug 27, 2018 21:35
[2018-08-27] MEDS: ALBUTEROL/IPRATROPIUM (NEB) 3 ML AMP HHN PRN (22:13)
[2018-08-28] VITALS (12 sets, daily range): BP systolic 93–119; BP diastolic 52–66; PULSE 50–96; RESP 18–20
[2018-08-28] MEDS: ACCU-CHEK XX SCH ×4 (08:07→21:01)
[2018-08-28] MEDS: FENOFIBRATE 145 MG TAB PO SCH (08:26)
[2018-08-28] MEDS: POLYSACCHARIDE IRON COMPLEX CAP PO SCH ×2 (08:26→20:41)
[2018-08-28] MEDS: FUROSEMIDE 40 MG TAB PO SCH (08:26)
[2018-08-28] MEDS: CALCIUM CARBONATE 1.25 GM TAB PO SCH (08:26)
[2018-08-28] MEDS: ASPIRIN (EC) 81 MG TAB PO SCH (08:27)
[2018-08-28] MEDS: LINAGLIPTIN 5 MG TABLET PO SCH (08:27)
[2018-08-28] MEDS: GABAPENTIN 300 MG CAP PO SCH ×3 (08:27→20:42)
[2018-08-28] MEDS: INSULIN ASPART [NOVOLOG] 3 ML PEN SC SCH ×7 (08:52→21:00)
[2018-08-28] MEDS: ENOXAPARIN 40 MG/0.4 ML SYG SC SCH (08:52)
[2018-08-28] MEDS: DIGOXIN 0.125 MG TAB PO SCH (13:08)
--- NOTE | 2018-08-28 15:35 | PN ---
Date/Time of Note Date/Time of Note DATE: 08/28/18 TIME: 15:28 Assessment/Plan VTE Prophylaxis Risk score (from Nsg)>0 risk: 7 SCD applied (from Nsg): Yes Pharmacological prophylaxis: LMWH Lines/Catheters IV Catheter Type (from Nrsg): Portacath Urinary Cath still in place: No Assessment/Plan Assessment/Plan 1. CHF, acute on chronic, systolic with LVEF 30%, on coreg, digoxin and lasix, hold losartan for high K 2. Dilated cardiomyopathy, ?chemo drug related, awaiting for the son to give the list of chemo drug she got 3. Breast cancer status post surgery in 04/2018, still on 4th cycles chemotherapy 4. DM, increase lantus and pre-meal insulin 5. 0.5 cm pulmonary nodule in the right middle lobe, follow up with PCP to repeat CT 6. DVT prophylaxis: lovenox 7. Hyperkalemia, hold losartan 8. HTN, controlled 9. DVT prophylaxis: Lovenox Result Diagram: 08/28/18 0744 08/28/18 0744 Results 24hrs Laboratory Tests Test 08/27/18 17:34 08/27/18 20:46 08/28/18 01:38 08/28/18 07:44 Bedside Glucose 195 256 H 244 H White Blood Count 7.3 Red Blood Count 3.76 L Hemoglobin 10.8 L Hematocrit 34.7 L Mean Corpuscular Volume 92.3 Mean Corpuscular 28.7 L Hemoglobin Mean Corpuscular 31.1 L Hemoglobin Concent Red Cell Distribution 18.4 H Width Platelet Count 197 # Mean Platelet Volume 10.8 H Immature Granulocytes % 0.800 H Neutrophils % 68.9 Lymphocytes % 18.6 Monocytes % 9.2 Eosinophils % 2.2 Basophils % 0.3 Nucleated Red Blood 0.0 Cells % Immature Granulocytes # 0.060 H Neutrophils # 5.0 Lymphocytes # 1.4 Monocytes # 0.7 Eosinophils # 0.2 Basophils # 0.0 Nucleated Red Blood 0.0 Cells # Sodium Level 138 Potassium Level 5.2 H Chloride Level 104 Carbon Dioxide Level 27 Anion Gap 7 Blood Urea Nitrogen 30 H Creatinine 0.82 Est Glomerular Filtrat Rate mL/min Glucose Level 201 Calcium Level 9.3 Test 08/28/18 08:06 08/28/18 11:43 Bedside Glucose 196 269 H Subjective 24 Hr Interval Summary Free Text/Dictation much less shortness of breath Exam/Review of Systems Exam Vitals Vital Signs Date Temp Pulse Resp B/P (MAP) Pulse Ox O2 O2 Flow FiO2 Time Delivery Rate 08/28/18 98.5 50 117/54 90 15:15 (75) 08/28/18 2.0 14:12 08/28/18 20 Room Air 11:40 Intake and Output 08/27/18 08/27/18 08/28/18 1515:00 23:00 07:00 IntakeIntake Total 800 ml 750 ml 300 ml BalanceBalance 800 ml 750 ml 300 ml Constitutional: alert, oriented, well developed Psych: no complaints, nl mood/affect Head: normocephalic, atraumatic Eyes: nl conjunctiva, EOMI, nl lids ENMT: nl external ears & nose, nl lips & teeth, nl nasal mucosa & septum Neck: supple, non-tender Respiratory: clear to auscultation, normal air movement; No congested cough, No crackles/rales, No diminished breath sounds, No intercostal retraction, No labored breathing, No respirations, No tactile fremitus, No wheezing, No other Cardiovascular: regular rate and rhythm, nl pulses; No bruits, No diastolic murmur, No edema, No gallop, No irregular rhythm, No jugular venous distention (JVD), No murmurs/extra sounds, No rub, No systolic murmur, No S3, No S4, No other Gastrointestinal: soft, nl liver, spleen, non-tender Musculoskeletal: nl extremities to inspection Extremities: normal pulses; No calf tenderness, No cyanosis, No clubbing, No edema, No pitting pedal edema, No palpable cord, No tenderness, No other 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: LIDDER II-XII intact, nl mental status, nl speech, nl strength Results Results 24hrs Laboratory Tests Test 08/27/18 17:34 08/27/18 20:46 08/28/18 01:38 08/28/18 07:44 Bedside Glucose 195 256 H 244 H White Blood Count 7.3 Red Blood Count 3.76 L Hemoglobin 10.8 L Hematocrit 34.7 L Mean Corpuscular Volume 92.3 Mean Corpuscular 28.7 L Hemoglobin Mean Corpuscular 31.1 L Hemoglobin Concent Red Cell Distribution 18.4 H Width Platelet Count 197 # Mean Platelet Volume 10.8 H Immature Granulocytes % 0.800 H Neutrophils % 68.9 Lymphocytes % 18.6 Monocytes % 9.2 Eosinophils % 2.2 Basophils % 0.3 Nucleated Red Blood 0.0 Cells % Immature Granulocytes # 0.060 H Neutrophils # 5.0 Lymphocytes # 1.4 Monocytes # 0.7 Eosinophils # 0.2 Basophils # 0.0 Nucleated Red Blood 0.0 Cells # Sodium Level 138 Potassium Level 5.2 H Chloride Level 104 Carbon Dioxide Level 27 Anion Gap 7 Blood Urea Nitrogen 30 H Creatinine 0.82 Est Glomerular Filtrat Rate mL/min Glucose Level 201 Calcium Level 9.3 Test 08/28/18 08:06 08/28/18 11:43 Bedside Glucose 196 269 H Medications Medication Current Medications IV Flush (NS 3 ml) 3 ml PER PROTOCOL IV ; Start 08/21/18 at 04:00 Ondansetron HCl (Zofran Inj) 4 mg Q6H PRN IV NAUSEA/VOMITING; Start 08/21/18 at 04:00 Nitroglycerin (Nitroglycerin (Sl Tab) 0.4 Mg) 1 tab Q5M PRN SL .CHEST PAIN; Start 08/21/18 at 04:00 Acetaminophen (Tylenol Tab) 650 mg Q6H PRN PO .PAIN 1-3 OR TEMP Last administered on 08/21/18 15:33; Admin Dose 650 MG; Start 08/21/18 at 04:00 Albuterol/ Ipratropium (Duoneb) 3 ml Q2H RESP THERAPY PRN HHN SHORTNESS OF BREATH Last administered on 08/27/18 22:13; Admin Dose 3 ML; Start 08/21/18 at 04:00 Aspirin (Halfprin) 81 mg DAILY PO Last administered on 08/28/18 08:27; Admin Dose 81 MG; Start 08/21/18 at 09:00 Atorvastatin Calcium (Lipitor) 20 mg DAILY@2100 PO Last administered on 08/27/18 21:13; Admin Dose 20 MG; Start 08/21/18 at 21:00 Calcium Carbonate (Oyster Shell Calcium) 1.25 gm DAILY PO Last administered on 08/28/18 08:26; Admin Dose 1.25 GM; Start 08/21/18 at 09:00 Gabapentin (Neurontin) 300 mg TID PO Last administered on 4/3/19at 13:07; Admin Dose 300 MG; Start 08/21/18 at 13:00 Fenofibrate (Tricor) 145 mg DAILY PO Last administered on 08/28/18 08:26; Admin Dose 145 MG; Start 08/21/18 at 09:00 Insulin Aspart (Novolog Insulin Pen) NOVOLOG *MILD* ALGORITHM WITH MEALS BE DTIME SC Last administered on 08/28/18 11:58; Admin Dose 4 UNIT; Start 08/21/18 at 18:00 Miscellaneous Information 1 ea NOTE XX ; Start 08/21/18 at 15:00 Glucose (Glutose) 15 gm Q15M PRN PO DECREASED GLUCOSE; Start 08/21/18 at 15:00 Glucose (Glutose) 22.5 gm Q15M PRN PO DECREASED GLUCOSE; Start 08/21/18 at 15:00 Dextrose (D50w Syringe) 25 ml Q15M PRN IV DECREASED GLUCOSE; Start 08/21/18 at 15:00 Dextrose (D50w Syringe) 50 ml Q15M PRN IV DECREASED GLUCOSE; Start 08/21/18 at 15:00 Glucagon (Glucagen) 1 mg Q15M PRN IM DECREASED GLUCOSE; Start 08/21/18 at 15:00 Glucose (Glutose) 15 gm Q15M PRN BUCCAL DECREASED GLUCOSE; Start 08/21/18 at 15:00 Enoxaparin Sodium (Lovenox) 40 mg DAILY SC Last administered on 08/28/18at 08:52; Admin Dose 40 MG; Start 08/23/18 at 09:00 Polysaccharide Iron Complex (Niferex-150) 1 cap BID PO Last administered on 08/28/18 08:26; Admin Dose 1 CAP; Start 08/23/18 at 09:00 Linagliptin (Tradjenta) 5 mg DAILY PO Last administered on 08/28/18 08:27; Admin Dose 5 MG; Start 08/24/18 at 12:00 Diagnostic Test (Pha) (Accu-Chek) 1 ea AC MEALS AND BEDTIME XX Last a dministered on 08/28/18at 11:45; Admin Dose 1 EA; Start 08/24/18 at 17:25 Carvedilol (Coreg) 3.125 mg BID PO Last administered on 08/28/18 08:27; Admin Dose 3.125 MG; Start 08/24/18 at 12:00 Digoxin (Digoxin) 0.125 mg DAILY@13 PO Last administered on 08/28/18at 13:08; Admin Dose 0.125 MG; Start 08/24/18 at 16:00 Furosemide (Lasix) 40 mg DAILY PO Last administered on 08/28/18at 08:26; Admin Dose 40 MG; Start 08/25/18 at 12:00 Insulin Aspart (Novolog Insulin Pen) 8 unit WITH MEALS SC Last administered on 08/28/18at 11:59; Admin Dose 8 UNIT; Start 08/27/18 at 17:55 Insulin Glargine (Lantus) 28 units HS SC ; Start 08/28/18 at 21:00 MARIELY HERRERA MD Aug 28, 2018 15:35
[2018-08-28] MEDS: ATORVASTATIN 20 MG TAB PO SCH (20:44)
[2018-08-28] MEDS ORDERED: INSULIN GLARGINE [LANTus] (100 UNITS/ML) SYG SC SCH (21:00)
--- NOTE | 2018-08-28 21:24 | CONS ---
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 -We will continue beta-sruthi, ARB on hold secondary to hyperK -Patient currently on oral diuretic, titrate as needed -Continue aspirin and statin therapy -DC planning Consultation Date/Type/Reason Admit Date/Time Aug 20, 2018 at 23:52 Initial Consult Date 08/22/18 Type of Consult Cardiology Date/Time of Note DATE: 08/28/18 TIME: 21:23 24 HR Interval Summary Free Text/Dictation sob better, no cp, dizziness Exam/Review of Systems Vital Signs Vitals Vital Signs Date Temp Pulse Resp B/P (MAP) Pulse Ox O2 O2 Flow FiO2 Time Delivery Rate 08/28/18 97.8 96 19 107/52 97 20:00 (70) 08/28/18 Nasal 2.0 20:00 Cannula Intake and Output 08/27/18 08/27/18 08/28/18 1515:00 23:00 07:00 IntakeIntake Total 800 ml 750 ml 300 ml BalanceBalance 800 ml 750 ml 300 ml Exam Constitutional: alert, oriented (nad) Head: normocephalic Respiratory: other (course bs, no wheeze) Cardiovascular: regular rate and rhythm (s1s2) Gastrointestinal: soft, non-tender, bowel sounds Extremities: edema Labs Result Diagram: 08/28/18 0744 08/28/18 0744 Results 24hrs Laboratory Tests Test 08/28/18 01:38 08/28/18 07:44 08/28/18 08:06 08/28/18 11:43 Bedside Glucose 244 H 196 269 H White Blood Count 7.3 Red Blood Count 3.76 L Hemoglobin 10.8 L Hematocrit 34.7 L Mean Corpuscular Volume 92.3 Mean Corpuscular 28.7 L Hemoglobin Mean Corpuscular 31.1 L Hemoglobin Concent Red Cell Distribution 18.4 H Width Platelet Count 197 # Mean Platelet Volume 10.8 H Immature Granulocytes % 0.800 H Neutrophils % 68.9 Lymphocytes % 18.6 Monocytes % 9.2 Eosinophils % 2.2 Basophils % 0.3 Nucleated Red Blood 0.0 Cells % Immature Granulocytes # 0.060 H Neutrophils # 5.0 Lymphocytes # 1.4 Monocytes # 0.7 Eosinophils # 0.2 Basophils # 0.0 Nucleated Red Blood 0.0 Cells # Sodium Level 138 Potassium Level 5.2 H Chloride Level 104 Carbon Dioxide Level 27 Anion Gap 7 Blood Urea Nitrogen 30 H Creatinine 0.82 Est Glomerular Filtrat Rate mL/min Glucose Level 201 Calcium Level 9.3 Test 08/28/18 17:40 08/28/18 20:32 Bedside Glucose 210 321 H Medications Medications Current Medications IV Flush (NS 3 ml) 3 ml PER PROTOCOL IV ; Start 08/21/18 at 04:00 Ondansetron HCl (Zofran Inj) 4 mg Q6H PRN IV NAUSEA/VOMITING; Start 08/21/18 at 04:00 Nitroglycerin (Nitroglycerin (Sl Tab) 0.4 Mg) 1 tab Q5M PRN SL .CHEST PAIN; Start 08/21/18 at 04:00 Acetaminophen (Tylenol Tab) 650 mg Q6H PRN PO .PAIN 1-3 OR TEMP Last administered on 08/21/18 15:33; Admin Dose 650 MG; Start 08/21/18 at 04:00 Albuterol/ Ipratropium (Duoneb) 3 ml Q2H RESP THERAPY PRN HHN SHORTNESS OF BREATH Last administered on 08/27/18 22:13; Admin Dose 3 ML; Start 08/21/18 at 04:00 Aspirin (Halfprin) 81 mg DAILY PO Last administered on 08/28/18 08:27; Admin Dose 81 MG; Start 08/21/18 at 09:00 Atorvastatin Calcium (Lipitor) 20 mg DAILY@2100 PO Last administered on 08/28/18 20:44; Admin Dose 20 MG; Start 08/21/18 at 21:00 Calcium Carbonate (Oyster Shell Calcium) 1.25 gm DAILY PO Last administered on 08/28/18 08:26; Admin Dose 1.25 GM; Start 08/21/18 at 09:00 Gabapentin (Neurontin) 300 mg TID PO Last administered on 08/28/18 20:42; Admin Dose 300 MG; Start 08/21/18 at 13:00 Fenofibrate (Tricor) 145 mg DAILY PO Last administered on 4/3/19at 08:26; Admin Dose 145 MG; Start 08/21/18 at 09:00 Insulin Aspart (Novolog Insulin Pen) NOVOLOG *MILD* ALGORITHM WITH MEALS BEDTIME SC Last administered on 08/28/18 21:00; Admin Dose 4 UNIT; Start 08/21/18 at 18:00 Miscellaneous Information 1 ea NOTE XX ; Start 08/21/18 at 15:00 Glucose (Glutose) 15 gm Q15M PRN PO DECREASED GLUCOSE; Start 08/21/18 at 15:00 Glucose (Glutose) 22.5 gm Q15M PRN PO DECREASED GLUCOSE; Start 08/21/18 at 15:00 Dextrose (D50w Syringe) 25 ml Q15M PRN IV DECREASED GLUCOSE; Start 08/21/18 at 15:00 Dextrose (D50w Syringe) 50 ml Q15M PRN IV DECREASED GLUCOSE; Start 08/21/18 at 15:00 Glucagon (Glucagen) 1 mg Q15M PRN IM DECREASED GLUCOSE; Start 08/21/18 at 15:00 Glucose (Glutose) 15 gm Q15M PRN BUCCAL DECREASED GLUCOSE; Start 08/21/18 at 15:00 Enoxaparin Sodium (Lovenox) 40 mg DAILY SC Last administered on 08/28/18 08:52; Admin Dose 40 MG; Start 08/23/18 at 09:00 Polysaccharide Iron Complex (Niferex-150) 1 cap BID PO Last administered on 08/28/18 20:41; Admin Dose 1 CAP; Start 08/23/18 at 09:00 Linagliptin (Tradjenta) 5 mg DAILY PO Last administered on 08/28/18 08:27; Admin Dose 5 MG; Start 08/24/18 at 12:00 Diagnostic Test (Pha) (Accu-Chek) 1 ea AC MEALS AND BEDTIME XX Last administered on 08/28/18 21:01; Admin Dose 1 EA; Start 08/24/18 at 17:25 Digoxin (Digoxin) 0.125 mg DAILY@13 PO Last administered on 08/28/18 13:08; Admin Dose 0.125 MG; Start 08/24/18 at 16:00 Furosemide (Lasix) 40 mg DAILY PO Last administered on 08/28/18 08:26; Admin Dose 40 MG; Start 08/25/18 at 12:00 Insulin Aspart (Novolog Insulin Pen) 8 unit WITH MEALS SC Last administered on 08/28/18at 17:47; Admin Dose 8 UNIT; Start 08/27/18 at 17:55 Insulin Glargine (Lantus) 28 units HS SC Last administered on 08/28/18at 21:00; Admin Dose 28 UNITS; Start 08/28/18 at 21:00 Carvedilol (Coreg) 6.25 mg BID PO Last administered on 08/28/18at 20:42; Admin Dose 6.25 MG; Start 08/28/18 at 21:00 Lucas Otto DO Aug 28, 2018 21:24
[2018-08-29 02:32] VITALS: BP 93/55; PULSE 78; RESP 19
[2018-08-29 08:00] VITALS: BP 108/67; PULSE 84; RESP 18
[2018-08-29] MEDS: ACCU-CHEK XX SCH ×2 (08:30→13:00)
[2018-08-29] MEDS: CALCIUM CARBONATE 1.25 GM TAB PO SCH (08:32)
[2018-08-29] MEDS: FENOFIBRATE 145 MG TAB PO SCH (08:32)
[2018-08-29] MEDS: GABAPENTIN 300 MG CAP PO SCH ×2 (08:32→12:57)
[2018-08-29] MEDS: ASPIRIN (EC) 81 MG TAB PO SCH (08:32)
[2018-08-29] MEDS: FUROSEMIDE 40 MG TAB PO SCH (08:32)
[2018-08-29] MEDS: LINAGLIPTIN 5 MG TABLET PO SCH (08:32)
[2018-08-29] MEDS: INSULIN ASPART [NOVOLOG] 3 ML PEN SC SCH ×4 (08:34→13:00)
[2018-08-29] MEDS: ENOXAPARIN 40 MG/0.4 ML SYG SC SCH (08:36)
[2018-08-29] MEDS: POLYSACCHARIDE IRON COMPLEX CAP PO SCH ×2 (09:00→11:38)
[2018-08-29] MEDS: DIGOXIN 0.125 MG TAB PO SCH (12:57)
[2018-08-29] MEDS ORDERED: DIGO125T PO (13:39)
[2018-08-29] MEDS ORDERED: CARV3.1260 PO (13:39)
[2018-08-29] MEDS ORDERED: FURO40TA4 PO (13:39)
--- NOTE | 2018-08-29 13:47 | DS ---
Date/Time of Note Date/Time of Note DATE: 08/29/18 TIME: 13:41 Discharge Summary Admission/Discharge Info Admit Date/Time Aug 20, 2018 at 23:52 Discharge Date/Time Discharge Diagnosis 1. CHF, acute on chronic, systolic with LVEF 30%, on coreg, digoxin and lasix, hold losartan for high K 2. Dilated cardiomyopathy, ?chemo drug related, follow up with cardiology 3. Breast cancer status post surgery in 04/2018, still on 4th cycles chemotherapy 4. DM, resume home meds 5. 0.5 cm pulmonary nodule in the right middle lobe, follow up with oncology to repeat CT 6. HTN, controlled Patient Condition: Stable Hospital Course This is a 72-year-old female with a history of right breast cancer on chemo who was brought to the ER for a shortness of breath and palpitations. Symptoms been going on for the past 2 days. Denied chest pain. When she presented to ER, she was tachycardic with a heart rate of 135 and tachypneic in the high 20s. Chest x-ray shows mild pulmonary vascular congestion and mild cardiomegaly. CTPA shows findings suggestive of CHF. No PE. A 0.5 cm lung nodule was also noted.. Echocardiography with LVEF 30%. Patient was recently treated with chemotherapy for breast cancer and patient does not have history of CHF, CHF and cardiomyopathy could be from chemotherapy. I dont have the medication, I asked the son to discuss this issue with her oncologist. For treatment of CHF, she is treated with lasix, coreg, digoxin is added by commercial census taker. She cannot tolerate CORBIN inhibitor or ARB at this tme due to hyperkalemia events. Patient will follow up with commercial census taker outpatient to adjust medications. Home Meds Active Scripts Furosemide* (Furosemide*) 40 Mg Tablet, 40 MG PO DAILY for 30 Days, TAB Prov:MARIELY HERRERA MD 08/29/18 Digoxin* (Digitek*) 125 Mcg Tablet, 0.125 MG PO DAILY@13 for 30 Days, TAB Prov:MARIELY HERRERA MD 08/29/18 Carvedilol* (Carvedilol*) 3.125 Mg Tablet, 6.25 MG PO BID for 30 Days, TAB Prov:MARIELY HERRERA MD 08/29/18 Reported Medications Insulin Glargine,Hum.rec.anlog (Basaglar Kwikpen U-100) 100 Unit/1 Ml I nsuln.pen, 40 UNIT SQ QHS 08/21/18 Sitagliptin Phos/Metformin HCl (Janumet 50-1,000 mg Tablet) 1 Each Tablet, 1 TAB PO BID for 30 Days, #60 08/21/18 Amitriptyline Hcl* (Amitriptyline Hcl*) 100 Mg Tablet, 100 MG PO DAILY for 30 Days, #30 08/21/18 Fenofibrate, Micronized (Fenofibrate) 134 Mg Capsule, 134 MG PO DAILY for 30 Days, #30 08/21/18 Atorvastatin Calcium (Atorvastatin Calcium) 20 Mg Tablet, 20 MG PO DAILY for 30 Days, #30 08/21/18 Gabapentin* (Gabapentin*) 300 Mg Capsule, 300 MG PO TID for 30 Days, #90 08/21/18 Aspirin* (Aspirin* EC) 81 Mg Tablet.dr, 81 MG PO DAILY for 30 Days, #30 08/21/18 Ergocalciferol (Vitamin D2) (VITAMIN D2) 50,000 Unit Capsule, 66291 MG PO Q7D for 28 Days, #4 08/21/18 Calcium Carbonate (Oysco-500) 500 Mg Tablet, 500 MG PO DAILY for 30 Days, #60 08/21/18 Calcium Carbonate* (Os-Cody 500*) 1 Tab Tablet, 1 TAB PO BID, TAB 11/25/15 Alendronate Sodium* (Fosamax*) 70 Mg Tablet, 70 MG PO Q7D PRN for QFRI, #4 TAB 11/25/15 Discontinued Reported Medications Metoprolol Succinate* (Toprol XL*) 25 Mg Tab.sr.24h, 25 MG PO DAILY for 30 Days, #30 08/21/18 Losartan-Hydrochlorothiazide (Losartan-HCTZ) 50-12.5 Mg Tab, 1 TAB PO DAILY for 30 Days, #30 08/21/18 Enalapril Maleate* (Enalapril Maleate*) 5 Mg Tablet, 5 MG PO DAILY, TAB 11/25/15 Follow-up Plan PCP, cardiology and oncology in one week Primary Care Provider Not On Staff Doctor Pending Labs Laboratory Tests Test 08/28/18 17:40 08/28/18 20:32 08/29/18 04:41 08/29/18 08:25 Bedside 210 321 176 Glucose mg/dL (70-220) mg/dL (70-220) mg/dL (70-220) Sodium Level 139 mmol/L (135-14 4) Potassium 4.7 Level mmol/L (3.5-5. 1) Chloride Level 102 mmol/L (97-110 ) Carbon Dioxide 28 Level mmol/L (21-31) Anion Gap 9 (5-13) Blood Urea 31 Nitrogen mg/dl (7-20) Creatinine 0.84 mg/dl (0.44-1. 00) Est Glomerular mL/min (>60) Filtrat Rate mL/min Glucose Level 187 mg/dl (70-220) Calcium Level 9.0 mg/dl (8.4-10. 2) Test 08/29/18 12:56 Bedside 234 Glucose mg/dL (70-220) MARIELY HERRERA MD Aug 29, 2018 13:47
[2018-08-29 14:05] VITALS: BP 104/57; PULSE 91; RESP 18
[2018-08-29] MEDS ORDERED: HEPARIN (100 UNITS/ML) 5 ML SYG CATHETER ONE (15:30)
--- NOTE | 2018-08-29 16:36 | CONS ---
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 -We will continue beta-sruthi, ARB on hold secondary to hyperK -Patient currently on oral diuretic, continue as tolerated -Continue aspirin and statin therapy -DC planning Consultation Date/Type/Reason Admit Date/Time Aug 20, 2018 at 23:52 Initial Consult Date 08/22/18 Type of Consult Cardiology Date/Time of Note DATE: 08/29/18 TIME: 16:35 24 HR Interval Summary Free Text/Dictation Feeling better, no shortness of breath Exam/Review of Systems Vital Signs Vitals Vital Signs Date Temp Pulse Resp B/P (MAP) Pulse Ox O2 O2 Flow FiO2 Time Delivery Rate 08/29/18 97.4 91 18 104/57 99 14:05 (73) 08/29/18 Nasal 2.0 08:00 Cannula Intake and Output 08/28/18 08/28/18 08/29/18 1515:00 23:00 07:00 IntakeIntake Total 1160 ml 200 ml BalanceBalance 1160 ml 200 ml Exam Constitutional: alert, oriented (No apparent distress) Respiratory: other (Coarse breath sounds bilaterally, no wheezing) Cardiovascular: regular rate and rhythm (S1-S2 heard) Gastrointestinal: soft, non-tender, bowel sounds Extremities: edema Labs Result Diagram: 08/28/18 0744 08/29/18 0441 Results 24hrs Laboratory Tests Test 08/28/18 17:40 08/28/18 20:32 08/29/18 04:41 08/29/18 08:25 Bedside Glucose 210 321 H 176 Sodium Level 139 Potassium Level 4.7 Chloride Level 102 Carbon Dioxide Level 28 Anion Gap 9 Blood Urea Nitrogen 31 H Creatinine 0.84 Est Glomerular Filtrat Rate mL/min Glucose Level 187 Calcium Level 9.0 Test 08/29/18 12:56 Bedside Glucose 234 H Medications Medications Current Medications IV Flush (NS 3 ml) 3 ml PER PROTOCOL IV ; Start 08/21/18 at 04:00 Ondansetron HCl (Zofran Inj) 4 mg Q6H PRN IV NAUSEA/VOMITING; Start 08/21/18 at 04:00 Nitroglycerin (Nitroglycerin (Sl Tab) 0.4 Mg) 1 tab Q5M PRN SL .CHEST PAIN; Start 08/21/18 at 04:00 Acetaminophen (Tylenol Tab) 650 mg Q6H PRN PO .PAIN 1-3 OR TEMP Last administered on 08/21/18 15:33; Admin Dose 650 MG; Start 08/21/18 at 04:00 Albuterol/ Ipratropium (Duoneb) 3 ml Q2H RESP THERAPY PRN HHN SHORTNESS OF BR EATH Last administered on 08/27/18 22:13; Admin Dose 3 ML; Start 08/21/18 at 04:00 Aspirin (Halfprin) 81 mg DAILY PO Last administered on 08/29/18 08:32; Admin Dose 81 MG; Start 08/21/18 at 09:00 Atorvastatin Calcium (Lipitor) 20 mg DAILY@2100 PO Last administered on 08/28/18 20:44; Admin Dose 20 MG; Start 08/21/18 at 21:00 Calcium Carbonate (Oyster Shell Calcium) 1.25 gm DAILY PO Last administered on 08/29/18 08:32; Admin Dose 1.25 GM; Start 08/21/18 at 09:00 Gabapentin (Neurontin) 300 mg TID PO Last administered on 08/29/18 12:57; Admin Dose 300 MG; Start 08/21/18 at 13:00 Fenofibrate (Tricor) 145 mg DAILY PO Last administered on 08/29/18 08:32; Admin Dose 145 MG; Start 08/21/18 at 09:00 Insulin Aspart (Novolog Insulin Pen) NOVOLOG *MILD* ALGORITHM WITH MEALS BEDTIME SC Last administered on 08/29/18 12:59; Admin Dose 3 UNIT; Start 08/21/18 at 18:00 Miscellaneous Information 1 ea NOTE XX ; Start 08/21/18 at 15:00 Glucose (Glutose) 15 gm Q15M PRN PO DECREASED GLUCOSE; Start 08/21/18 at 15:00 Glucose (Glutose) 22.5 gm Q15M PRN PO DECREASED GLUCOSE; Start 08/21/18 at 15:00 Dextrose (D50w Syringe) 25 ml Q15M PRN IV DECREASED GLUCOSE; Start 08/21/18 at 15:00 Dextrose (D50w Syringe) 50 ml Q15M PRN IV DECREASED GLUCOSE; Start 08/21/18 at 15:00 Glucagon (Glucagen) 1 mg Q15M PRN IM DECREASED GLUCOSE; Start 08/21/18 at 15:00 Glucose (Glutose) 15 gm Q15M PRN BUCCAL DECREASED GLUCOSE; Start 08/21/18 at 15:00 Enoxaparin Sodium (Lovenox) 40 mg DAILY SC Last administered on 08/29/18 08:36; Admin Dose 40 MG; Start 08/23/18 at 09:00 Polysaccharide Iron Complex (Niferex-150) 1 cap BID PO Last administered on 08/29/18 11:38; Admin Dose 1 CAP; Start 08/23/18 at 09:00 Linagliptin (Tradjenta) 5 mg DAILY PO Last administered on 08/29/18 08:32; Admin Dose 5 MG; Start 08/24/18 at 12:00 Diagnostic Test (Pha) (Accu-Chek) 1 ea AC MEALS AND BEDTIME XX Last administered on 08/29/18 13:00; Admin Dose 1 EA; Start 08/24/18 at 17:25 Digoxin (Digoxin) 0.125 mg DAILY@13 PO Last administered on 08/29/18 12:57; Admin Dose 0.125 MG; Start 08/24/18 at 16:00 Furosemide (Lasix) 40 mg DAILY PO Last administered on 08/29/18 08:32; Admin Dose 40 MG; Start 08/25/18 at 12:00 Insulin Aspart (Novolog Insulin Pen) 8 unit WITH MEALS SC Last administered on 08/29/18 13:00; Admin Dose 8 UNIT; Start 08/27/18 at 17:55 Carvedilol (Coreg) 6.25 mg BID PO Last administered on 08/29/18 08:33; Admin Dose 6.25 MG; Start 08/28/18 at 21:00 Diagnostic Test (Pha) (Accu-Chek) 1 ea 0100 XX ; Start 08/30/18 at 01:00 Insulin Glargine (Lantus) 30 units HS SC ; Start 08/29/18 at 21:00 Lucas Otto DO Aug 29, 2018 16:36
[2018-08-29] MEDS ORDERED: INSULIN GLARGINE [LANTus] (100 UNITS/ML) SYG SC SCH (21:00)
[2018-08-30] MEDS ORDERED: ACCU-CHEK XX SCH (01:00)
== END 2018-08-29 16:20 | disposition home or self-care (01) | DRG 280 ==
LOC: E/R 19:31 → ICU 23:52 → CANRESERV 08-21 13:39 → EDBEDREQSVC 08-21 14:26 → EDBEDREQ 08-21 14:26 → TEL 08-23 22:30 → MS1 08-28 21:57
PROVIDERS: ADMIT Internal Medicine; ATTEND Internal Medicine
PROC: 5A09357 Assistance with Respiratory Ventilation, Less than 24 Consecutive Hours, Continuous Positive Airway Pressure (ICD-10-PCS; principal; 2018-08-20)
DX: I11.0 Hypertensive heart disease with heart failure (principal); I21.4 Non-ST elevation (NSTEMI) myocardial infarction; J96.00 Acute respiratory failure, unspecified whether with hypoxia or hypercapnia; J21.9 Acute bronchiolitis, unspecified; I50.23 Acute on chronic systolic (congestive) heart failure; I95.9 Hypotension, unspecified; E87.5 Hyperkalemia; E11.42 Type 2 diabetes mellitus with diabetic polyneuropathy; I42.7 Cardiomyopathy due to drug and external agent; C50.911 Malignant neoplasm of unspecified site of right female breast; D63.0 Anemia in neoplastic disease; D63.8 Anemia in other chronic diseases classified elsewhere; E78.5 Hyperlipidemia, unspecified; R91.1 Solitary pulmonary nodule; M81.0 Age-related osteoporosis without current pathological fracture; T45.1X5A Adverse effect of antineoplastic and immunosuppressive drugs, initial encounter; E66.9 Obesity, unspecified; Z68.32 Body mass index [BMI] 32.0-32.9, adult; Y92.019 Unspecified place in single-family (private) house as the place of occurrence of the external cause; Z79.4 Long term (current) use of insulin; Z79.82 Long term (current) use of aspirin
CPT/HCPCS: 36415; 71045; 71275; 80048; 80053; 80061; 82550; 82553; 82947; 82962; 83036; 83540; 83735; 83880; 84100; 84443; 84484; 85025; 85378; 85610; 85730; 87081; 93005; 93306; 93970; 94640; 94660; 94664; 96374; J0692; J1642; J1650; J1815; J1940; J2370; J2916; J7040; Q9967

== ENCOUNTER 2018-11-07 21:10 | Inpatient (IN) | payer BC ==
[~2018-11-07] VITALS: Ht 152.4 cm; Wt 72.2 kg
[~2018-11-07 21:10] MED LIST changes: +AMIT100T2 PO; +ASPI-817 PO; -ASPI81TA52 PO; +ATOR20TA65 PO; +CALC500T11 PO; +CARV3.1260 PO; +DIGO125T PO; -ENAL5TAB PO; +ERGO500013 PO; +FENO134C PO; +FURO40TA4 PO; +GABA300C16 PO; +INSU100I33 SQ; -MTF1000T PO; +SITA1TAB5 PO; -SITA50TA2 PO
[2018-11-07] MEDS ORDERED: ASPIRIN 81 MG TAB PO STA (21:28)
[2018-11-07] MEDS ORDERED: NITROGLYCERIN 2% 1 GM OINT PKT TD STA (21:28)
[2018-11-07] MEDS ORDERED: NITROGLYCERIN (SL) 0.4 MG TAB SL PRN ×2 (21:30→23:00)
[2018-11-07] MEDS ORDERED: INSU100I7 SQ (22:54)
--- NOTE | 2018-11-07 22:55 | ERD ---
ER Documentation Chief Complaint Chief Complaint CHEST PAIN WITH SOB; HX OF CARDIAC AND LUNG PROBS HPI Patient is a 73-year-old female with hypertension, diabetes, and cancer presents with chest pain. She said that she has not been feeling well. The symptoms started last night. She feels weak. She had associated shortness of breath. The chest pain is midsternal and constant. Upon review of old medical records this is the patient's third visit to the ER since 2016. ROS All systems reviewed and are negative except as per history of present illness. Medications Home Meds Active Scripts Furosemide* (Furosemide*) 40 Mg Tablet, 40 MG PO DAILY for 30 Days, TAB Prov:MARIELY HERRERA MD 08/29/18 Digoxin* (Digitek*) 125 Mcg Tablet, 0.125 MG PO DAILY@13 for 30 Days, TAB Prov:MARIELY HERRERA MD 08/29/18 Carvedilol* (Carvedilol*) 3.125 Mg Tablet, 6.25 MG PO BID for 30 Days, TAB Prov:MARIELY HERRERA MD 08/29/18 Reported Medications Insulin Glargine,Hum.rec.anlog (Basaglar Kwikpen U-100) 100 Unit/1 Ml Insuln.pen, 40 UNIT SQ QHS 08/21/18 Sitagliptin Phos/Metformin HCl (Janumet 50-1,000 mg Tablet) 1 Each Tablet, 1 TAB PO BID for 30 Days, #60 08/21/18 Amitriptyline Hcl* (Amitriptyline Hcl*) 100 Mg Tablet, 100 MG PO DAILY for 30 Days, #30 08/21/18 Fenofibrate, Micronized (Fenofibrate) 134 Mg Capsule, 134 MG PO DAILY for 30 Days, #30 08/21/18 Atorvastatin Calcium (Atorvastatin Calcium) 20 Mg Tablet, 20 MG PO DAILY for 30 Days, #30 08/21/18 Gabapentin* (Gabapentin*) 300 Mg Capsule, 300 MG PO TID for 30 Days, #90 08/21/18 Aspirin* (Aspirin* EC) 81 Mg Tablet.dr, 81 MG PO DAILY for 30 Days, #30 08/21/18 Ergocalciferol (Vitamin D2) (VITAMIN D2) 50,000 Unit Capsule, 25983 MG PO Q7D for 28 Days, #4 08/21/18 Calcium Carbonate (Oysco-500) 500 Mg Tablet, 500 MG PO DAILY for 30 Days, #60 08/21/18 Calcium Carbonate* (Os-Cody 500*) 1 Tab Tablet, 1 TAB PO BID, TAB 11/25/15 Alendronate Sodium* (Fosamax*) 70 Mg Tablet, 70 MG PO Q7D PRN for QFRI, #4 TAB 11/25/15 Allergies Allergies: Coded Allergies: No Known Allergy (Unverified , 11/07/18) PMhx/Soc History of Surgery: Yes (tumor removal-breast cancer) Hx 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 Disorder: No Hx Respiratory Disorders: Yes (PNA-1980) Hx Cardiac Disorders: No Hx Psychiatric Problems: No Hx Miscellaneous Medical Probl: Yes (OBESIY) Hx Alcohol Use: No Hx Substance Use: No Hx Tobacco Use: No Smoking Status: Current every day smoker FmHx Family History: No coronary disease Physical Exam Vitals Vital Signs Date Temp Pulse Resp B/P (MAP) Pulse Ox O2 O2 Flow FiO2 Time Delivery Rate 11/07/18 97.9 87 20 131/73 98 21:12 (92) Physical Exam Const: No acute distress Head: Atraumatic Eyes: Normal Conjunctiva ENT: Normal External Ears, Nose and Mouth. Neck: Full range of motion. No meningismus. Resp: Clear to auscultation bilaterally Cardio: Regular rate and rhythm, no murmurs Abd: Soft, non tender, non distended. Normal bowel sounds Skin: Pale skin Back: No midline or flank tenderness Ext: No cyanosis, or edema Neur: Awake and alert Psych: Normal Mood and Affect Result Diagram: 11/07/18213911/07/182139 Results 24 hrs Laboratory Tests Test 11/07/18 21:40 White Blood Count 9.6 10^3/ul Red Blood Count 4.38 10^6/ul Hemoglobin 12.3 g/dl Hematocrit 38.2 % Mean Corpuscular Volume 87.2 fl Mean Corpuscular Hemoglobin 28.1 pg Mean Corpuscular Hemoglobin Concent 32.2 g/dl Red Cell Distribution Width 13.7 % Platelet Count 212 10^3/UL Mean Platelet Volume 11.2 fl Immature Granulocytes % 0.300 % Neutrophils % 61.8 % Lymphocytes % 26.5 % Monocytes % 8.5 % Eosinophils % 2.7 % Basophils % 0.2 % Nucleated Red Blood Cells % 0.0 /100WBC Immature Granulocytes # 0.030 10^3/ul Neutrophils # 5.9 10^3/ul Lymphocytes # 2.5 10^3/ul Monocytes # 0.8 10^3/ul Eosinophils # 0.3 10^3/ul Basophils # 0.0 10^3/ul Nucleated Red Blood Cells # 0.0 10^3/ul Sodium Level 138 mmol/L Potassium Level 4.9 mmol/L Chloride Level 100 mmol/L Carbon Dioxide Level 27 mmol/L Anion Gap 11 Blood Urea Nitrogen 22 mg/dl Creatinine 1.00 mg/dl Est Glomerular Filtrat Rate mL/min mL/min Glucose Level 240 mg/dl Calcium Level 10.1 mg/dl Troponin I 0.024 ng/ml Current Medications Medications Dose Sig/Tera Start Time Status Last (Trade) Ordered Route PRN Stop Time Admin Dose Reason Admin Aspirin 162 mg ONCE STAT 11/07/18 DC 11/07/18 (Aspirin) PO 21:28 21:43 11/07/18 21:29 1 inch ONCE STAT 11/07/18 DC 11/07/18 Nitroglycerin TD 21:28 21:43 11/07/18 21:29 (Nitroglyceri n 2% Oint) 1 tab Q5M UP TO 3 11/07/18 11/07/18 Nitroglycerin DOSES PRN 21:30 21:43 SL .CHEST (Nitroglyceri PAIN n (Sl Tab) 0.4 Mg) Procedures/MDM Chest x-ray negative per radiology. EKG #1 read by me: Rate/Rhythm: Regular rate and rhythm at a rate of 82 Intervals: Normal Impression: No evidence of ischemia or arrhythmia EKG #2 read by me: Rate/Rhythm: Regular rate and rhythm at a rate of 80 Intervals: Normal Impression: No evidence of ischemia or arrhythmia Patient is a 73-year-old female with cardiac risk factors who presents with chest pain and shortness of breath. I am concerned for potential acute coronary syndrome. I doubt pneumonia, pneumothorax, pulmonary embolism, or aortic dissection. The patient was given aspirin and nitroglycerin for symptomatic treatment. The patient will be admitted to the care of Dr. Henry to a telemetry observation bed. Departure Diagnosis: Primary Impression: Chest pain Chest pain type: unspecified Qualified Codes: R07.9 - Chest pain, unspecified Condition: JANESSA Peres MD Nov 07, 2018 22:55
[2018-11-07] MEDS ORDERED: CARV12.579 PO (22:59)
[2018-11-07] MEDS ORDERED: LISI-313 PO (22:59)
[2018-11-07] MEDS ORDERED: ATOR40TA68 PO (22:59)
[2018-11-07] MEDS: ENOXAPARIN 40 MG/0.4 ML SYG SC SCH (23:00)
[2018-11-07] MEDS ORDERED: DOCUSATE SODIUM 100 MG CAP PO PRN (23:00)
[2018-11-07] MEDS ORDERED: BISACODYL (EC) 5 MG TAB PO PRN (23:00)
[2018-11-07] MEDS ORDERED: ONDANSETRON 4 MG INJ IV PRN ×2 (23:00)
[2018-11-07] MEDS ORDERED: morphine 2 MG INJ IV PRN (23:00)
[2018-11-07] MEDS ORDERED: ACETAMINOPHEN 325 MG TAB PO PRN ×2 (23:00)
[2018-11-07] MEDS ORDERED: NACL 0.9% 3 ML SYG IV SCH (23:00)
--- NOTE | 2018-11-07 23:01 | HP ---
Date/Time of Note Date/Time of Note DATE: 11/07/18 TIME: 23:00 Assessment/Plan VTE Prophylaxis Pharmacological prophylaxis: LMWH Lines/Catheters IV Catheter Type (from Nrs): Saline Lock Assessment/Plan Hospital Course This is a 73-year-old female being admitted to the telemetry floor for observation for: #1 dyspnea at rest and on exertion: Secondary to underlying cardiomyopathy, PE. Patient has a clear chest x-ray. She is not tachycardic. Her last chemotherapy was in July according to her. She has a history of an ejection fraction of approximately 30%. I will proceed with a echocardiogram to evaluate the patient's current heart function. Given her cancer history I will also order a stat CTA of the chest to rule out pulmonary embolism. She does not appear to be volume overloaded. We will consult cardiology Dr. Otto. Walking pulse ox, ABG #2 history of systolic CHF: Ejection fraction of 30% on echo in July 2018. Currently does not appear to be volume overloaded. We will continue patient's home medications. We will repeat an echocardiogram to reassess heart function. Consult cardiology. Continue patient's home medications. #3 diabetes mellitus: We will check hemoglobin A1c, resume patient's home insulin regimen, will hold oral medications at the current time. #4 history of cardiomyopathy: Suspect chemotherapy-induced, please see #2. #5 history of breast cancer: Patient is status post right breast lumpectomy, she had her last chemotherapy in July 2018. Follow-up with outpatient #6 hypertension: We will continue home medications #7.Hyperlipidemia: Continue home medications #8 osteoporosis: Continue home meds DVT GI prophylaxis: Lovenox, no GI prophylaxis indicated Further treatment strategy will be implemented as per the clinical course Result Diagram: 11/07/18213911/07/182139 Results 24hrs Laboratory Tests Test 11/07/18 21:40 White Blood Count 9.6 # Red Blood Count 4.38 Hemoglobin 12.3 Hematocrit 38.2 Mean Corpuscular Volume 87.2 Mean Corpuscular Hemoglobin 28.1 L Mean Corpuscular Hemoglobin Concent 32.2 Red Cell Distribution Width 13.7 # Platelet Count 212 Mean Platelet Volume 11.2 H Immature Granulocytes % 0.300 Neutrophils % 61.8 Lymphocytes % 26.5 Monocytes % 8.5 Eosinophils % 2.7 Basophils % 0.2 Nucleated Red Blood Cells % 0.0 Immature Granulocytes # 0.030 Neutrophils # 5.9 Lymphocytes # 2.5 Monocytes # 0.8 Eosinophils # 0.3 Basophils # 0.0 Nucleated Red Blood Cells # 0.0 Sodium Level 138 Potassium Level 4.9 Chloride Level 100 Carbon Dioxide Level 27 Anion Gap 11 Blood Urea Nitrogen 22 H Creatinine 1.00 Est Glomerular Filtrat Rate mL/min Glucose Level 240 H Calcium Level 10.1 Troponin I 0.024 HPI/ROS Admit Date/Time Admit Date/Time Hx of Present Illness This is a 73-year-old female who presented to the emergency department with symptoms of dyspnea. ED physician reported that the patient was expensing chest pain, however upon my encounter with the patient she denied having chest pain. She states that she has dyspnea at rest and on exertion. She states that this has gotten worse. She is compliant with her medications. She denies any lower extremity swelling at the current time. She denies any wheezing or orthopnea. She was treated previously for breast cancer and her last chemotherapy was in July. Allergies: NKDA Medications: Alendronate Amitriptyline Aspirin Atorvastatin Calcium carbonate Carvedilol Digoxin Fenofibrate Furosemide Gabapentin Insulin glargine Insulin lispro Lisinopril Janumet Vitamin D 2 ROS Const: As per HPI Eyes : No pain discharge or redness or change in visual acuity ENT: No pain, sore throat, congestion, congestion, dysphagia or discharge Respiratory: As per HPI Cardiovascular: No chest pain, palpitation, PND, or edema GI : no change in appetite, abdominal pain, nausea, vomiting, diarrhea, constipation, or change in the color his stool Genitourinary: No dysuria, hematuria, flank pain , discharge or CVA tenderness Musculoskeletal: No joint pain, back pain, neck pain, restricted range of motion in neck or joints Skin: No rash, bruising or hives Neuro: No headache, dizziness, syncope, seizure, focal weakness Endocrine: No polyuria, polydipsia, temperature intolerance Psych: No hallucination, depression, anxiety or suicidal ideation PMH/Family/Social Past Medical History Systolic CHF suspect chemotherapy-induced Diabetes mellitus Cardiomyopathy with left ventricular ejection fraction 30% Breast cancer status post chemotherapy Hypertension Hyperlipidemia Osteoporosis Medications Current Medications Nitroglycerin (Nitroglycerin (Sl Tab) 0.4 Mg) 1 tab Q5M UP TO 3 DOSES PRN SL .CHEST PAIN Last administered on 11/07/18at 21:43; Admin Dose 1 TAB; Start 11/07/18 at 21:30 Ondansetron HCl (Zofran Inj) 4 mg ER BRIDGE PRN IV NAUSEA/VOMITING; Start 11/07/18 at 23:00; Stop 11/08/18 at 22:59 Acetaminophen (Tylenol Tab) 650 mg ER BRIDGE PRN PO .MILD PAIN 1-3 OR TEMP; Start 11/07/18 at 23:00; Stop 11/08/18 at 22:59 Coded Allergies: No Known Drug Allergies (Verified Allergy, Unknown, 11/08/18) Past Surgical History Right breast lumpectomy, tonsillectomy Family History Significant Family History: no pertinent family hx Social History Alcohol Use: none Smoking Status: Never smoker Drug Use: none Exam/Review of Systems Vital Signs Vitals Vital Signs Date Temp Pulse Resp B/P (MAP) Pulse Ox O2 O2 Flow FiO2 Time Delivery Rate 11/07/18 97.9 87 20 131/73 98 21:12 (92) Exam Exam General: Patient is a pleasant female currently lying down in bed in no acute distress HEENT: Atraumatic, normocephalic. The pupils are equal, round and reactive. Extraocular motor are intact Neck: Supple with full range of motion. No rigidity or meningismus Chest: Nontender Lungs: Clear to auscultation bilaterally no crackles rales or wheezing, n onlabored breathing Heart: Normal S1-S2, Regular rhythm and rate. No murmur, S3, or S4 Abdomen: Soft , nontender, nondistended , bowel sounds are present. No guarding no rebound tenderness , No masses or organomegaly. No costovertebral temporal angle mass Extremities: Normal to inspection, no edema no cyanosis Neurologic: Normal mental status, speech normal, cranial nerves II through XII are intact, motor and sensory are intact, Additional Comments EKG Rate/Rhythm: Regular rate and rhythm at a rate of 82 Intervals: Normal Impression: No evidence of ischemia or arrhythmia PROCEDURE: XR Chest. CLINICAL INDICATION: Chest pain TECHNIQUE: Frontal chest x-ray was obtained. COMPARISON: Chest x-ray August 25, 2018 FINDINGS: The heart is not enlarged. Mediastinum is not widened. No hilar masses seen. Lungs are clear of any infiltrates. There is no effusion or pneumothorax. The osseous structures appear normal. IMPRESSION: No evidence for active cardiopulmonary disease. .Marbin Castelan MD, MD Date Time Electronically viewed and signed by .Marbin Castelan MD, on 11/07/2018 22 :02 .A/ CC: JANESSA MEDINA MD [id number] REGINA MONREAL Nov 07, 2018 23:01
[2018-11-08] VITALS (13 sets, daily range): BP systolic 100–135; BP diastolic 52–78; PULSE 61–87; RESP 16–20; Ht 152.4 cm; Wt 72.2 kg
[2018-11-08] MEDS: ACCU-CHEK XX SCH (02:39)
[2018-11-08] MEDS ORDERED: SOD CHLORIDE 0.9% 100 ML ONE ×2 (05:34→06:03)
[2018-11-08] MEDS ORDERED: IODIXANOL LOCM 100 ML BTL ONE ×2 (05:34→06:03)
[2018-11-08] MEDS ORDERED: ALENDRONATE 70 MG TAB PO SCH (07:00)
[2018-11-08] MEDS: INSULIN ASPART [NOVOLOG] 3 ML PEN SC SCH ×4 (08:00→22:07)
[2018-11-08] MEDS ORDERED: NON-FORMULARY/PATIENT OWN MED (Fenofibrate, Micronized (Fenofibrate) 134 MG) PO SCH (09:00)
[2018-11-08] MEDS: ASPIRIN 81 MG TAB PO SCH (09:15)
[2018-11-08] MEDS: AMITRIPTYLINE 50 MG TAB PO SCH (09:16)
[2018-11-08] MEDS: LISINOPRIL 5 MG TAB PO SCH (09:16)
[2018-11-08] MEDS: FUROSEMIDE 40 MG TAB PO SCH (09:17)
[2018-11-08] MEDS: ASPIRIN (EC) 81 MG TAB PO SCH (09:17)
[2018-11-08] MEDS: FENOFIBRATE 145 MG TAB PO SCH (09:17)
[2018-11-08] MEDS: CALCIUM CARBONATE 1.25 GM TAB PO SCH (09:17)
[2018-11-08] MEDS: GABAPENTIN 300 MG CAP PO SCH ×3 (09:17→22:00)
[2018-11-08] MEDS: ENOXAPARIN 40 MG/0.4 ML SYG SC SCH (09:28)
--- NOTE | 2018-11-08 11:35 | RADRPT ---
Echocardiogram Report Patient Name: BRANDON PICHARDOPatient ID: [id number] : 1945 (73y )Study Date: 11/08/2018 7:07:43 AM Gender: FAccession #: [id number] Tech: Haley Mcneil RDCS Location: [id number] Ref.Physician: REGINA MONREAL Height(Cm): BSA: Weight(Kg): Quality: AdequateOrder Physician: REGINA MONREAL Account #: Procedures: Echocardiographic Report: Transthoracic echocardiogram with complete 2D, M-Mode, and doppler examination. Indications: Shortness of breath. On chemo. Measurements: 2D/M Mode Doppler Measurement Value Normal Range Measurement Value Normal Range LVIDd 2D 5.0 [ 3.8 - 5.2 ] cm AV Peak Carlos 1.3 [ 100.0 - 170.0 ] cm/sec LVIDs 2D 3.5 [ 2.2 - 3.5 ] cm AV Peak PG 6.0 [ 2.0 - 9.0 ] mmHg LVPWd 2D 1.0 [ 0.6 - 0.9 ] cm LVOT Peak Carlos 0.9 [ 70.0 - 110.0 ] cm/sec IVSd 2D 0.9 [ 0.6 - 0.9 ] cm LVOT Peak PG 3.0 [ 2.0 - 6.0 ] mmHg IVS/LVPW 2D 0.9 ratio MV E Peak Carlos 0.6 [ 60.0 - 130.0 ] cm/sec AoR Diam 2D 2.5 [ 2.3 - 3.1 ] cm MV A Peak Carlos 1.0 [ 100.0 - 120.0 ] cm/sec LA/Ao 2D 1 ratio MV E/A 0.6 [ 0.8 - 1.5 ] ratio LA Dimen 2D 2.9 [ 2.7 - 3.8 ] cm MV Decel Time 158 [ 104 - 258 ] msec Lat E` Carlos 0.1 [ 10.0 - 15.0 ] cm/sec Med E` Carlos 0.0 cm/sec MV E/A 0.6 [ 0.8 - 1.5 ] ratio TR Peak Carlos 1.7 [ 100.0 - 280.0 ] cm/sec TR Peak PG 12.0 mmHg RVSP 15.0 [ 10.0 - 36.0 ] mmHg RA Pressure 3.0 mmHg Findings: Left Ventricle: Lower limits of normal systolic function. Normal left ventricular cavity size. Normal left ventricular wall thickness. Ejection fraction is visually estimated at 50-55 %. Tissue Doppler/Mitral Doppler indices are consistent with impaired relaxation (Stage I diastolic dysfunction). Right Ventricle: Normal right ventricular size. Normal right ventricular systolic function. Left Atrium: The left atrium is normal in size. Right Atrium: The right atrium is normal in size. Mitral Valve: Mitral valve leaflets appear moderately thickened. Mild mitral annular calcification. Trace mitral regurgitation. Aortic Valve: Normal appearance of the aortic valve. No significant aortic stenosis or insufficiency. Tricuspid Valve: Normal appearance and function of the tricuspid valve with trace physiologic regurgitation. Pulmonic Valve: Normal pulmonic valve appearance. Pericardium: Normal pericardium with no significant pericardial effusion. Aorta: Normal aortic root. IVC: Normal size and normal respiratory collapse consistent with normal right atrial pressure. Conclusions: Lower limits of normal systolic function. Normal left ventricular cavity size. Normal left ventricular wall thickness. Ejection fraction is visually estimated at 50-55 %. Tissue Doppler/Mitral Doppler indices are consistent with impaired relaxation (Stage I diastolic dysfunction). Normal right ventricular size. Normal right ventricular systolic function. The left atrium is normal in size. The right atrium is normal in size. No significant valvular stenosis or regurgitation seen. Normal pericardium with no significant pericardial effusion. Electronically Signed By: Lucas Otto 2018-11-08 11:34:24 PDT
[2018-11-08] MEDS: DIGOXIN 0.125 MG TAB PO SCH (13:32)
--- NOTE | 2018-11-08 13:38 | PN ---
Date/Time of Note Date/Time of Note DATE: 11/08/18 TIME: 13:32 Assessment/Plan VTE Prophylaxis SCD applied (from Nsg): Yes SCD contraindicated: low risk/ambulating (dyspnea at rest and on exertion: Secondary to underlying cardiomyopathy, PE. Patient has a clear chest x-ray. She is not tachycardic. Her last chemotherapy was in July according to her. She has a history of an ejection fraction of approximately 30%. I will proceed with a echocardiogram to evaluate the patient's current heart function. Given her cancer history I will also order a stat CTA of the chest to rule out pulmonary embolism. She does not appear to be volume overloaded. We will consult cardiology Dr. Otto. Walking pulse ox, ABG) Pharmacological prophylaxis: NA/contraindicated Pharm contraindication: low risk/ambulating Lines/Catheters IV Catheter Type (from Nrsg): Saline Lock Assessment/Plan Assessment/Plan 1. Acute chest pain with dyspnea - resolved - serial trops negative - CTA negative for PE. Discussed nodule seen and need for outpatient monitoring - Per son, her chemo was stopped 2 months ago due to effects on the heart. She had a hx EF 30% - Cardiology was consulted for further recommendations 2. Compensated systolic heart failure - ECHO results noted from 07/2018 - BNP with normal limits and no signs of congestion on CXR 3. DM - A1c noted - ISS and accuchecks - per patient, sugars well controlled at home and elevated inhouse 4. h/o CM - most likely chemotherapy induced 5. h/o Breast cancer - s/p lumpectomy, she had her last chemotherapy in July 2018 - follow up as outpatient 6. HTN - stable 7. HLD - Continue home medications 8. Osteoporosis - stable 9. Disposition - Awaiting Cardiology consultation. If cleared, will d/c home Result Diagram: 11/08/18 0256 11/08/18 0256 Results 24hrs Laboratory Tests Test 11/07/18 21:40 11/08/18 02:16 11/08/18 02:56 11/08/18 08:00 White Blood Count 9.6 # 8.6 Red Blood Count 4.38 4.10 L Hemoglobin 12.3 11.6 L Hematocrit 38.2 35.7 L Mean Corpuscular 87.2 87.1 Volume Mean Corpuscular 28.1 L 28.3 L Hemoglobin Mean Corpuscular 32.2 32.5 Hemoglobin Concen t Red Cell 13.7 # 13.7 Distribution Width Platelet Count 212 152 # Mean Platelet 11.2 H 10.9 H Volume Immature 0.300 0.600 H Granulocytes % Neutrophils % 61.8 60.9 Lymphocytes % 26.5 25.6 Monocytes % 8.5 9.6 Eosinophils % 2.7 3.1 Basophils % 0.2 0.2 Nucleated Red 0.0 0.0 Blood Cells % Immature 0.030 0.050 H Granulocytes # Neutrophils # 5.9 5.2 Lymphocytes # 2.5 2.2 Monocytes # 0.8 0.8 Eosinophils # 0.3 0.3 Basophils # 0.0 0.0 Nucleated Red 0.0 0.0 Blood Cells # Sodium Level 138 138 Potassium Level 4.9 4.5 Chloride Level 100 103 Carbon Dioxide 27 25 Level Anion Gap 11 10 Blood Urea 22 H 24 H Nitrogen Creatinine 1.00 0.92 Est Glomerular Filtrat Rate mL/min Glucose Level 240 H 249 H Calcium Level 10.1 9.4 Troponin I 0.024 0.016 Bedside Glucose 248 H Hemoglobin A1c 9.5 H Magnesium Level 1.8 Total Bilirubin 0.4 Direct Bilirubin 0.00 Indirect 0.4 Bilirubin Aspartate Amino 44 Transf (AST/SGOT) Alanine 56 Aminotransferase (ALT/SGPT) Alkaline 50 Phosphatase Creatine Kinase 34 Creatine Kinase 3.3 Index Creatinine Kinase 1.12 MB (Mass) Total Protein 6.8 Albumin 3.6 Globulin 3.20 Albumin/Globulin 1.12 Ratio Triglycerides 259 H Level Cholesterol Level 115 LDL Cholesterol, 39 Calculated HDL Cholesterol 24 L Cholesterol/HDL 4.7 Ratio Thyroid 4.030 Stimulating Hormone (TSH) Blood Gas Blood arterial Specimen Source Arterial Blood 11/08/2018 8:35:0 Date Drawn 0 AM Arterial Blood pH 7.493 H (Temp corrected) Arterial Blood 32.4 L pCO2 (Temp correct) Arterial Blood 87.2 pO2 (Temp corrected) Arterial Blood 24.3 HCO3 Arterial Blood 1.6 Base Excess Arterial Blood 96.8 Oxygen Saturation Natalio Test ACCEPTAB Arterial Blood Left Radial Gas Puncture Site Arterial 0.4 Blood Carboxyhemo globin Arterial Blood 0.1 Methemoglobin Blood Gas A-a O2 23.7 Differential Oxyhemoglobin 96.3 Percent Blood Gas 37.0 Temperature Blood Gas ROOM AIR Modality FiO2 21.0 Blood Gas P Shilo [employer] Notified Whom Blood Gas 11/08/2018 8:46:1 Notified Time 0 AM Test 11/08/18 09:13 11/08/18 09:22 11/08/18 11:50 Bedside Glucose 263 H 333 H Creatine Kinase 33 Creatine Kinase 3.1 Index Creatinine Kinase 1.01 MB (Mass) Troponin I 0.017 Subjective 24 Hr Interval Summary Free Text/Dictation Patient states shes feeling better and denies any chest pain. No acute overnight events. Son at bedside and all questions addressed. Exam/Review of Systems Exam Vitals Vital Signs Date Temp Pulse Resp B/P (MAP) Pulse Ox O2 O2 Flow FiO2 Time Delivery Rate 11/08/18 87 12:20 11/08/18 97.8 18 118/69 96 Room Air 11:07 (85) Intake and Output 11/07/18 11/07/18 11/08/18 1515:00 23:00 07:00 IntakeIntake Total 250 ml BalanceBalance 250 ml Exam General: Patient is a pleasant female, sitting at edge of bed Neck: Supple Chest: Nontender Lungs: Clear to auscultation bilaterally no crackles rales or wheezing, nonlabored breathing Heart: Normal S1-S2, Regular rhythm and rate. No murmur, S3, or S4 Abdomen: Soft , nontender, nondistended , bowel sounds are present. No guarding no rebound tenderness Extremities: Normal to inspection, no edema no cyanosis Results Results 24hrs Laboratory Tests Test 11/07/18 21:40 11/08/18 02:16 11/08/18 02:56 11/08/18 08:00 White Blood Count 9.6 # 8.6 Red Blood Count 4.38 4.10 L Hemoglobin 12.3 11.6 L Hematocrit 38.2 35.7 L Mean Corpuscular 87.2 87.1 Volume Mean Corpuscular 28.1 L 28.3 L Hemoglobin Mean Corpuscular 32.2 32.5 Hemoglobin Concen t Red Cell 13.7 # 13.7 Distribution Width Platelet Count 212 152 # Mean Platelet 11.2 H 10.9 H Volume Immature 0.300 0.600 H Granulocytes % Neutrophils % 61.8 60.9 Lymphocytes % 26.5 25.6 Monocytes % 8.5 9.6 Eosinophils % 2.7 3.1 Basophils % 0.2 0.2 Nucleated Red 0.0 0.0 Blood Cells % Immature 0.030 0.050 H Granulocytes # Neutrophils # 5.9 5.2 Lymphocytes # 2.5 2.2 Monocytes # 0.8 0.8 Eosinophils # 0.3 0.3 Basophils # 0.0 0.0 Nucleated Red 0.0 0.0 Blood Cells # Sodium Level 138 138 Potassium Level 4.9 4.5 Chloride Level 100 103 Carbon Dioxide 27 25 Level Anion Gap 11 10 Blood Urea 22 H 24 H Nitrogen Creatinine 1.00 0.92 Est Glomerular Filtrat Rate mL/min Glucose Level 240 H 249 H Calcium Level 10.1 9.4 Troponin I 0.024 0.016 Bedside Glucose 248 H Hemoglobin A1c 9.5 H Magnesium Level 1.8 Total Bilirubin 0.4 Direct Bilirubin 0.00 Indirect 0.4 Bilirubin Aspartate Amino 44 Transf (AST/SGOT) Alanine 56 Aminotransferase (ALT/SGPT) Alkaline 50 Phosphatase Creatine Kinase 34 Creatine Kinase 3.3 Index Creatinine Kinase 1.12 MB (Mass) Total Protein 6.8 Albumin 3.6 Globulin 3.20 Albumin/Globulin 1.12 Ratio Triglycerides 259 H Level Cholesterol Level 115 LDL Cholesterol, 39 Calculated HDL Cholesterol 24 L Cholesterol/HDL 4.7 Ratio Thyroid 4.030 Stimulating Hormone (TSH) Blood Gas Blood arterial Specimen Source Arterial Blood 11/08/2018 8:35:0 Date Drawn 0 AM Arterial Blood pH 7.493 H (Temp corrected) Arterial Blood 32.4 L pCO2 (Temp correct) Arterial Blood 87.2 pO2 (Temp corrected) Arterial Blood 24.3 HCO3 Arterial Blood 1.6 Base Excess Arterial Blood 96.8 Oxygen Saturation Natalio Test ACCEPTAB Arterial Blood Left Radial Gas Puncture Site Arterial 0.4 Blood Carboxyhemo globin Arterial Blood 0.1 Methemoglobin Blood Gas A-a O2 23.7 Differential Oxyhemoglobin 96.3 Percent Blood Gas 37.0 Temperature Blood Gas ROOM AIR Modality FiO2 21.0 Blood Gas P Shilo, [employer] Notified Whom Blood Gas 11/08/2018 8:46:1 Notified Time 0 AM Test 11/08/18 09:13 11/08/18 09:22 11/08/18 11:50 Bedside Glucose 263 H 333 H Creatine Kinase 33 Creatine Kinase 3.1 Index Creatinine Kinase 1.01 MB (Mass) Troponin I 0.017 Medications Medication Current Medications Nitroglycerin (Nitroglycerin (Sl Tab) 0.4 Mg) 1 tab Q5M UP TO 3 DOSES PRN SL .CHEST PAIN Last administered on 11/07/18at 21:43; Admin Dose 1 TAB; Start 11/07/18 at 21:30 IV Flush (NS 3 ml) 3 ml PER PROTOCOL IV ; Start 11/07/18 at 23:00 Ondansetron HCl (Zofran Inj) 4 mg Q6H PRN IV NAUSEA/VOMITING; Start 11/07/18 at 23:00 Aspirin (Aspirin) 81 mg DAILY PO Last administered on 11/08/18at 09:15; Admin Dose 81 MG; Start 11/08/18 at 09:00 Nitroglycerin (Nitroglycerin (Sl Tab) 0.4 Mg) 1 tab Q5M PRN SL .CHEST PAIN; Start 11/07/18 at 23:00 Acetaminophen (Tylenol Tab) 650 mg Q6H PRN PO .PAIN 1-3 OR TEMP; Start 11/07/18 at 23:00 Morphine Sulfate (morphine) 2 mg Q4H PRN IV .PAIN 7-10; Start 11/07/18 at 23:00 Docusate Sodium (Colace) 100 mg Q12H PRN PO .CONSTIPATION; Start 11/07/18 at 23:00 Bisacodyl (Dulcolax) 5 mg DAILY PRN PO .CONSTIPATION; Start 11/07/18 at 23:00 Enoxaparin Sodium (Lovenox) 40 mg DAILY SC Last administered on 11/08/18at 09:28; Admin Dose 40 MG; Start 11/07/18 at 23:00 Alendronate Sodium (Fosamax) 70 mg Fr@0700 PO Last administered on 11/08/18at 09:50; Admin Dose 70 MG; Start 11/08/18 at 07:00 Amitriptyline HCl (Elavil) 100 mg DAILY PO Last administered on 11/08/18at 09:16; Admin Dose 100 MG; Start 11/08/18 at 09:00 Aspirin (Halfprin) 81 mg DAILY PO Last administered on 11/08/18at 09:17; Admin Dose 81 MG; Start 11/08/18 at 09:00 Atorvastatin Calcium (Lipitor) 40 mg QHS PO ; Start 11/08/18 at 21:00 Calcium Carbonate (Oyster Shell Calcium) 1.25 gm DAILY PO Last administered on 11/08/18 09:17; Admin Dose 1.25 GM; Start 11/08/18 at 09:00 Carvedilol (Coreg) 12.5 mg BID PO Last administered on 11/08/18 09:16; Admin Dose 12.5 MG; Start 11/08/18 at 09:00 Digoxin (Digoxin) 0.125 mg DAILY@13 PO ; Start 11/08/18 at 13:00 Furosemide (Lasix) 40 mg DAILY PO Last administered on 11/08/18 09:17; Admin Dose 40 MG; Start 11/08/18 at 09:00 Gabapentin (Neurontin) 300 mg TID PO Last administered on 11/08/18 09:17; Admin Dose 300 MG; Start 11/08/18 at 09:00 Insulin Glargine (Lantus) 40 units QHS SC ; Start 11/08/18 at 21:00 Insulin Lispro Protam/Lispro Human (Humalog Mix (75/ 25)) 10 units QPM SC ; Start 11/08/18 at 21:00 Lisinopril (Zestril) 5 mg DAILY PO Last administered on 11/08/18 09:16; Admin Dose 5 MG; Start 11/08/18 at 09:00 Diagnostic Test (Pha) (Accu-Chek) 1 ea 02 XX Last administered on 11/08/18 02:39; Admin Dose 1 EA; Start 11/08/18 at 02:00 Insulin Aspart (Novolog Insulin Pen) NOVOLOG *MILD* ALGORITHM WITH MEALS BEDTIME SC Last administered on 11/08/18 12:03; Admin Dose 5 UNIT; Start 11/08/18 at 08:00 Fenofibrate (Tricor) 145 mg DAILY PO Last administered on 11/08/18 09:17; Admin Dose 145 MG; Start 11/08/18 at 09:00 FABY THOMSON MD Nov 08, 2018 13:38
[2018-11-08] MEDS ORDERED: INSULIN LISPRO PROT/LISP (75/25) 3ML KWIKPEN SC SCH (21:00)
[2018-11-08] MEDS: ATORVASTATIN 40 MG TAB PO SCH (21:59)
[2018-11-08] MEDS: FAMOTIDINE 20 MG TAB PO SCH (22:01)
[2018-11-08] MEDS: INSULIN GLARGINE [LANTus] (100 UNITS/ML) SYG SC SCH (22:08)
[2018-11-09] VITALS (13 sets, daily range): BP systolic 109–155; BP diastolic 58–79; PULSE 71–97; RESP 15–85
[2018-11-09] MEDS: ACCU-CHEK XX SCH (02:00)
--- NOTE | 2018-11-09 06:50 | CONS ---
DATE OF ADMISSION: 11/07/2018 DATE OF CONSULTATION: 11/08/2018 TYPE OF CONSULTATION: Pulmonary. REASON FOR CONSULTATION: Shortness of breath, assess for heart failure. REQUESTING PHYSICIAN: Dr. Monreal from the hospitalist service, Jayashree Guevara MD. HISTORY OF PRESENT ILLNESS: Ms. Dgeroot is a 73-year-old female with a history of congestive heart failure, breast cancer status post chemotherapy, hypertension, dyslipidemia, osteoporosis, who prese nted to the emergency room with complaints of dyspnea on exertion and also substernal chest pain per ER physician, although patient denies. Upon arrival in the Emergency Department, temperature of 97.9 , blood pressure 131/73, pulse 87, respiratory rate 20, satting 98%. The patient's labs notable for white count 9.6, hemoglobin 12.3, platelet count 212. Sodium of 138, potassium 4.9, creatinine 1.0, BUN 22, glucose of 240, calcium 10.1. Troponin negative. ABG with a pH of 7.493 and a PaO2 of 87, pCO2 of 32. Patient underwent a chest x-ray revealing no evidence for acute cardiopulmonary abnormal ities. The patient underwent a cardiac CT-CTA revealing indeterminate 6 mm right middle lobe pulmona ry nodule, mild cardiomegaly as well as pulmonary embolism. The patient's electrocardiogram revealed normal sinus rhythm at a rate of 80, normal axis, normal intervals with lateral biphasic T-wave abno rmalities. The patient subsequently has been admitted to the floor and since admit to the floor, has had negative troponins x3. The patient continues to have shortness of breath and has been placed on gentle Lasix diuresis. PAST MEDICAL HISTORY: As above in HPI. MEDICATIONS CURRENTLY IN HOSPITAL: 1. Lipitor. 2. Folic acid. 3. Lantus. 4. Pepcid 20 mg p.o. b.i.d. 5. Digoxin 0.125 mg daily. 6. Aspirin 81 mg a day. 7. Elavil. 8. Coreg 12.5 p.o. b.i.d. 9. Lasix 20 daily. 10. Neurontin 200 mg t.i.d. 11. Zestril 5 mg daily. 12. Tricor 145 mg daily. 13. Insulin sliding scale. 14. Morphine. 15. Tylenol. 16. Colace. 17. Lovenox 40 mg every day. ALLERGIES: No known drug allergies. SOCIAL HISTORY: No current tobacco, ETOH or illicit drug use. FAMILY HISTORY: No history of sudden cardiac or early CAD. REVIEW OF SYSTEMS: As above in HPI. CONSTITUTIONAL: No fevers, chills. PULMONARY: Positive for shortness of breath. CARDIOVASCULAR: No chest pain, but per report chest pain. GASTROINTESTINAL: No nausea, vomiting. GENITOURINARY: No hematuria, dysuria. MUSCULOSKELETAL: Degenerative joint disease. PSYCHIATRIC: No documented psych history. HEMATOLOGY/ONCOLOGY: History of breast cancer status post chemotherapy. PHYSICAL EXAMINATION: VITAL SIGNS: Temperature of 97.8, blood pressure most recently 123/78, pulse 78, respiratory rate 16 , satting 95%. GENERAL: The patient is alert, awake, in no acute distress. NECK: JVP approximately 9 cm of water. CHEST: Fair movement throughout, mild decreased breath sounds at bases bilaterally. HEART: Regular rate and rhythm. Normal S1, S2, I/ systolic murmur, nondisplaced PMI. ABDOMEN: Positive bowel sounds, soft. EXTREMITIES: No significant pitting edema, 1+ pulses bilateral posterior tibial. LABORATORY DATA: Most recent from today, sodium 138, potassium 4.5, creatinine 0.9, albumin 3.6. TS H of 4.0, white blood cell count 8.6, hemoglobin 1.6, platelet count 152. IMAGING STUDIES: As above in HPI. No further imaging studies for my review at this time. ECG: As above in HPI. No further electrocardiograms for my review at this time. IMPRESSION: 1. History of cardiomyopathy with decreased left ventricular ejection fraction by echo 07/2018, 30%. 2. Shortness of breath, dyspnea on exertion, likely due to low EF. 3. Hypertension. 4. Dyslipidemia. 5. Diabetes mellitus. 6. Anemia. 7. Osteoporosis. 8. History of breast carcinoma status post chemotherapy. RECOMMENDATIONS: 1. At this time, we would maintain patient on telemetry monitoring to follow rhythm and rate closely . 2. We will continue the patient's baseline carvedilol and Zestril for treatment of cardiomyopathy at this time and continue patient's gentle Lasix diuresis, following strict I's and O's to grade diures is closely. Check a BNP to further assess patient's current volume status. Patient does appear to b e in significant volume overload at this time. 3. Continue the patient's digoxin. 4. Continue the patient's aspirin prophylaxis against cardiovascular events. 5. Consider stress testing for further evaluation and possible etiology to patient's low EF although may be related to chemotherapeutic regimen. Thank you for allowing me to take part in the care of this patient. I will continue to follow closel y with you with further recommendations made as the patient progresses through his inpatient hospital clinical course. Dictated By: GIOVANI HANCOCK/NANDA Conf#: [id number] DID#: [id number] CC: REGINA MONREAL MD; JAYASHREE GUEVARA MD;*EndCC*
[2018-11-09] MEDS: INSULIN ASPART [NOVOLOG] 3 ML PEN SC SCH ×4 (08:02→21:57)
[2018-11-09] MEDS: ASPIRIN (EC) 81 MG TAB PO SCH (09:00)
--- NOTE | 2018-11-09 09:44 | CONS ---
Assessment/Plan Assessment/Plan Assessment/Plan (Daily) 1. History of cardiomyopathy with decreased left ventricular ejection fraction by echo 07/2018, 30%. 2. Shortness of breath, dyspnea on exertion, likely due to low EF. 3. Hypertension. 4. Dyslipidemia. 5. Diabetes mellitus. 6. Anemia. 7. Osteoporosis. 8. History of breast carcinoma status post chemotherapy. RECOMMENDATIONS: 1. At this time, we would maintain patient on telemetry monitoring to follow rhythm and rate closely. 2. We will continue the patient's baseline carvedilol and Zestril for treatment of cardiomyopathy at this time and continue patient's gentle Lasix diuresis, fol lowing strict I's and O's to grade diuresis closely. . Patient does appear to be in significant volume overload at this time. 3. Continue the patient's digoxin. 4. Continue the patient's aspirin prophylaxis against cardiovascular events. 5. Consider stress testing for further evaluation and possible etiology to patient's low EF although may be related to chemotherapeutic regimen this admission or as outptient Consultation Date/Type/Reason Admit Date/Time Nov 07, 2018 at 22:52 Initial Consult Date Type of Consult Cardiology Date/Time of Note DATE: 11/09/18 TIME: 09:43 24 HR Interval Summary Free Text/Dictation the patient stable overnight Exam/Review of Systems Vital Signs Vitals Vital Signs Date Temp Pulse Resp B/P (MAP) Pulse Ox O2 O2 Flow FiO2 Time Delivery Rate 11/09/18 81 08:01 11/09/18 Room Air 07:39 11/09/18 98.3 18 110/62 95 07:12 (78) Intake and Output 11/08/18 11/08/18 11/09/18 1515:00 23:00 07:00 IntakeIntake Total 1100 ml 300 ml BalanceBalance 1100 ml 300 ml Labs Result Diagram: 11/08/18 0256 11/08/18 0256 Results 24hrs Laboratory Tests Test 11/08/18 11:50 11/08/18 17:28 11/09/18 02:23 11/09/18 07:54 Bedside Glucose 333 H 235 H 259 H 274 H Test 11/09/18 08:45 B-Type Natriuretic 657 H Peptide Medications Medications Current Medications Nitroglycerin (Nitroglycerin (Sl Tab) 0.4 Mg) 1 tab Q5M UP TO 3 DOSES PRN SL .CHEST PAIN Last administered on 11/07/18at 21:43; Admin Dose 1 TAB; Start 11/07/18 at 21:30 IV Flush (NS 3 ml) 3 ml PER PROTOCOL IV ; Start 11/07/18 at 23:00 Ondansetron HCl (Zofran Inj) 4 mg Q6H PRN IV NAUSEA/VOMITING; Start 11/07/18 at 23:00 Aspirin (Aspirin) 81 mg DAILY PO Last administered on 11/08/18at 09:15; Admin Dose 81 MG; Start 11/08/18 at 09:00 Nitroglycerin (Nitroglycerin (Sl Tab) 0.4 Mg) 1 tab Q5M PRN SL .CHEST PAIN; Start 11/07/18 at 23:00 Acetaminophen (Tylenol Tab) 650 mg Q6H PRN PO .PAIN 1-3 OR TEMP; Start 11/07/18 at 23:00 Morphine Sulfate (morphine) 2 mg Q4H PRN IV .PAIN 7-10; Start 11/07/18 at 23:00 Docusate Sodium (Colace) 100 mg Q12H PRN PO .CONSTIPATION; Start 11/07/18 at 23:00 Bisacodyl (Dulcolax) 5 mg DAILY PRN PO .CONSTIPATION; Start 11/07/18 at 23:00 Enoxaparin Sodium (Lovenox) 40 mg DAILY SC Last administered on 11/08/18at 09:28; Admin Dose 40 MG; Start 11/07/18 at 23:00 Alendronate Sodium (Fosamax) 70 mg Fr@0700 PO Last administered on 11/08/18at 09:50; Admin Dose 70 MG; Start 11/08/18 at 07:00 Amitriptyline HCl (Elavil) 100 mg DAILY PO Last administered on 11/08/18at 09:16; Admin Dose 100 MG; Start 11/08/18 at 09:00 Aspirin (Halfprin) 81 mg DAILY PO Last administered on 11/08/18at 09:17; Admin Dose 81 MG; Start 11/08/18 at 09:00 Atorvastatin Calcium (Lipitor) 40 mg QHS PO Last administered on 11/08/18at 21 :59; Admin Dose 40 MG; Start 11/08/18 at 21:00 Calcium Carbonate (Oyster Shell Calcium) 1.25 gm DAILY PO Last administered on 11/08/18 09:17; Admin Dose 1.25 GM; Start 11/08/18 at 09:00 Carvedilol (Coreg) 12.5 mg BID PO Last administered on 11/08/18 22:00; Admin Dose 12.5 MG; Start 11/08/18 at 09:00 Digoxin (Digoxin) 0.125 mg DAILY@13 PO Last administered on 11/08/18 13:32; Admin Dose 0.125 MG; Start 11/08/18 at 13:00 Furosemide (Lasix) 40 mg DAILY PO Last administered on 11/08/18 09:17; Admin Dose 40 MG; Start 11/08/18 at 09:00 Gabapentin (Neurontin) 300 mg TID PO Last administered on 11/08/18 22:00; Admin Dose 300 MG; Start 11/08/18 at 09:00 Insulin Glargine (Lantus) 40 units QHS SC Last administered on 11/08/18 22:08; Admin Dose 40 UNITS; Start 11/08/18 at 21:00 Insulin Lispro Protam/Lispro Human (Humalog Mix (75/ 25)) 10 units QPM SC Last administered on 11/09/18 01:15; Admin Dose 10 UNITS; Start 11/08/18 at 21:00 Lisinopril (Zestril) 5 mg DAILY PO Last administered on 11/08/18 09:16; Admin Dose 5 MG; Start 11/08/18 at 09:00 Diagnostic Test (Pha) (Accu-Chek) 1 ea 02 XX Last administered on 11/09/18 02:00; Admin Dose 1 EA; Start 11/08/18 at 02:00 Insulin Aspart (Novolog Insulin Pen) NOVOLOG *MILD* ALGORITHM WITH MEALS BEDTIME SC Last administered on 11/09/18 08:02; Admin Dose 4 UNIT; Start 11/08/18 at 08:00 Fenofibrate (Tricor) 145 mg DAILY PO Last administered on 11/08/18 09:17; Admin Dose 145 MG; Start 11/08/18 at 09:00 Famotidine (Pepcid) 20 mg BID PO Last administered on 11/08/18 22:01; Admin Dose 20 MG; Start 11/08/18 at 21:00 ELAINA MASSEY MD Nov 09, 2018 09:44
[2018-11-09] MEDS: CALCIUM CARBONATE 1.25 GM TAB PO SCH (09:51)
[2018-11-09] MEDS: ASPIRIN 81 MG TAB PO SCH (09:51)
[2018-11-09] MEDS: ENOXAPARIN 40 MG/0.4 ML SYG SC SCH (09:53)
[2018-11-09] MEDS: AMITRIPTYLINE 50 MG TAB PO SCH (09:54)
[2018-11-09] MEDS: GABAPENTIN 300 MG CAP PO SCH ×2 (09:54→12:12)
[2018-11-09] MEDS: FAMOTIDINE 20 MG TAB PO SCH ×2 (09:54→21:41)
[2018-11-09] MEDS: FENOFIBRATE 145 MG TAB PO SCH (09:54)
[2018-11-09] MEDS: LISINOPRIL 5 MG TAB PO SCH (09:55)
[2018-11-09] MEDS: FUROSEMIDE 40 MG TAB PO SCH (09:55)
[2018-11-09] MEDS: DIGOXIN 0.125 MG TAB PO SCH (12:12)
--- NOTE | 2018-11-09 13:01 | PN ---
Date/Time of Note Date/Time of Note DATE: 11/09/18 TIME: 12:57 Assessment/Plan VTE Prophylaxis Risk score (from Ns)>0 risk: 3 SCD applied (from Ns): No SCD contraindicated: low risk/ambulating Pharmacological prophylaxis: LMWH Lines/Catheters IV Catheter Type (from Nrs): Saline Lock Urinary Cath still in place: No Assessment/Plan Assessment/Plan 1. Acute chest pain with dyspnea- improving - ECHO results noted with improvement in EF to 50% from 30% - serial trops negative - CTA negative for PE. Discussed nodule seen and need for outpatient monitoring - Cardiology consultation appreciated and considering stress test 2. Compensated systolic heart failure - ECHO results noted from 07/2018 - BNP with normal limits and no signs of congestion on CXR 3. DM - A1c noted - ISS and accuchecks 4. h/o CM - most likely chemotherapy induced 5. h/o Breast cancer - s/p lumpectomy, she had her last chemotherapy in July 2018 - follow up as outpatient 6. HTN - stable 7. HLD - Continue home medications 8. Osteoporosis - stable 9. Disposition - continue monitoring in Telemetry and further plan of care per Cardiology recommendations. Result Diagram: 11/08/18 0256 11/08/18 0256 Results 24hrs Laboratory Tests Test 11/08/18 17:28 11/09/18 02:23 11/09/18 07:54 11/09/18 08:45 Bedside Glucose 235 H 259 H 274 H B-Type Natriuretic 657 H Peptide Test 11/09/18 12:05 Bedside Glucose 320 H Subjective 24 Hr Interval Summary Free Text/Dictation Patient resting comfortably with no complaints of pain. No acute overnight events. Exam/Review of Systems Exam Vitals Vital Signs Date Temp Pulse Resp B/P (MAP) Pulse Ox O2 O2 Flow FiO2 Time Delivery Rate 11/09/18 Room Air 12:42 11/09/18 98.3 85 20 115/64 92 11:27 (81) Intake and Output 11/08/18 11/08/18 11/09/18 1515:00 23:00 07:00 IntakeIntake Total 1100 ml 300 ml BalanceBalance 1100 ml 300 ml Exam General: Patient is a pleasant female, resting comfortably Neck: Supple Chest: Nontender Lungs: Clear to auscultation bilaterally no crackles rales or wheezing, nonlabored breathing Heart: Normal S1-S2, Regular rhythm and rate. No murmur, S3, or S4 Abdomen: Soft , nontender, nondistended , bowel sounds are present. No guarding no rebound tenderness Extremities: Normal to inspection, no edema no cyanosis Results Results 24hrs Laboratory Tests Test 11/08/18 17:28 11/09/18 02:23 11/09/18 07:54 11/09/18 08:45 Bedside Glucose 235 H 259 H 274 H B-Type Natriuretic 657 H Peptide Test 11/09/18 12:05 Bedside Glucose 320 H Medications Medication Current Medications Nitroglycerin (Nitroglycerin (Sl Tab) 0.4 Mg) 1 tab Q5M UP TO 3 DOSES PRN SL .CHEST PAIN Last administered on 11/07/18at 21:43; Admin Dose 1 TAB; Start 11/07/18 at 21:30 IV Flush (NS 3 ml) 3 ml PER PROTOCOL IV ; Start 11/07/18 at 23:00 Ondansetron HCl (Zofran Inj) 4 mg Q6H PRN IV NAUSEA/VOMITING; Start 11/07/18 at 23:00 Aspirin (Aspirin) 81 mg DAILY PO Last administered on 11/09/18at 09:51; Admin Dose 81 MG; Start 11/08/18 at 09:00 Nitroglycerin (Nitroglycerin (Sl Tab) 0.4 Mg) 1 tab Q5M PRN SL .CHEST PAIN; Start 11/07/18 at 23:00 Acetaminophen (Tylenol Tab) 650 mg Q6H PRN PO .PAIN 1-3 OR TEMP; Start 11/07/18 at 23:00 Morphine Sulfate (morphine) 2 mg Q4H PRN IV .PAIN 7-10; Start 11/07/18 at 23:00 Docusate Sodium (Colace) 100 mg Q12H PRN PO .CONSTIPATION; Start 11/07/18 at 23:00 Bisacodyl (Dulcolax) 5 mg DAILY PRN PO .CONSTIPATION; Start 11/07/18 at 23:00 Enoxaparin Sodium (Lovenox) 40 mg DAILY SC Last administered on 11/09/18at 09:53; Admin Dose 40 MG; Start 11/07/18 at 23:00 Alendronate Sodium (Fosamax) 70 mg Fr@0700 PO Last administered on 11/08/18 09:50; Admin Dose 70 MG; Start 11/08/18 at 07:00 Amitriptyline HCl (Elavil) 100 mg DAILY PO Last administered on 11/09/18 09:54; Admin Dose 100 MG; Start 11/08/18 at 09:00 Aspirin (Halfprin) 81 mg DAILY PO Last administered on 11/08/18 09:17; Admin Dose 81 MG; Start 11/08/18 at 09:00 Atorvastatin Calcium (Lipitor) 40 mg QHS PO Last administered on 11/08/18 21:59; Admin Dose 40 MG; Start 11/08/18 at 21:00 Calcium Carbonate (Oyster Shell Calcium) 1.25 gm DAILY PO Last administered on 11/09/18 09:51; Admin Dose 1.25 GM; Start 11/08/18 at 09:00 Carvedilol (Coreg) 12.5 mg BID PO Last administered on 11/09/18 09:55; Admin Dose 12.5 MG; Start 11/08/18 at 09:00 Digoxin (Digoxin) 0.125 mg DAILY@13 PO Last administered on 11/09/18 12:12; Admin Dose 0.125 MG; Start 11/08/18 at 13:00 Furosemide (Lasix) 40 mg DAILY PO Last administered on 11/09/18 09:55; Admin Dose 40 MG; Start 11/08/18 at 09:00 Gabapentin (Neurontin) 300 mg TID PO Last administered on 11/09/18 12:12; Admin Dose 300 MG; Start 11/08/18 at 09:00 Insulin Glargine (Lantus) 40 units QHS SC Last administered on 11/08/18 22:08; Admin Dose 40 UNITS; Start 11/08/18 at 21:00 Insulin Lispro Protam/Lispro Human (Humalog Mix (75/ 25)) 10 units QPM SC Last administered on 11/09/18 01:15; Admin Dose 10 UNITS; Start 11/08/18 at 21:00 Lisinopril (Zestril) 5 mg DAILY PO Last administered on 11/09/18 09:55; Admin Dose 5 MG; Start 11/08/18 at 09:00 Diagnostic Test (Pha) (Accu-Chek) 1 ea 02 XX Last administered on 11/09/18at 02:00; Admin Dose 1 EA; Start 11/08/18 at 02:00 Insulin Aspart (Novolog Insulin Pen) NOVOLOG *MILD* ALGORITHM WITH MEALS BEDTIM E SC Last administered on 11/09/18at 12:10; Admin Dose 5 UNIT; Start 11/08/18 at 08:00 Fenofibrate (Tricor) 145 mg DAILY PO Last administered on 11/09/18 09:54; Admin Dose 145 MG; Start 11/08/18 at 09:00 Famotidine (Pepcid) 20 mg BID PO Last administered on 11/09/18 09:54; Admin Dose 20 MG; Start 11/08/18 at 21:00 FABY THOMSON MD Nov 09, 2018 13:01
[2018-11-09] MEDS ORDERED: SOD CHLORIDE 0.9% 500 ML IV ONE (17:00)
[2018-11-09] MEDS ORDERED: INSULIN LISPRO PROT/LISP (75/25) 3ML KWIKPEN SC SCH (21:00)
[2018-11-09] MEDS: ATORVASTATIN 40 MG TAB PO SCH (21:41)
[2018-11-09] MEDS: INSULIN GLARGINE [LANTus] (100 UNITS/ML) SYG SC SCH (21:49)
[2018-11-10] VITALS (8 sets, daily range): BP systolic 110–135; BP diastolic 56–78; PULSE 68–95; RESP 16–20
[2018-11-10] MEDS: ACCU-CHEK XX SCH (02:00)
[2018-11-10] MEDS: INSULIN ASPART [NOVOLOG] 3 ML PEN SC SCH ×2 (07:51→11:51)
[2018-11-10] MEDS: ASPIRIN (EC) 81 MG TAB PO SCH (08:21)
[2018-11-10] MEDS: FENOFIBRATE 145 MG TAB PO SCH (08:23)
[2018-11-10] MEDS: LISINOPRIL 5 MG TAB PO SCH (08:23)
[2018-11-10] MEDS: FAMOTIDINE 20 MG TAB PO SCH (08:23)
[2018-11-10] MEDS: CALCIUM CARBONATE 1.25 GM TAB PO SCH (08:23)
[2018-11-10] MEDS: FUROSEMIDE 40 MG TAB PO SCH (08:24)
[2018-11-10] MEDS: ASPIRIN 81 MG TAB PO SCH (09:00)
--- NOTE | 2018-11-10 11:27 | CONS ---
Consultation Date/Type/Reason Admit Date/Time Nov 09, 2018 at 06:27 Initial Consult Date Type of Consult Cardiology Date/Time of Note DATE: 11/10/18 TIME: 11:26 24 HR Interval Summary Free Text/Dictation 1. History of cardiomyopathy with decreased left ventricular ejection fraction by echo 07/2018, 30%. 2. Shortness of breath, dyspnea on exertion, likely due to low EF. 3. Hypertension. 4. Dyslipidemia. 5. Diabetes mellitus. 6. Anemia. 7. Osteoporosis. 8. History of breast carcinoma status post chemotherapy. RECOMMENDATIONS: 1. At this time, we would maintain patient on telemetry monitoring to follow rhythm and rate closely. 2. We will continue the patient's baseline carvedilol and Zestril for treatment of cardiomyopathy at this time and continue patient's gentle Lasix diuresis, following strict I's and O's to grade diuresis closely. . Patient does appear to be in significant volume overload at this time. 3. Continue the patient's digoxin. 4. Continue the patient's aspirin prophylaxis against cardiovascular events. 5. ischemic evaluation as outpatient Exam/Review of Systems Vital Signs Vitals Vital Signs Date Temp Pulse Resp B/P (MAP) Pulse Ox O2 O2 Flow FiO2 Time Delivery Rate 11/10/18 98.2 82 20 110/56 95 Room Air 11:05 (74) Intake and Output 11/09/18 11/09/18 11/10/18 1515:00 23:00 07:00 IntakeIntake Total 1200 ml 450 ml BalanceBalance 1200 ml 450 ml Exam Constitutional: alert, oriented Psych: no complaints Respiratory: clear to auscultation Cardiovascular: regular rate and rhythm Labs Result Diagram: 11/08/18 0256 11/08/18 0256 Results 24hrs Laboratory Tests Test 11/09/18 12:05 11/09/18 15:52 11/09/18 17:08 11/09/18 17:54 Bedside Glucose 320 H 240 H 218 199 Test 11/09/18 20:25 11/10/18 02:24 11/10/18 07:48 Bedside Glucose 203 295 H 287 H Medications Medications Current Medications Nitroglycerin (Nitroglycerin (Sl Tab) 0.4 Mg) 1 tab Q5M UP TO 3 DOSES PRN SL .CHEST PAIN Last administered on 11/07/18at 21:43; Admin Dose 1 TAB; Start 11/07/18 at 21:30 IV Flush (NS 3 ml) 3 ml PER PROTOCOL IV ; Start 11/07/18 at 23:00 Ondansetron HCl (Zofran Inj) 4 mg Q6H PRN IV NAUSEA/VOMITING; Start 11/07/18 at 23:00 Aspirin (Aspirin) 81 mg DAILY PO Last administered on 11/09/18at 09:51; Admin D ose 81 MG; Start 11/08/18 at 09:00 Nitroglycerin (Nitroglycerin (Sl Tab) 0.4 Mg) 1 tab Q5M PRN SL .CHEST PAIN; Start 11/07/18 at 23:00 Acetaminophen (Tylenol Tab) 650 mg Q6H PRN PO .PAIN 1-3 OR TEMP; Start 11/07/18 at 23:00 Morphine Sulfate (morphine) 2 mg Q4H PRN IV .PAIN 7-10; Start 11/07/18 at 23:00 Docusate Sodium (Colace) 100 mg Q12H PRN PO .CONSTIPATION; Start 11/07/18 at 23:00 Bisacodyl (Dulcolax) 5 mg DAILY PRN PO .CONSTIPATION; Start 11/07/18 at 23:00 Alendronate Sodium (Fosamax) 70 mg Fr@0700 PO Last administered on 11/08/18at 09:50; Admin Dose 70 MG; Start 11/08/18 at 07:00 Atorvastatin Calcium (Lipitor) 40 mg QHS PO Last administered on 11/09/18at 21:41; Admin Dose 40 MG; Start 11/08/18 at 21:00 Calcium Carbonate (Oyster Shell Calcium) 1.25 gm DAILY PO Last administered on 11/10/18at 08:23; Admin Dose 1.25 GM; Start 11/08/18 at 09:00 Carvedilol (Coreg) 12.5 mg BID PO Last administered on 11/10/18at 08:23; Admin Dose 12.5 MG; Start 11/08/18 at 09:00 Digoxin (Digoxin) 0.125 mg DAILY@13 PO Last administered on 11/09/18at 12:12; Admin Dose 0.125 MG; Start 11/08/18 at 13:00 Furosemide (Lasix) 40 mg DAILY PO Last administered on 11/10/18 08:24; Admin Dose 40 MG; Start 11/08/18 at 09:00 Insulin Glargine (Lantus) 40 units QHS SC Last administered on 11/09/18 21:49; Admin Dose 40 UNITS; Start 11/08/18 at 21:00 Lisinopril (Zestril) 5 mg DAILY PO Last administered on 11/10/18 08:23; Admin Dose 5 MG; Start 11/08/18 at 09:00 Diagnostic Test (Pha) (Accu-Chek) 1 ea 02 XX Last administered on 11/10/18 02:00; Admin Dose 1 EA; Start 11/08/18 at 02:00 Insulin Aspart (Novolog Insulin Pen) NOVOLOG *MILD* ALGORITHM WITH MEALS BEDTIME SC Last administered on 11/10/18 07:51; Admin Dose 4 UNIT; Start 11/08/18 at 08:00 Fenofibrate (Tricor) 145 mg DAILY PO Last administered on 11/10/18 08:23; Admin Dose 145 MG; Start 11/08/18 at 09:00 Famotidine (Pepcid) 20 mg BID PO Last administered on 11/10/18 08:23; Admin Dose 20 MG; Start 11/08/18 at 21:00 Insulin Lispro Protam/Lispro Human (Humalog Mix (75/ 25)) 15 units QPM SC Last administered on 11/09/18 21:44; Admin Dose 15 UNITS; Start 11/09/18 at 21:00 LUZ MARINA MASCORRO MD Nov 10, 2018 11:27
[2018-11-10] MEDS: DIGOXIN 0.125 MG TAB PO SCH (12:40)
--- NOTE | 2018-11-10 12:50 | PN ---
Date/Time of Note Date/Time of Note DATE: 11/10/18 TIME: 12:48 Assessment/Plan VTE Prophylaxis Risk score (from Ns)>0 risk: 2 SCD applied (from Ns): No SCD contraindicated: low risk/ambulating Pharmacological prophylaxis: NA/contraindicated Pharm contraindication: low risk/ambulating Lines/Catheters IV Catheter Type (from Nrs): Saline Lock Urinary Cath still in place: No Assessment/Plan Assessment/Plan 1. Acute chest pain with dyspnea- resolved - patient states dizziness resolved and most likely secondary to gabapentin and Elavil - ECHO results noted with improvement in EF to 50% from 30% - serial trops negative - CTA negative for PE. Discussed nodule seen and need for outpatient monitoring - Cardiology consultation appreciated and recommending outpatient workup 2. Compensated systolic heart failure - ECHO results noted from 07/2018 - BNP with normal limits and no signs of congestion on CXR 3. DM - A1c noted - ISS and accuchecks 4. h/o CM - most likely chemotherapy induced 5. h/o Breast cancer - s/p lumpectomy, she had her last chemotherapy in July 2018 - follow up as outpatient 6. HTN - stable 7. HLD - Continue home medications 8. Osteoporosis - stable 9. Disposition - Medically stable for discharge home Result Diagram: 11/08/18 0256 11/08/18 0256 Results 24hrs Laboratory Tests Test 11/09/18 15:52 11/09/18 17:08 11/09/18 17:54 11/09/18 20:25 Bedside Glucose 240 H 218 199 203 Test 11/10/18 02:24 11/10/18 07:48 11/10/18 11:42 Bedside Glucose 295 H 287 H 479 *H Subjective 24 Hr Interval Summary Free Text/Dictation Patient is doing well and denies any acute issues. Does admit to weakness but denies any confusion, chest pain, or shortness of breath. Exam/Review of Systems Exam Vitals Vital Signs Date Temp Pulse Resp B/P (MAP) Pulse Ox O2 O2 Flow FiO2 Time Delivery Rate 11/10/18 86 12:01 11/10/18 98.2 20 110/56 95 Room Air 11:05 (74) Intake and Output 11/09/18 11/09/18 11/10/18 1515:00 23:00 07:00 IntakeIntake Total 1200 ml 450 ml BalanceBalance 1200 ml 450 ml Exam General: Patient is a pleasant female, resting comfortably Neck: Supple Chest: Nontender Lungs: Clear to auscultation bilaterally no crackles rales or wheezing, nonlabored breathing Heart: Normal S1-S2, Regular rhythm and rate. No murmur, S3, or S4 Abdomen: Soft , nontender, nondistended , bowel sounds are present. No guarding no rebound tenderness Extremities: Normal to inspection, no edema no cyanosis Results Results 24hrs Laboratory Tests Test 11/09/18 15:52 11/09/18 17:08 11/09/18 17:54 11/09/18 20:25 Bedside Glucose 240 H 218 199 203 Test 11/10/18 02:24 11/10/18 07:48 11/10/18 11:42 Bedside Glucose 295 H 287 H 479 *H Medications Medication Current Medications Nitroglycerin (Nitroglycerin (Sl Tab) 0.4 Mg) 1 tab Q5M UP TO 3 DOSES PRN SL .CHEST PAIN Last administered on 11/07/18at 21:43; Admin Dose 1 TAB; Start 11/07/18 at 21:30 IV Flush (NS 3 ml) 3 ml PER PROTOCOL IV ; Start 11/07/18 at 23:00 Ondansetron HCl (Zofran Inj) 4 mg Q6H PRN IV NAUSEA/VOMITING; Start 11/07/18 at 23:00 Aspirin (Aspirin) 81 mg DAILY PO Last administered on 11/09/18at 09:51; Admin Dose 81 MG; Start 11/08/18 at 09:00 Nitroglycerin (Nitroglycerin (Sl Tab) 0.4 Mg) 1 tab Q5M PRN SL .CHEST PAIN; Start 11/07/18 at 23:00 Acetaminophen (Tylenol Tab) 650 mg Q6H PRN PO .PAIN 1-3 OR TEMP; Start 11/07/18 at 23:00 Morphine Sulfate (morphine) 2 mg Q4H PRN IV .PAIN 7-10; Start 11/07/18 at 23:00 Docusate Sodium (Colace) 100 mg Q12H PRN PO .CONSTIPATION; Start 11/07/18 at 23:00 Bisacodyl (Dulcolax) 5 mg DAILY PRN PO .CONSTIPATION; Start 11/07/18 at 23:00 Alendronate Sodium (Fosamax) 70 mg Fr@0700 PO Last administered on 11/08/18 09:50; Admin Dose 70 MG; Start 11/08/18 at 07:00 Atorvastatin Calcium (Lipitor) 40 mg QHS PO Last administered on 11/09/18 21:41; Admin Dose 40 MG; Start 11/08/18 at 21:00 Calcium Carbonate (Oyster Shell Calcium) 1.25 gm DAILY PO Last administered on 11/10/18 08:23; Admin Dose 1.25 GM; Start 11/08/18 at 09:00 Carvedilol (Coreg) 12.5 mg BID PO Last administered on 11/10/18 08:23; Admin Dose 12.5 MG; Start 11/08/18 at 09:00 Digoxin (Digoxin) 0.125 mg DAILY@13 PO Last administered on 11/10/18 12:40; Admin Dose 0.125 MG; Start 11/08/18 at 13:00 Furosemide (Lasix) 40 mg DAILY PO Last administered on 11/10/18 08:24; Admin Dose 40 MG; Start 11/08/18 at 09:00 Insulin Glargine (Lantus) 40 units QHS SC Last administered on 11/09/18 21:49; Admin Dose 40 UNITS; Start 11/08/18 at 21:00 Lisinopril (Zestril) 5 mg DAILY PO Last administered on 11/10/18 08:23; Admin Dose 5 MG; Start 11/08/18 at 09:00 Diagnostic Test (Pha) (Accu-Chek) 1 ea 02 XX Last administered on 11/10/18 02:00; Admin Dose 1 EA; Start 11/08/18 at 02:00 Insulin Aspart (Novolog Insulin Pen) NOVOLOG *MILD* ALGORITHM WITH MEALS BEDTIME SC Last administered on 11/10/18 11:51; Admin Dose 7 UNIT; Start 11/08/18 at 08:00 Fenofibrate (Tricor) 145 mg DAILY PO Last administered on 11/10/18 08:23; Admi n Dose 145 MG; Start 11/08/18 at 09:00 Famotidine (Pepcid) 20 mg BID PO Last administered on 11/10/18 08:23; Admin Dose 20 MG; Start 11/08/18 at 21:00 Insulin Lispro Protam/Lispro Human (Humalog Mix (75/ 25)) 15 units QPM SC Last administered on 11/09/18at 21:44; Admin Dose 15 UNITS; Start 11/09/18 at 21:00 FABY THOMSON MD Nov 10, 2018 12:50
[2018-11-10] MEDS ORDERED: AMIT100T2 PO (12:52)
[2018-11-10] MEDS ORDERED: GABA300C16 PO (12:52)
[2018-11-10] MEDS ORDERED: NITR0.4T32 SL (12:52)
--- NOTE | 2018-11-10 12:57 | PDOCDIS ---
Discharge Instructions DIAGNOSIS Discharge Diagnosis 1. Acute chest pain with dyspnea- resolved 2. Compensated systolic heart failure 3. Diabetes Mellitus, type 2 4. h/o CM 5. h/o Breast cancer 6. HTN 7. HLD 8. Osteoporosis CONDITION [id number] Patient Condition: [id number] Stable HOME CARE INSTRUCTIONS: [id number] Diet Instructions: [id number] Low Fat /Cholesterol FOLLOW UP/APPOINTMENTS Follow-up Plan 1. Follow up with your primary care physician in 1-2 weeks 2. Continue taking all medications as prescribed for your heart 3. Do not take Elavil during the day time. Take this medication before bed if experiencing any nerve pain 4. Gabapentin is also a sedating medication and most likely contributing to your dizziness. If Elavil is not helping control your nerve pain, take 300mg at night before bed. Do not take this medications during the day 5. If experiencing any concerning symptoms. please go to the nearest emergency department FABY THOMSON MD Nov 10, 2018 12:57
--- NOTE | 2018-11-10 14:22 | DS ---
Date/Time of Note Date/Time of Note DATE: 11/10/18 TIME: 14:09 Discharge Summary Admission/Discharge Info Admit Date/Time Nov 09, 2018 at 06:27 Discharge Date/Time 11/10/18 Discharge Diagnosis 1. Acute chest pain with dyspnea- resolved 2. Compensated systolic heart failure 3. Diabetes Mellitus, type 2 4. h/o CM 5. h/o Breast cancer 6. HTN 7. HLD 8. Osteoporosis Patient Condition: Stable Consults Cardiology- Dr. Greene Hx of Present Illness This is a 73-year-old female who presented to the emergency department with symptoms of dyspnea. ED physician reported that the patient was expensing chest pain, however upon my encounter with the patient she denied having chest pain. She states that she has dyspnea at rest and on exertion. She states that this has gotten worse. She is compliant with her medications. She denies any lower extremity swelling at the current time. She denies any wheezing or orthopnea. She was treated previously for breast cancer and her last chemotherapy was in July. Allergies: NKDA Medications: Alendronate Amitriptyline Aspirin Atorvastatin Calcium carbonate Carvedilol Digoxin Fenofibrate Furosemide Gabapentin Insulin glargine Insulin lispro Lisinopril Janumet Vitamin D 2 Hospital Course Patient was complaining of dizziness and dyspnea on exertion at time of admission. Cardiology was consulted for evaluation of noted chest pain at time of admission. ACS was ruled out with negative serial trops and EKG negative for acute changes. Patients hospital course was complicated by an episode of slurred speech. CT head was performed with no acute findings. Patient was noted to have taken Elavil and Neurontin which was believed to be causing the symptoms She was evaluated by Tele neurology who determined it was not CVA etiology and out of the window for tPA. Elavil and Neurontin were held and patients slurred speech resolved the following day. patient remained stable and dizziness resolved. Vitals and physical exam remained stable. patient was discharged home in stable condition. Family updated on plan of care following discharge. Home Meds Active Scripts Nitroglycerin* (Nitroglycerin* SL) 0.4 Mg Tab.subl, 1 TAB SL Q5M PRN for .CHEST PAIN for 30 Days, #120 TAB Prov:FABY THOMSON MD 11/10/18 Amitriptyline Hcl* (Amitriptyline Hcl*) 100 Mg Tablet, 100 MG PO QHS PRN for nerve pain for 30 Days, #30 TAB Prov:FABY THOMSON MD 11/10/18 Gabapentin* (Gabapentin*) 300 Mg Capsule, 300 MG PO TID PRN for nerve pain for 30 Days, #90 CAP Prov:FABY THOMSON MD 11/10/18 Furosemide* (Furosemide*) 40 Mg Tablet, 40 MG PO DAILY for 30 Days, TAB Prov:MARIELY HERRERA MD 08/29/18 Digoxin* (Digitek*) 125 Mcg Tablet, 0.125 MG PO DAILY@13 for 30 Days, TAB Prov:MARIELY HERRERA MD 08/29/18 Reported Medications Lisinopril* (Lisinopril*) 5 Mg Tablet, 5 MG PO DAILY for 30 Days, #30 11/07/18 Atorvastatin* (Atorvastatin*) 40 Mg Tablet, 40 MG PO QHS for 30 Days, #30 11/07/18 Carvedilol* (Carvedilol*) 12.5 Mg Tablet, 12.5 MG PO BID for 30 Days, #60 11/07/18 Insulin Lispro Protamin/Lispro (Humalog Mix 75-25 Kwikpen) 100 Unit/1 Ml Insuln.pen, 10 UNIT SQ AC C 11/07/18 Insulin Glargine,Hum.rec.anlog (Basaglar Kwikpen U-100) 100 Unit/1 Ml Insuln.pen, 40 UNIT SQ QHS 08/21/18 Sitagliptin Phos/Metformin HCl (Janumet 50-1,000 mg Tablet) 1 Each Tablet, 1 TAB PO BID for 30 Days, #60 08/21/18 Fenofibrate, Micronized (Fenofibrate) 134 Mg Capsule, 134 MG PO DAILY for 30 Days, #30 08/21/18 Aspirin* (Aspirin* EC) 81 Mg Tablet.dr, 81 MG PO DAILY for 30 Days, #30 08/21/18 Ergocalciferol (Vitamin D2) (VITAMIN D2) 50,000 Unit Capsule, 89979 MG PO Q7D for 28 Days, #4 08/21/18 Calcium Carbonate* (Os-Cody 500*) 1 Tab Tablet, 1 TAB PO BID, TAB 11/25/15 Alendronate Sodium* (Fosamax*) 70 Mg Tablet, 70 MG PO Q7D PRN for QFRI, #4 TAB 11/25/15 Discontinued Reported Medications Calcium Carbonate ([place]ysco-500) 500 Mg Tablet, 500 MG PO DAILY for 30 Days, #60 08/21/18 Atorvastatin Calcium (Atorvastatin Calcium) 20 Mg Tablet, 20 MG PO DAILY for 30 Days, #30 08/21/18 Discontinued Scripts Carvedilol* (Carvedilol*) 3.125 Mg Tablet, 6.25 MG PO BID for 30 Days, TAB Prov:MARIELY HERRERA MD 08/29/18 Follow-up Plan 1. Follow up with your primary care physician in 1-2 weeks 2. Continue taking all medications as prescribed for your heart 3. Do not take Elavil during the day time. Take this medication before bed if experiencing any nerve pain 4. Gabapentin is also a sedating medication and most likely contributing to your dizziness. If Elavil is not helping control your nerve pain, take 300mg at night before bed. Do not take this medications during the day 5. If experiencing any concerning symptoms. please go to the nearest emergency department Primary Care Provider Not On Staff Doctor Time spent on discharge: > 30 minutes Pending Labs Laboratory Tests Test 11/09/18 15:52 11/09/18 17:08 11/09/18 17:54 11/09/18 20:25 Bedside 240 218 199 203 Glucose mg/dL (70-220) mg/dL (70-220) mg/dL (70-220) mg/dL (70-220) Test 11/10/18 02:24 11/10/18 07:48 11/10/18 11:42 Bedside 295 287 479 Glucose mg/dL (70-220) mg/dL (70-220) mg/dL (70-220) FABY THOMSON MD Nov 10, 2018 14:21
--- NOTE | 2018-11-11 07:25 | CONS ---
DATE OF ADMISSION: 11/09/2018 DATE OF CONSULTATION: 11/09/2018 REASON FOR CONSULTATION: I was asked to see the patient for decreased alertness and slurred speech. The information was acquired from the patient's hospitalist as well as the family. HISTORY OF PRESENT ILLNESS: The patient was non-Greenlandic speaking. The family served as an interpret er. The patient is 73 years old and was admitted to the hospital for dyspnea on exertion. The patie nt has a history of breast cancer and is currently undergoing chemotherapy. The patient was found le aned up against the bedside with slurred speech. Upon further assessing the situation it seems the fly blue's issues with change in nature of her speech date back to yesterday and have been mild. Has fly blue is on gabapentin, which was a new medication. She had previously taken it on a p.r.n. basis, but had been taking 900 mg a day. This is thought to be the source of her impaired alertness as well as her dysarthria. The patient has no other focality to her examination. No other complaints. The patient's blood sugar was acquired and was 240. PHYSICAL EXAMINATION: VITAL SIGNS: Currently being collected. NEUROLOGIC: She is alert. She is oriented. According to family, she has mild slurred speech. Extr aocular movements are full. She has no diplopia. Her face is symmetric. Her strength is 5/5 throug hout. Her fine motor movements are intact. She demonstrates no ataxia. Her sensation is grossly in tact. ASSESSMENT: The patient has encephalopathy, likely related to medications. It is unlikely that thes e symptoms are related to ischemia, given that there is a relative lack of focality and more likely e xploratory reason. Nonetheless, the patient's symptoms are relative remote, and the patient is outsi de of the tPA window. I would remove the gabapentin and follow the patient's examination. If it imp roves, no other assessment is needed. If her dysarthria persists, MRI scan of the brain with contras t may be advisable. Local neurologic consultation could be helpful. Dictated By: RODOLFO KUHN Conf#: [id number] DID#: [id number]
== END 2018-11-10 14:05 | disposition home or self-care (01) | DRG 291 ==
LOC: E/R 21:10 → 6WM 22:52 → OBSVTOIN 11-09 06:27
PROVIDERS: ADMIT Family Medicine; ATTEND Internal Medicine
DX: I50.20 Unspecified systolic (congestive) heart failure (principal); G92 Toxic encephalopathy; I42.9 Cardiomyopathy, unspecified; I11.0 Hypertensive heart disease with heart failure; R07.9 Chest pain, unspecified; Z72.0 Tobacco use; E11.9 Type 2 diabetes mellitus without complications; Z85.3 Personal history of malignant neoplasm of breast; R47.81 Slurred speech; M81.0 Age-related osteoporosis without current pathological fracture; T42.6X5A Adverse effect of other antiepileptic and sedative-hypnotic drugs, initial encounter
CPT/HCPCS: 36415; 36600; 70450; 71045; 71275; 80048; 80053; 80061; 82550; 82553; 82803; 82962; 83036; 83735; 83880; 84443; 84484; 85025; 93005; 93306; 97161; G0378; J1650; J1815; J7040; Q9967